=== PATIENT | female | born 1990 | race Caucasian/White ===

== ENCOUNTER 2023-09-06 09:03 | Outpatient (REF) | payer MEDICAID, SELFPAY ==
--- NOTE | ~2023-09-06 | XR_ITS ---
EXAMINATION: XR CERVICAL SPINE CLINICAL INFORMATION: Cervicalgia. COMPARISON: None available. TECHNIQUE: AP and lateral views of the cervical spine were obtained. FINDINGS: Vertebral body heights are normal. There is mild reversal of the normal lordotic curvature. The cervical disc spaces are well-maintained. No acute fracture or spondylolisthesis is seen. The posterior elements are intact. The dens is intact. No prevertebral soft tissue swelling is seen. There are carotid atherosclerotic calcifications, left greater than right. XR/XR cervical spine 2V IMPRESSION: 1. There is mild reversal of the normal lordotic curvature, which can be associated with muscle spasm. 2. No acute fracture or spondylolisthesis is seen. 3. The cervical disc spaces are well-maintained. 4. Bilateral carotid atherosclerotic calcifications are seen, which can be more fully evaluated with dedicated carotid ultrasound, if clinically indicated.
--- NOTE | ~2023-09-06 | XR_ITS ---
EXAMINATION: XR SHOULDER, RIGHT CLINICAL INFORMATION: Pain. COMPARISON: None available. TECHNIQUE: AP internal rotation, external rotation and scapula Y views of the right shoulder are submitted. FINDINGS: The bones and soft tissues are normal. No fracture. Glenohumeral and acromioclavicular alignment is anatomic with normal joint space. No abnormal soft tissue calcifications. XR/XR shoulder RT min 2V IMPRESSION: Normal right shoulder.
== END 2023-09-06 09:04 | disposition home or self-care (01) ==
LOC: HO.HOSX 09:03
PROVIDERS: Visit Provider Orthopaedic Surgery
DX: M54.2 Cervicalgia (principal); M25.511 Pain in right shoulder; M54.50 Low back pain, unspecified; M25.512 Pain in left shoulder
CPT/HCPCS: 72040; 73030; 99202

== ENCOUNTER 2023-09-06 09:35 | Outpatient (AMB) | payer MEDICAID, SELFPAY ==
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
[2023-09-06 10:03] VITALS: BMI 33.0
== END 2023-09-06 10:28 | disposition home or self-care (01) ==
PROVIDERS: Visit Provider Orthopaedic Surgery
DX: M54.2 Cervicalgia (principal); M25.511 Pain in right shoulder; M54.50 Low back pain, unspecified
CPT/HCPCS: 99202

== ENCOUNTER 2023-09-27 08:14 | Emergency (ER) | payer MEDICAID, SELFPAY ==
[2023-09-27 08:21] VITALS: BP 123/66; PULSE 83; RESP 18; TEMP 37.1; O2SAT 98; BMI 34.3
[2023-09-27 08:44] LABS: MANUAL DIFF FLAG NO
[2023-09-27 08:46] LABS: Basophils Percent Auto 0.3 % (0-2); Eosinophils Percent Auto 0.4 % (0-4); Hematocrit 38.1 % (37.0-47.0); Hemoglobin 12.6 g/dl (12.0-16.0); Imm Gran Abs Auto 0.04 X10*3/uL (0.00-0.03); Imm Gran Pct Auto 0.4 % (0.0-0.4); Lymphocytes Percent Auto 32.5 % (20-40); Mean Corpuscular HGB Conc 33.1 g/dl (31.0-35.0); Mean Corpuscular Hemoglobin 30.3 pg (27.0-33.0); Mean Corpuscular Volume 91.6 fL (80.0-98.0); Mean Platelet Volume 8.6 fL (9.4-12.3); Monocytes Absolute Auto 0.7 X10*3/uL (0.1-1.2); Monocytes Percent Auto 7.5 % (2-11); Neutrophils Absolute Auto 5.4 x10*3/uL (2.0-8.3); Neutrophils Percent Auto 58.9 % (45-73); Platelet Count 349 X10*3/uL (160-400); Red Blood Count 4.16 X10*6/uL (4.20-5.50); Red Cell Distribution Width 12.3 % (11.0-16.0); White Blood Count 9.1 X10*3/uL (4.8-10.8)
[2023-09-27 08:47] LABS: Appearance Urine Clear; Color Urine Yellow; Glucose Urine UA Negative (Negative); Leukocyte Esterase Urine Negative (Negative); Nitrite Urine Negative (Negative); Urine Blood Negative (Negative); Urine Ketones Negative (Negative); Urine Protein Negative (Neg-Trace)
[2023-09-27 08:48] LABS: UPreg QC Valid YES; Urine Pregnancy NEGATIVE (NEGATIVE)
[2023-09-27 08:53] LABS: IDNOW Serial# 08D9AD1C; Strep A Nucleic Acid Negative (Negative)
[2023-09-27 09:00] LABS: Anion Gap 13 (12-20); Blood Urea Nitrogen 10 mg/dL (9-16); Carbon Dioxide 23 mmol/L (22-29); Chloride 107 mmol/L (96-108); Creatinine Clr Calc Pharmacy 107.2; Estimated Glomerular Filt Rate > 60; Glucose Random 85 mg/dL (60-115); Potassium 3.8 mmol/L (3.3-5.1); Sodium 139 mmol/L (135-145)
[2023-09-27 09:05] LABS: IDNOW Serial# BCCEAD1C
[2023-09-27 09:06] LABS: COVID-19 Test Negative (Negative)
--- NOTE | 2023-09-27 09:08 | PC.NURSE ---
PT EATING CHIPS AND DRINKING SODA ON WAY TO ROOM
--- NOTE | 2023-09-27 09:11 | ED_ITS ---
HPI - General Adult General Chief complaint: General Medical Stated complaint: Coughing up blood, pain in left side of face Time Seen by Provider: 09/27/23 09:10 Source: patient Mode of arrival: ambulatory Limitations: no limitations History of Present Illness HPI narrative: 33-year-old female who presents emergency department for evaluation of left- sided facial discomfort, headache, photophobia, chills, sore throat, cough, shortness of breath, nausea, vomiting, myalgias, arthralgias and fatigue. Patient states she has been sick for 2 days her symptoms got worse today states that she has had a cough which was nonproductive but today she had several episodes where she coughed up small amount of bright red blood. He denied chest pain but states she does have shortness of breath but no dyspnea on exertion. She states that the skin on the left side of her face is very sensitive but she has not noticed any numbness or facial droop. Patient states she does have a history of genital herpes it and takes valacyclovir Related Data Previous Rx's Medication Instructions Recorded amoxicillin 500 mg capsule 1,000 mg (2 x 500 mg) PO Q12H 5 09/27/23 days #20 caps doxycycline hyclate 100 mg tablet 100 mg PO Q12H 5 days #10 tabs 09/27/23 Allergies Allergy/AdvReac Type Severity Reaction Status Date / Time atropine [From B-Maryam] Allergy Unknown Verified 09/06/23 10:02 bee pollen Allergy Unknown Verified 09/06/23 10:02 hyoscyamine [From B-Maryam] Allergy Unknown Verified 09/06/23 10:02 phenobarbital [From B-Maryam] Allergy Unknown Verified 09/06/23 10:02 scopolamine [From B-Maryam] Allergy Unknown Verified 09/06/23 10:02 abilify Allergy Unknown Uncoded 09/06/23 10:02 fish Allergy Unknown Uncoded 09/06/23 10:02 nuts Allergy Unknown Uncoded 09/06/23 10:02 resperdal Allergy Unknown Uncoded 09/06/23 10:02 Review of Systems 2 Review of Systems: Yes all other systems are reviewed and are negative [facility] Past Medical History [facility] Narrative: Past medical history: Neck and lower back pain, herpes simplex social history: Patient vapes nicotine products. She denies alcohol. She smokes marijuana Surgical History (Updated 09/06/23 @ 10:02 by SHAWN Treviño) Hx of section Social History Social History (Updated 09/06/23 @ 10:03 by SHAWN Treviño) e-Cigarette/Vaping Use: Currently Using Advance Directives: No Advance Directives Information Provided: Yes Current occupational status: unemployed Current occupation: right hand dominant Physical Exam ED Vital Signs: Vital Signs - 24 hr 09/27/23 08:21 09/27/23 09:29 Temperature 98.7 F 99.4 F Pulse Rate 83 66 Respiratory Rate 18 18 Blood Pressure 123/66 120/72 Pulse Oximetry 98 99 Oxygen Delivery Method Room Air Room Air BMI result Body Mass Index 34.3 Vital signs were no Exam General: Awake, alert in no distress Head: Normocephalic, atraumatic EENT: PERRL, Lids normal, sclera normal, conjunctiva normal, nose normal , ears normal, throat without erythema or exudates Neck: Supple, no adenopathy, no trachea midline or C-spine tenderness Lung: breath sounds symmetric, no wheezing, rales or rhonchi Chest: symmetric movement, nontender Heart: regular rate and rhythm, normal S1, S2 no murmurs or rubs Abdomen: soft, non-tender, nondistended, normal bowel sounds Back: no vertebral tenderness, no CVAT Extremities: no deformities, moves all extremities symmetrically Skin: no rashes, no lesion, normal color and warmth Neuro: Awake, alert, oriented, normal speech, cranial nerves intact, moves all extremities symmetrically Psych: Pleasant, cooperative Medical Decision Making Medical Decision Making MDM Narrative: 33-year-old female who presents emergency department for evaluation of left- sided facial discomfort, headache, photophobia, chills, sore throat, cough, shortness of breath, nausea, vomiting, myalgias, arthralgias and fatigue x2 days. Patient's physical examination was unremarkable, there is no evidence for Miranda's palsy at this time Following evaluation was ordered: CBC, BMP, COVID-19, strep, urinalysis, urine test 09:41 Patient's laboratory evaluation was unremarkable including a negative COVID and rapid strep test Patient's presentation is consistent with acute bronchitis causing hemoptysis, patient will be treated with doxycycline 100 mg q.12 hours x5 days and amoxicillin 1000 mg q.12 hours x5 days. At this time the patient does not have any evidence for Miranda's palsy but I did discuss the signs and symptoms and the need to return to the emergency department follow-up with her doctor for re-evaluation. Patient was advised to take Tylenol ibuprofen for pain. She was given printed and verbal instructions and discharged home Differential Diagnosis Differential Diagnoses: The differential diagnosis associated with the presentation includes Differential diagnosis includes was not limited to acute viral illness, bronchitis, pneumonia, Miranda's palsy, migraine, stroke Admission/Observation Consideration of admission/observation: Escalation of care including admission/observation considered Lab Data [facility] Lab Attestation statement: I reviewed the patient's lab results. See [facility] for discuss 09/27/23 08:37 09/27/23 08:37 Labs: Lab Results 09/27/23 Range/Units 08:37 WBC 9.1 (4.8-10.8) X10*3/uL RBC 4.16 L (4.20-5.50) X10*6/uL Hgb 12.6 (12.0-16.0) g/dl Hct 38.1 (37.0-47.0) % MCV 91.6 (80.0-98.0) fL MCH 30.3 (27.0-33.0) pg MCHC 33.1 (31.0-35.0) g/dl RDW 12.3 (11.0-16.0) % Plt Count 349 (160-400) X10*3/uL MPV 8.6 L (9.4-12.3) fL Immature Gran % (Auto) 0.4 (0.0-0.4) % Neut % (Auto) 58.9 (45-73) % Lymph % (Auto) 32.5 (20-40) % [place] % (Auto) 7.5 (2-11) % Eos % (Auto) 0.4 (0-4) % Baso % (Auto) 0.3 (0-2) % Lymph # (Auto) 3.0 (1.2-4.9) X10*3/uL [place] # (Auto) 0.7 (0.1-1.2) X10*3/uL Eos # (Auto) 0.0 (0.0-0.4) X10*3/uL Baso # (Auto) 0.0 (0.0-0.2) X10*3/uL Abs Immat Gran (auto) 0.04 H (0.00-0.03) X10*3/uL Absolute Neuts (auto) 5.4 (2.0-8.3) x10*3/uL Absolute Nucleated RBC 0.000 (0.0-0.012) X10*3/uL Nucleated RBC % (auto) 0.0 (0.0-0.2) /100WBC Sodium 139 (135-145) mmol/L Potassium 3.8 (3.3-5.1) mmol/L Chloride 107 (96-108) mmol/L Carbon Dioxide 23 (22-29) mmol/L Anion Gap 13 (12-20) BUN 10 (9-16) mg/dL Creatinine 0.71 (0.5-1.4) mg/dL Estim Creat Clear Calc 107.2 Estimated GFR > 60 Random Glucose 85 (60-115) mg/dL Calcium 9.0 (8.4-10.2) mg/dL Urine Color Yellow Urine Appearance Clear Urine pH 7.0 (5.0-9.0) Ur Specific [place] 1.020 (1.005-1.025) Urine Protein Negative (Neg-Trace) mg/dL Urine Glucose (UA) Negative (Negative) mg/dL Urine Ketones Negative (Negative) mg/dL Urine Blood Negative (Negative) Urine Nitrite Negative (Negative) Ur Leukocyte Esterase Negative (Negative) Urine Test NEGATIVE (NEGATIVE) COVID-19 (JIM) Negative (Negative) COVID-19 Clin Com See Note S. pyogenes GrpA LAURA Negative (Negative) Prescription Management I considered prescription management with: Antibiotic Discharge Plan Discharge Clinical Impression: Bronchitis, Hemoptysis, Acute facial pain Patient Disposition: Home, Self-Care Instructions: Acute Bronchitis (ED), Hemoptysis (ED) Additional Instructions: Your blood work was normal pain Your urine test was normal pain Your COVID-19 and rapid strep test were negative Your symptoms are consistent with a bronchitis which is an infection of your breathing tubes and this is most likely causing you to cough up blood. Take doxycycline 100 mg, 1 pill every 12 hours for 7 days Take amoxicillin 500 mg pills, 2 pills, every every 12 hours (2 times a day) for 5 days. Take ibuprofen 200 mg pills, 2 pills every 6 hours as needed for pain or fever. Take Tylenol (acetaminophen) 500 mg pills, 2 pills every 6 hours as needed for pain or fever. At this time, I believe that the pain of your skin on the left side of your face is related to a viral infection, you do not have any facial weakness but you may be developing early Miranda's palsy(cranial nerve 7 swelling caused by a viral). If you notice that your left eye is not closing completely or your left lip is droop then return to the emergency depart for re-evaluation and treatment or you should see your doctor for treatment Follow-up with your doctor in 2 days. Please return to the emergency department if your symptoms get worse or if you develop any symptoms that are concerning to you. Prescriptions: New amoxicillin 500 mg capsule 1,000 mg PO Q12H 5 Days Qty: 20 0RF doxycycline hyclate 100 mg tablet 100 mg PO Q12H 5 Days Qty: 10 0RF
[2023-09-27 09:29] VITALS: BP 120/72; PULSE 66; RESP 18; TEMP 37.4; O2SAT 99
== END 2023-09-27 10:02 | disposition home or self-care (01) ==
PROVIDERS: Emergency Provider Emergency Medicine Emergency Medical Services
DX: J40 Bronchitis, not specified as acute or chronic (principal); R31.9 Hematuria, unspecified; R51.9 Headache, unspecified; Z11.52 Encounter for screening for COVID-19; Z20.822 Contact with and (suspected) exposure to COVID-19; Z79.899 Other long term (current) drug therapy
CPT/HCPCS: 36415; 80048; 81003; 81025; 85025; 87635; 87651; 99283; 99284

== ENCOUNTER 2023-10-17 01:09 | Emergency (ER) | payer MEDICAID, SELFPAY ==
--- NOTE | 2023-10-17 | ECG_ITS ---
Test Reason : FLU LIKE SYMPTOMS Blood Pressure : / mmHG Vent. Rate : 077 BPM Atrial Rate : 077 BPM P-R Int : 128 ms QRS Dur : 090 ms QT Int : 380 ms P-R-T Axes : 068 071 032 degrees QTc Int : 430 ms Normal sinus rhythm Normal ECG No previous ECGs available Referred By: Generic ED Physician Electronically Signed By:SHELLI PRIETO
--- NOTE | ~2023-10-17 | XR_ITS ---
EXAMINATION: XR CHEST CLINICAL INFORMATION: Shortness of breath. COMPARISON: None available. TECHNIQUE: Frontal view of the chest was obtained. FINDINGS: No significant abnormality is noted involving the heart, lungs, mediastinum, bony thorax or soft tissues. XR/XR chest 1V IMPRESSION: Unremarkable examination.
[2023-10-17 01:56] VITALS: BP 133/79; PULSE 86; RESP 19; TEMP 36.7; O2SAT 98; BMI 34.1
[2023-10-17 02:19] LABS: MANUAL DIFF FLAG NO
[2023-10-17 02:21] LABS: Basophils Percent Auto 0.4 % (0-2); Eosinophils Absolute Auto 0.1 X10*3/uL (0.0-0.4); Eosinophils Percent Auto 0.8 % (0-4); Hemoglobin 12.5 g/dl (12.0-16.0); Imm Gran Abs Auto 0.03 X10*3/uL (0.00-0.03); Imm Gran Pct Auto 0.3 % (0.0-0.4); Lymphocytes Absolute Auto 3.7 X10*3/uL (1.2-4.9); Lymphocytes Percent Auto 35.8 % (20-40); Mean Corpuscular HGB Conc 33.8 g/dl (31.0-35.0); Mean Corpuscular Hemoglobin 30.3 pg (27.0-33.0); Mean Corpuscular Volume 89.8 fL (80.0-98.0); Mean Platelet Volume 8.5 fL (9.4-12.3); Monocytes Absolute Auto 1.1 X10*3/uL (0.1-1.2); Monocytes Percent Auto 10.6 % (2-11); Neutrophils Absolute Auto 5.5 x10*3/uL (2.0-8.3); Neutrophils Percent Auto 52.1 % (45-73); Platelet Count 336 X10*3/uL (160-400); Red Blood Count 4.12 X10*6/uL (4.20-5.50); Red Cell Distribution Width 12.4 % (11.0-16.0); White Blood Count 10.5 X10*3/uL (4.8-10.8)
[2023-10-17 02:34] LABS: Alanine Aminotransferase 15 U/L (0-31); Albumin Level 4.3 g/dL (3.5-5.0); Alkaline Phosphatase 61 U/L (39-117); Anion Gap 14 (12-20); Aspartate Amino Transferase 20 U/L (5-31); Bilirubin Total 0.5 mg/dL (0.0-1.0); Blood Urea Nitrogen 16 mg/dL (9-16); Calcium 8.9 mg/dL (8.4-10.2); Carbon Dioxide 24 mmol/L (22-29); Chloride 104 mmol/L (96-108); Creatinine Clr Calc Pharmacy 92.6; Estimated Glomerular Filt Rate > 60; Glucose Random 106 mg/dL (60-115); Potassium 3.4 mmol/L (3.3-5.1); Sodium 139 mmol/L (135-145); Total Protein 7.5 g/dL (6.5-8.0)
[2023-10-17 02:38] LABS: IDNOW Serial# 58CA691E; Strep A Nucleic Acid Negative (Negative)
[2023-10-17 03:02] LABS: Influenza A PCR NEGATIVE (Negative); Influenza B PCR NEGATIVE (Negative); Resp Syncy Virus RNA Qual PCR NEGATIVE (Negative); SARS COV2 PCR INHOUSE NEGATIVE (Negative)
[2023-10-17 03:58] VITALS: BP 101/51; PULSE 78; RESP 17; TEMP 36.6; O2SAT 97
== END 2023-10-17 06:05 | disposition left against medical advice (07) ==
PROVIDERS: Physician Assistant Medical; Emergency Provider Emergency Medicine
DX: R05.9 Cough, unspecified (principal); R06.02 Shortness of breath; Z20.822 Contact with and (suspected) exposure to COVID-19; Z20.828 Contact with and (suspected) exposure to other viral communicable diseases
CPT/HCPCS: 0241U; 36415; 71045; 80053; 85025; 87651; 93005; 99283

== ENCOUNTER → 2023-10-17 02:06 | Outpatient (BNV) | payer MEDICAID, SELFPAY | PROVIDERS: Emergency Provider Emergency Medicine; Visit Provider Internal Medicine | DX: R09.89 Other specified symptoms and signs involving the circulatory and respiratory systems (principal) | CPT/HCPCS: 93010 ==

== ENCOUNTER 2023-12-21 18:02 | Outpatient (REF) | payer MEDICAID, SELFPAY | END 2023-12-21 18:03 | disposition home or self-care (01) | LOC: HO.MRI 18:02 | PROVIDERS: Visit Provider Orthopaedic Surgery | DX: Z13.89 Encounter for screening for other disorder (principal) ==

== ENCOUNTER 2024-01-12 15:32 | Emergency (ER) | payer MEDICAID, SELFPAY ==
--- NOTE | ~2024-01-12 | US_ITS ---
EXAMINATION: US PELVIS CLINICAL INFORMATION: Vaginal bleeding and cramping. Question miscarriage. COMPARISON: None available. TECHNIQUE: Ultrasound of the pelvis is performed using transabdominal transducers along with Doppler. Transvaginal imaging was declined by the patient. FINDINGS: Uterus: The uterus is anteverted and measures 7.5 x 3.2 x 4.4 cm. Volume 55.29 mL. No intrauterine gestational sac seen. The double wall endometrial thickness is 0.196 cm. The uterus is smooth in contour and has normal myometrial echogenicity. No visible fibroid. Adnexa: Both ovaries are visualized. There is normal color flow to the adnexa. There is no ovarian torsion. There is no pelvic ascites or fluid collection. Right ovary measures 2.9 x 1.6 x 2.3 cm. Left ovary measures 2.9 x 1.8 x 2.0 cm. There is anechoic cyst measuring 1.6 x 1.2 x 1.2 cm US/US pelvic and transvaginal IMPRESSION: 1. No intrauterine or gestational sac seen. The uterus is unremarkable. This could be too early in or spontaneous . 2. Small left ovarian cyst. 3. The right ovary is unremarkable. 4. There is no free fluid in the cul-de-sac.
[2024-01-12 16:11] VITALS: BP 131/77; PULSE 95; RESP 16; TEMP 36.8; O2SAT 98; BMI 29.3
--- NOTE | 2024-01-12 16:11 | ED_ITS ---
HPI - Female Genitourinary General Chief complaint: Vaginal Bleeding Stated complaint: miscarriage Time Seen by Provider: 01/12/24 19:22 Source: patient Mode of arrival: ambulatory Limitations: no limitations History of Present Illness HPI Narrative: 33 year old female with no significant pmhx presents to the ED today for evaluation of vaginal bleeding x5 days. She reports changing pads every 30 minutes. Denies passing clots. Additionally endorses associated lower abdominal cramping and an episode of dizziness today. She has not currently on control as she stopped taking OCPs approximately 4 months ago. Endorses possibility of . Her last menstrual period was at the beginning of November. Denies fever, chills, flank pain, dysuria, hematuria, abnormal, vaginal discharge. Related Data Previous Rx's Medication Instructions Recorded amoxicillin 500 mg capsule 1,000 mg (2 x 500 mg) PO Q12H 5 09/27/23 days #20 caps doxycycline hyclate 100 mg tablet 100 mg PO Q12H 5 days #10 tabs 09/27/23 Allergies Allergy/AdvReac Type Severity Reaction Status Date / Time atropine [From B-Maryam] Allergy Unknown Verified 01/12/24 16:11 bee pollen Allergy Unknown Verified 01/12/24 16:11 hyoscyamine [From B-Maryam] Allergy Unknown Verified 01/12/24 16:11 phenobarbital [From B-Maryam] Allergy Unknown Verified 01/12/24 16:11 scopolamine [From B-Maryam] Allergy Unknown Verified 01/12/24 16:11 abilify Allergy Unknown Uncoded 10/17/23 01:56 fish Allergy Unknown Uncoded 10/17/23 01:56 nuts Allergy Unknown Uncoded 10/17/23 01:56 resperdal Allergy Unknown Uncoded 10/17/23 01:56 Review of Systems 2 Review of Systems: Constitutional: No fever, chills, fatigue, night sweats, weight changes ENT/Mouth: No ear pain, hearing loss, nasal congestion, sinus pain, rhinorrhea, sore throat Eyes: No eye pain, swelling, redness, vision changes, discharge Cardio: No chest pain, palpitations, THOMPSON, orthopnea, peripheral edema Pulm: No SOB, cough, sputum, wheezing, dyspnea, hemoptysis GI: No nausea, vomiting, hematemesis, diarrhea, constipation, hematochezia, melena, +lower abd cramping : No dysuria, frequency, urgency, hesitancy, hematuria, flank pain, urinary flow changes, urinary incontinence or retention, +vaginal bleeding MSK: No back pain, neck pain, joint pain, myalgias Skin: No lesions, rashes Neuro: No weakness, numbness, paresthesias, LOC, dizziness, headache Psych: No anxiety/panic, depression, SI/HI, AH/VH All other systems reviewed and are negative. [facility] Past Medical History Attestation statement: The following information was validated with the patient. Source: old records reviewed and nursing notes reviewed Surgical History Hx of section Social History Social History e-Cigarette/Vaping Use: Currently Using Advance Directives: No Advance Directives Information Provided: No Current occupational status: unemployed Current occupation: right hand dominant Physical Exam 2 Vital Signs: Vital Signs: Last Vital Signs Temp 97.9 F 01/12/24 19:20 Pulse 75 01/12/24 19:20 Resp 16 01/12/24 19:20 BP 125/68 01/12/24 19:20 Pulse Ox 100 01/12/24 19:20 O2 Del Method Room Air 01/12/24 19:20 BMI result Body Mass Index 29.3 Vital signs stable, afebrile. Const: General: cooperative, healthy appearing, comfortable and no acute distress Orientation/consciousness: patient oriented x3 Limitations: no limitations HEENT: Head: Yes normal to inspection, Yes No palpable skull fracture present, Yes normocephalic and Yes atraumatic Eyes: General: appearance normal, both eyes and all related structures C onjunctivae: conjunctivae normal Sclerae: sclerae normal Pupils: Equal, round and reactive pupils present Neck: Neck: Yes normal visual inspection, Yes full ROM and Yes no lymphadenopathy Resp: Effort & Inspection: normal respiratory effort and able to speak in complete sentences Auscultation: clear to auscultation bilaterally Cardio: Jugular venous distension: no JVD Rate: regular rate Rhythm: r egular rhythm GI: Other: + abdomen soft, nondistended, nontender to palpation, no rebound tenderness or guarding. Normoactive bowel sounds x4. Inspection: Yes normal to inspection : General: Yes no CVA tenderness Back/Spine/Pelvis: Back: no CVA tenderness Skin: General skin exam: no rashes or lesions noted Neuro: General: patient oriented x3 and gait normal Cranial nerves: Yes Equal, round and reactive pupils present Motor exam (neuro): 5/5 motor strength present throughout Extrem: General: Yes normal to inspection and Yes capillary refill normal Course Course Course Narrative: RME:?33 yo female here for eval of vaginal bleeding x5 days. changing pads every half hour. no clotting. endorses low abd cramping and increased dizziness. not currently on BC as she stopped taking OCPs 4 months ago. LMP beginning of november. labs, UA and US ordered. Full HPI, ROS and PE to be performed by the primary ED provider. Reevaluation(s) Reevaluation #1: 1937-- CBC without leukocytosis or left shift. No anemia. H&H stable. Chemistry without acute electrolyte abnormality requiring intervention. Beta hCG undetectable > unlikely. Normal renal and liver function. Urine is negative for infection and . No blood. Pelvic/transvaginal ultrasound does not demonstrate intrauterine or gestational sac. There is a small left ovarian cyst without free fluid in cul-de-sac. Right ovary is unremarkable. > at this time I do not have concern for spontaneous as beta hCG is undetectable. Patient likely has dysmenorrhea with menstrual period. Discussed all workup results with patient. Advised her to take anti-inflammatories at home for pain/discomfort. Advised her to follow-up with her PCP and or OBGYN regarding today's visit. Patient has remained stable throughout ED visit today. Discussed worrisome signs and symptoms and when to return to the ED. All questions answered at this time. Patient is agreeable with disposition and stable for discharge. Medical Decision Making Medical Decision Making MDM Narrative: 33 year old female with no significant pmhx presents to the ED today for evaluation of vaginal bleeding x5 days. Vital signs stable, afebrile. She is nontoxic-appearing and in no acute distress. No pallor. Lying comfortably on exam bed. Abdomen is soft, nondistended, nontender to palpation, no rebound tenderness or guarding. Normoactive bowel sounds x4. Bladder not palpable. No CVAT bilaterally. Differential diagnosis includes , menstrual cramps, spontaneous , ovarian cyst, ovarian cyst rupture. Lower suspicion for pyelonephritis, UTI, ovarian torsion, ectopic . Plan for labs, urine, ultrasound and re-evaluation. Differential Diagnosis Differential Diagnoses: The differential diagnosis associated with the presentation includes As above Admission/Observation Not indicated Lab Data MDM Lab Attestation statement: I reviewed the patient's lab results. As above 01/12/24 17:35 01/12/24 17:35 Labs: Lab Results 01/12/24 01/12/24 Range/Units 17:35 18:45 WBC 8.1 (4.8-10.8) X10*3/uL RBC 4.71 (4.20-5.50) X10*6/uL Hgb 14.0 (12.0-16.0) g/dl Hct 42.5 (37.0-47.0) % MCV 90.2 (80.0-98.0) fL MCH 29.7 (27.0-33.0) pg MCHC 32.9 (31.0-35.0) g/dl RDW 12.6 (11.0-16.0) % Plt Count 344 (160-400) X10*3/uL MPV 8.4 L (9.4-12.3) fL Immature Gran % (Auto) 0.2 (0.0-0.4) % Neut % (Auto) 56.2 (45-73) % Lymph % (Auto) 34.5 (20-40) % [place] % (Auto) 8.2 (2-11) % Eos % (Auto) 0.5 (0-4) % Baso % (Auto) 0.4 (0-2) % Lymph # (Auto) 2.8 (1.2-4.9) X10*3/uL [place] # (Auto) 0.7 (0.1-1.2) X10*3/uL Eos # (Auto) 0.0 (0.0-0.4) X10*3/uL Baso # (Auto) 0.0 (0.0-0.2) X10*3/uL Abs Immat Gran (auto) 0.02 (0.00-0.03) X10*3/uL Absolute Neuts (auto) 4.6 (2.0-8.3) x10*3/uL Absolute Nucleated RBC 0.000 (0.0-0.012) X10*3/uL Nucleated RBC % (auto) 0.0 (0.0-0.2) /100WBC PT 12.1 (11.1-13.3) SEC INR 1.0 (0.9-1.1) Sodium 140 (135-145) mmol/L Potassium 3.7 (3.3-5.1) mmol/L Chloride 105 (96-108) mmol/L Carbon Dioxide 30 H (22-29) mmol/L Anion Gap 9 L (12-20) BUN 7 L (9-16) mg/dL Creatinine 0.75 (0.5-1.4) mg/dL Estim Creat Clear Calc 93.5 Estimated GFR > 60 Random Glucose 103 (60-115) mg/dL Calcium 9.3 (8.4-10.2) mg/dL Total Bilirubin 0.4 (0.0-1.0) mg/dL AST 16 (5-31) U/L ALT 16 (0-31) U/L Alkaline Phosphatase 80 (39-117) U/L Total Protein 7.1 (6.5-8.0) g/dL Albumin 4.2 (3.5-5.0) g/dL Beta HCG, Quant < 2 mIU/mL Urine Color Yellow Urine Appearance Clear Urine pH 6.0 (5.0-9.0) Ur Specific [place] >= 1.030 H (1.005-1.025) Urine Protein Negative (Neg-Trace) mg/dL Urine Glucose (UA) Negative (Negative) mg/dL Urine Ketones Negative (Negative) mg/dL Urine Blood Negative (Negative) Urine Nitrite Negative (Negative) Ur Leukocyte Esterase Negative (Negative) Urine Test NEGATIVE (NEGATIVE) Independent Interpretation I performed an independent interpretation of an: Ultrasound Interpretation: I have reviewed pelvic/transvaginal ultrasound and agree with radiologist's interpretation. Radiology Impression Discussion of test interpretation with radiology: I have reviewed the radiologist's reading. Radiologist Impression: EXAMINATION: US PELVIS CLINICAL INFORMATION: Vaginal bleeding and cramping. Question miscarriage. COMPARISON: None available. TECHNIQUE: Ultrasound of the pelvis is performed using transabdominal transducers along with Doppler. Transvaginal imaging was declined by the patient. FINDINGS: Uterus: The uterus is anteverted and measures 7.5 x 3.2 x 4.4 cm. Volume 55.29 mL. No intrauterine gestational sac seen. The double wall endometrial thickness is 0.196 cm. The uterus is smooth in contour and has normal myometrial echogenicity. No visible fibroid. Adnexa: Both ovaries are visualized. There is normal color flow to the adnexa. There is no ovarian torsion. There is no pelvic ascites or fluid collection. Right ovary measures 2.9 x 1.6 x 2.3 cm. Left ovary measures 2.9 x 1.8 x 2.0 cm. There is anechoic cyst measuring 1.6 x 1.2 x 1.2 cm US/US pelvic and transvaginal IMPRESSION: 1. No intrauterine or gestational sac seen. The uterus is unremarkable. This could be too early in or spontaneous . 2. Small left ovarian cyst. 3. The right ovary is unremarkable. 4. There is no free fluid in the cul-de-sac. External Record Review External record reviewed: Inpatient record, Office record, Outpatient record, Prior outpatient labs, Prior outpatient radiology, Primary care record and Outside ED record Prescription Management I considered prescription management with: Pain Medication Social Determinants Patient?s care significantly limited by Social Determinants of Health including: Other Social Determinant of Health Discharge Plan Discharge Clinical Impression: Dysmenorrhea Patient Disposition: Home, Self-Care Instructions: Dysmenorrhea (ED) Additional Instructions: Your labs today are reassuring. You tested negative for . Your urine is negative for infection. As discussed, your ultrasound shows normal uterus with a small left ovarian cyst. Take tylenol as needed for pain/ discomfort. Follow up with PCP and/or OBGYN. Return with new or worsening symptoms. In the case of emergency call 911. Prescriptions: No Action amoxicillin 500 mg capsule 1,000 mg PO Q12H 5 Days Qty: 20 0RF doxycycline hyclate 100 mg tablet 100 mg PO Q12H 5 Days Qty: 10 0RF Referrals: Physician,Unknown J [Primary Care Provider] - Stand Alone Forms: Work/School Release Interventions: ED Discharge Assessment Last Done: 01/12/24 19:45 Discharge Date/Time: 01/12/24 19:50
[2024-01-12 17:40] LABS: MANUAL DIFF FLAG NO
[2024-01-12 17:45] LABS: Basophils Percent Auto 0.4 % (0-2); Eosinophils Percent Auto 0.5 % (0-4); Hematocrit 42.5 % (37.0-47.0); Imm Gran Abs Auto 0.02 X10*3/uL (0.00-0.03); Imm Gran Pct Auto 0.2 % (0.0-0.4); Lymphocytes Absolute Auto 2.8 X10*3/uL (1.2-4.9); Lymphocytes Percent Auto 34.5 % (20-40); Mean Corpuscular HGB Conc 32.9 g/dl (31.0-35.0); Mean Corpuscular Hemoglobin 29.7 pg (27.0-33.0); Mean Corpuscular Volume 90.2 fL (80.0-98.0); Mean Platelet Volume 8.4 fL (9.4-12.3); Monocytes Absolute Auto 0.7 X10*3/uL (0.1-1.2); Monocytes Percent Auto 8.2 % (2-11); Neutrophils Absolute Auto 4.6 x10*3/uL (2.0-8.3); Neutrophils Percent Auto 56.2 % (45-73); Platelet Count 344 X10*3/uL (160-400); Red Blood Count 4.71 X10*6/uL (4.20-5.50); Red Cell Distribution Width 12.6 % (11.0-16.0); White Blood Count 8.1 X10*3/uL (4.8-10.8)
[2024-01-12 17:50] LABS: Prothrombin Time 12.1 SEC (11.1-13.3)
[2024-01-12 18:06] LABS: Alanine Aminotransferase 16 U/L (0-31); Albumin Level 4.2 g/dL (3.5-5.0); Alkaline Phosphatase 80 U/L (39-117); Anion Gap 9 (12-20); Aspartate Amino Transferase 16 U/L (5-31); Bilirubin Total 0.4 mg/dL (0.0-1.0); Blood Urea Nitrogen 7 mg/dL (9-16); Calcium 9.3 mg/dL (8.4-10.2); Carbon Dioxide 30 mmol/L (22-29); Chloride 105 mmol/L (96-108); Creatinine Clr Calc Pharmacy 93.5; Estimated Glomerular Filt Rate > 60; Glucose Random 103 mg/dL (60-115); HCG Quantitative < 2 mIU/mL; Potassium 3.7 mmol/L (3.3-5.1); Sodium 140 mmol/L (135-145); Total Protein 7.1 g/dL (6.5-8.0)
[2024-01-12 19:12] LABS: Appearance Urine Clear; Color Urine Yellow; Glucose Urine UA Negative (Negative); Leukocyte Esterase Urine Negative (Negative); Nitrite Urine Negative (Negative); Specific Gravity - Urine >= 1.030 (1.005-1.025); Urine Blood Negative (Negative); Urine Ketones Negative (Negative); Urine Protein Negative (Neg-Trace)
[2024-01-12 19:14] LABS: UPreg QC Valid YES; Urine Pregnancy NEGATIVE (NEGATIVE)
[2024-01-12 19:20] VITALS: BP 125/68; PULSE 75; RESP 16; TEMP 36.6; O2SAT 100
[2024-01-12 19:45] VITALS: BP 125/68; PULSE 75; RESP 16; TEMP 36.6; O2SAT 100
== END 2024-01-12 19:50 | disposition home or self-care (01) ==
PROVIDERS: Physician Assistant Medical; Emergency Provider Student in an Organized Health Care Education/Training Program
DX: N94.6 Dysmenorrhea, unspecified (principal)
CPT/HCPCS: 36415; 76830; 76856; 80053; 81003; 81025; 84702; 85025; 85610; 99283; 99284

== ENCOUNTER 2024-03-27 16:31 | Emergency (ER) | payer MEDICAID, SELFPAY ==
--- NOTE | ~2024-03-27 | CT_ITS ---
EXAMINATION: CT HEAD WITHOUT CONTRAST CLINICAL INFORMATION: Confusion. COMPARISON: None available. TECHNIQUE: Contiguous axial imaging was performed from the skull base to vertex without intravenous administration of contrast. Multiplanar reformatted images are submitted. This CT examination was performed using dose optimization techniques as appropriate, variously including the following: *Automated exposure control *Adjustment of mA and/or kV according to patient size (this includes techniques or standardized protocols for targeted exams where dose is matched to indication/reason for exam; i.e. extremities or head) *Use of iterative reconstruction technique DLP: 592 mGy-cm FINDINGS: There is no acute intracranial hemorrhage or evidence of territorial infarction. No abnormal mass effect or midline shift is seen. [place] to white matter differentiation is well preserved. There is no abnormal attenuation within the brain parenchyma. The ventricles are normal in size. No extra-axial fluid collections are identified. The calvarium and scalp soft tissues are normal. The middle ear cavity and mastoid air cells are clear. The visualized paranasal sinuses are clear. CT/CT head/brain wo IV con IMPRESSION: No acute intracranial pathology.
[2024-03-27 18:14] VITALS: BP 134/89; PULSE 80; RESP 18; TEMP 36.3; O2SAT 99; BMI 27.8
--- NOTE | 2024-03-27 18:14 | ED.GENADULT ---
HPI - General Adult General Chief complaint: General Medical Stated complaint: swollen pain throat Related Data Previous Rx's ?Medication ?Instructions ?Recorded amoxicillin 500 mg capsule 1,000 mg (2 x 500 mg) PO Q12H 5 09/27/23 days #20 caps doxycycline hyclate 100 mg tablet 100 mg PO Q12H 5 days #10 tabs 09/27/23 Allergies Allergy/AdvReac Type Severity Reaction Status Date / Time atropine [From B-Maryam] Allergy Unknown Verified 03/27/24 18:15 bee pollen Allergy Unknown Verified 03/27/24 18:15 fish derived [fish] Allergy Unknown Verified 03/27/24 18:15 hyoscyamine [From B-Maryam] Allergy Unknown Verified 03/27/24 18:15 phenobarbital [From B-Maryam] Allergy Unknown Verified 03/27/24 18:15 risperidone [From Risperdal] Allergy Unknown Verified 03/27/24 18:15 scopolamine [From B-Maryam] Allergy Unknown Verified 03/27/24 18:15 nuts Allergy Unknown Uncoded 10/17/23 01:56 PMFSH Past Medical History Surgical History Hx of section Social History Social History e-Cigarette/Vaping Use: Currently Using Advance Directives: No Advance Directives Information Provided: No Do you have a plan to hurt others: No Plan Current occupational status: unemployed Current occupation: right hand dominant Physical Exam ED Vital Signs: Vital Signs - 24 hr 03/27/24 18:14 Temperature 97.4 F Pulse Rate 80 Respiratory Rate 18 Blood Pressure 134/89 Pulse Oximetry 99 BMI result Body Mass Index 27.8 Course Course Course Narrative: This is a Rapid Medical Examination (RME) performed by Marshall Dowd PA-C in triage. Full HPI, ROS, assessment and treatment plan per primary provider in the Main ED. 34 yo female here with multiple complaints. she endorses right lower molar pain/ swelling x days, worsening yesterday. patient was seen by her dentist 2 weeks ago, prior to onset of pain. reports increased confusion/ disorientatoin x4 days. is unsure if this is stress related as her daughter was recently admitted to [facility]. admits to using cocaine, last used this morning. exam is nonfocal. AOX3 in triage. restless in triage. ambulating with steady gait. no facial droop or pronator drift. swelling noted to right buccal mucosa and right lower lingual gingiva. no obvious abscess. no drainage. multiple dental carries. Plan: labs, UA, UDS ordered. Reevaluation(s) Reevaluation #1: Patient left the ED without completing treatment. Medical Decision Making Lab Data 03/27/24 18:28 03/27/24 18:28 Labs: Lab Results 03/27/24 03/27/24 03/27/24 Range/Units 18:28 18:35 18:36 WBC 8.2 (4.8-10.8) X10*3/uL RBC 4.50 (4.20-5.50) X10*6/uL Hgb 14.2 (12.0-16.0) g/dl Hct 41.0 (37.0-47.0) % MCV 91.1 (80.0-98.0) fL MCH 31.6 (27.0-33.0) pg MCHC 34.6 (31.0-35.0) g/dl RDW 13.1 (11.0-16.0) % Plt Count 345 (160-400) X10*3/uL MPV 8.6 L (9.4-12.3) fL Immature Gran % (Auto) 0.1 (0.0-0.4) % Neut % (Auto) 39.2 L (45-73) % Lymph % (Auto) 49.9 H (20-40) % [place] % (Auto) 10.1 (2-11) % Eos % (Auto) 0.2 (0-4) % Baso % (Auto) 0.5 (0-2) % Lymph # (Auto) 4.1 (1.2-4.9) X10*3/uL [place] # (Auto) 0.8 (0.1-1.2) X10*3/uL Eos # (Auto) 0.0 (0.0-0.4) X10*3/uL Baso # (Auto) 0.0 (0.0-0.2) X10*3/uL Abs Immat Gran (auto) 0.01 (0.00-0.03) X10*3/uL Absolute Neuts (auto) 3.2 (2.0-8.3) x10*3/uL Absolute Nucleated RBC 0.000 (0.0-0.012) X10*3/uL Nucleated RBC % (auto) 0.0 (0.0-0.2) /100WBC Sodium 141 (135-145) mmol/L Potassium 3.6 (3.3-5.1) mmol/L Chloride 102 (96-108) mmol/L Carbon Dioxide 30 H (22-29) mmol/L Anion Gap 13 (12-20) BUN 12 (9-16) mg/dL Creatinine 0.73 (0.5-1.4) mg/dL Estim Creat Clear Calc 92.7 Estimated GFR > 60 Random Glucose 95 (60-115) mg/dL Calcium 9.5 (8.4-10.2) mg/dL Magnesium 2.2 (1.6-2.6) mg/dL Total Bilirubin 0.4 (0.0-1.0) mg/dL AST 19 (5-31) U/L ALT 17 (0-31) U/L Alkaline Phosphatase 89 (39-117) U/L Total Protein 7.4 (6.5-8.0) g/dL Albumin 4.4 (3.5-5.0) g/dL Urine Color Yellow Urine Appearance Clear Urine pH 6.5 (5.0-9.0) Ur Specific [place] 1.010 (1.005-1.025) Urine Protein Negative (Neg-Trace) mg/dL Urine Glucose (UA) Negative (Negative) mg/dL Urine Ketones Negative (Negative) mg/dL Urine Blood Negative (Negative) Urine Nitrite Negative (Negative) Ur Leukocyte Esterase Negative (Negative) Urine Test NEGATIVE (NEGATIVE) Urine Opiates Screen Not Detected (Not Detect) Ur Buprenorphine Scrn Not Detected (Not Detect) ng/mL Ur Oxycodone Screen Not Detected (Not Detect) ng/mL Urine Methadone Screen Not Detected (Not Detect) ng/mL Urine Fentanyl Screen Not Detected (Not Detect) Ur Barbiturates Screen Not Detected (Not Detect) Ur Phencyclidine Scrn Not Detected (Not Detect) Ur Amphetamines Screen Not Detected (Not Detect) U Benzodiazepines Scrn Not Detected (Not Detect) Urine Cocaine Screen POSITIVE H (Not Detect) U Marijuana (THC) Screen POSITIVE H (Not Detect) Ethyl Alcohol < 10 mg/dL S. pyogenes GrpA LAURA Negative (Negative) Discharge Plan Discharge Clinical Impression: Pain, dental Patient Disposition: Left W/O Completing Treatment Prescriptions: No Action amoxicillin 500 mg capsule 1,000 mg PO Q12H 5 Days Qty: 20 0RF doxycycline hyclate 100 mg tablet 100 mg PO Q12H 5 Days Qty: 10 0RF Discharge Date/Time: 03/27/24 20:29
[2024-03-27 18:35] LABS: MANUAL DIFF FLAG NO
[2024-03-27 18:36] LABS: Basophils Percent Auto 0.5 % (0-2); Eosinophils Percent Auto 0.2 % (0-4); Hemoglobin 14.2 g/dl (12.0-16.0); Imm Gran Abs Auto 0.01 X10*3/uL (0.00-0.03); Imm Gran Pct Auto 0.1 % (0.0-0.4); Lymphocytes Absolute Auto 4.1 X10*3/uL (1.2-4.9); Lymphocytes Percent Auto 49.9 % (20-40); Mean Corpuscular HGB Conc 34.6 g/dl (31.0-35.0); Mean Corpuscular Hemoglobin 31.6 pg (27.0-33.0); Mean Corpuscular Volume 91.1 fL (80.0-98.0); Mean Platelet Volume 8.6 fL (9.4-12.3); Monocytes Absolute Auto 0.8 X10*3/uL (0.1-1.2); Monocytes Percent Auto 10.1 % (2-11); Neutrophils Absolute Auto 3.2 x10*3/uL (2.0-8.3); Neutrophils Percent Auto 39.2 % (45-73); Platelet Count 345 X10*3/uL (160-400); Red Cell Distribution Width 13.1 % (11.0-16.0); White Blood Count 8.2 X10*3/uL (4.8-10.8)
[2024-03-27 18:50] LABS: UPreg QC Valid YES; Urine Pregnancy NEGATIVE (NEGATIVE)
[2024-03-27 18:51] LABS: IDNOW Serial# 6674DD1D; Strep A Nucleic Acid Negative (Negative)
[2024-03-27 18:55] LABS: Alanine Aminotransferase 17 U/L (0-31); Albumin Level 4.4 g/dL (3.5-5.0); Alkaline Phosphatase 89 U/L (39-117); Anion Gap 13 (12-20); Aspartate Amino Transferase 19 U/L (5-31); Bilirubin Total 0.4 mg/dL (0.0-1.0); Blood Urea Nitrogen 12 mg/dL (9-16); Calcium 9.5 mg/dL (8.4-10.2); Carbon Dioxide 30 mmol/L (22-29); Chloride 102 mmol/L (96-108); Creatinine Clr Calc Pharmacy 92.7; Estimated Glomerular Filt Rate > 60; Glucose Random 95 mg/dL (60-115); Magnesium 2.2 mg/dL (1.6-2.6); Potassium 3.6 mmol/L (3.3-5.1); Sodium 141 mmol/L (135-145); Total Protein 7.4 g/dL (6.5-8.0)
[2024-03-27 18:59] LABS: Amphetamine Screen Urine Not Detected (Not Detect); Barbiturates, Urine Not Detected (Not Detect); Benzodiazepines Screen Urine Not Detected (Not Detect); Buprenorphine Scr Not Detected (Not Detect); Cannabinoid Screen Urine POSITIVE (Not Detect); Cocaine Screen Urine POSITIVE (Not Detect); Fentanyl, urine Not Detected (Not Detect); Methadone Screen, Urine Not Detected (Not Detect); Opiate Screen Urine Not Detected (Not Detect); Oxycodone Screen Urine Not Detected (Not Detect); Phencyclidine Screen Urine Not Detected (Not Detect)
[2024-03-27 19:02] LABS: Ethanol < 10 mg/dL
[2024-03-27 19:48] LABS: Appearance Urine Clear; Color Urine Yellow; Glucose Urine UA Negative (Negative); Leukocyte Esterase Urine Negative (Negative); Nitrite Urine Negative (Negative); PH 6.5 (5.0-9.0); Urine Blood Negative (Negative); Urine Ketones Negative (Negative); Urine Protein Negative (Neg-Trace)
== END 2024-03-27 20:29 | disposition left against medical advice (07) ==
PROVIDERS: Physician Assistant Medical; Emergency Provider Emergency Medicine
DX: K08.89 Other specified disorders of teeth and supporting structures (principal); R07.0 Pain in throat; R41.0 Disorientation, unspecified; Z79.899 Other long term (current) drug therapy
CPT/HCPCS: 36415; 70450; 80053; 80307; 81003; 81025; 83735; 85025; 87651; 99282; 99284

== ENCOUNTER 2024-05-05 22:16 | Emergency (ER) | payer MEDICAID, SELFPAY ==
--- NOTE | ~2024-05-05 | XR_ITS ---
EXAMINATION: XR SHOULDER, RIGHT CLINICAL INFORMATION: Fall. Pain. COMPARISON: None available. TECHNIQUE: 3 views of the right shoulder. FINDINGS: The bones and soft tissues are normal. No fracture. Glenohumeral and acromioclavicular alignment is anatomic with normal joint space. No abnormal soft tissue calcifications. XR/XR shoulder RT min 2V IMPRESSION: No significant abnormality identified.
--- NOTE | ~2024-05-05 | XR_ITS ---
EXAMINATION: XR ANKLE, RIGHT CLINICAL INFORMATION: Fall. Ankle pain. COMPARISON: None available. TECHNIQUE: AP, lateral, and mortise views of the right ankle. FINDINGS: The bone mineralization is normal. The joint spaces are maintained. There is no fracture. There is moderate lateral soft tissue swelling. XR/XR ankle RT min 3V IMPRESSION: 1. Moderate lateral soft tissue swelling. 2. No fracture or dislocation.
[2024-05-05 22:38] VITALS: BP 109/87; PULSE 89; RESP 16; TEMP 36.8; O2SAT 97; BMI 28.3
--- NOTE | 2024-05-05 22:54 | ED_ITS ---
HPI - Extremity Injury (Lower) General Chief Complaint: Extremity Injury, Lower Stated Complaint: rt ankle pain/fell down stairs Time Seen by Provider: 05/05/24 22:52 Source: patient Mode of arrival: ambulatory Limitations: no limitations History of Present Illness ED Provider: TRAY WILLIS PA-C HPI Narrative: 34-year-old female with no significant pmhx presents to the ED today for eval uation of right ankle pain/swelling status post mechanical fall down stairs at noon today. Reports rolling her right ankle inward and falling down 2 stairs. Admits to landing on her right shoulder. Denies head strike or LOC. Not on AC. Since this time endorses right ankle pain/swelling along with right shoulder pain. She does admit to history of right rotator cuff tear. Denies numbness, tingling, weakness of the extremities. Denies fever, chills. Denies recent injury or trauma to the LE. No OTC pain meds [employer] in ED. Related Data Previous Rx's ?Medication ?Instructions ?Recorded amoxicillin 500 mg capsule 1,000 mg (2 x 500 mg) PO Q12H 5 09/27/23 days #20 caps doxycycline hyclate 100 mg tablet 100 mg PO Q12H 5 days #10 tabs 09/27/23 Allergies Allergy/AdvReac Type Severity Reaction Status Date / Time atropine [From B-Maryam] Allergy Unknown Verified 05/05/24 22:39 bee pollen Allergy Unknown Verified 05/05/24 22:39 fish derived [fish] Allergy Unknown Verified 05/05/24 22:39 hyoscyamine [From B-Maryam] Allergy Unknown Verified 05/05/24 22:39 latex Allergy Rash Verified 05/05/24 22:39 phenobarbital [From B-Maryam] Allergy Unknown Verified 05/05/24 22:39 risperidone [From Risperdal] Allergy Unknown Verified 05/05/24 22:39 scopolamine [From B-Maryam] Allergy Unknown Verified 05/05/24 22:39 nuts Allergy Unknown Uncoded 05/05/24 22:39 Review of Systems Review of Systems: Constitutional: No fever, chills, fatigue, night sweats, weight changes ENT/Mouth: No ear pain, hearing loss, nasal congestion, sinus pain, rhinorrhea, sore throat Eyes: No eye pain, swelling, redness, vision changes, discharge Cardio: No chest pain, palpitations, THOMPSON, orthopnea, peripheral edema Pulm: No SOB, cough, sputum, wheezing, dyspnea, hemoptysis GI: No nausea, vomiting, hematemesis, abdominal pain, diarrhea, constipation, hematochezia, melena : No irregular bleeding, dysuria, frequency, urgency, hesitancy, hematuria, flank pain, urinary flow changes, urinary incontinence or retention MSK: No back pain, neck pain, joint pain, myalgias, +right ankle pain/swelling, +right shoulder pain Skin: No lesions, rashes Neuro: No weakness, numbness, paresthesias, LOC, dizziness, headache Psych: No anxiety/panic, depression, SI/HI, AH/VH All other systems reviewed and are negative. [facility] Past Medical History Attestation statement: The following information was validated with the patient. Source: old records reviewed and nursing notes reviewed Surgical History Hx of section Social History Social History Unable to assess alcohol history related to: Unknown Smoked in Last 30 Days: No e-Cigarette/Vaping Use: Currently Using Use of substances other than those prescribed or required for medical reasons: No Advance Directives: No Advance Directives Information Provided: No Do you have a plan to hurt others: No Plan Current occupational status: unemployed Current occupation: right hand dominant Physical Exam Vital Signs: Vital Signs: Last Vital Signs Temp 98.3 F 05/06/24 00:55 Pulse 89 05/06/24 00:55 Resp 16 05/06/24 00:55 BP 109/87 05/06/24 00:55 Pulse Ox 97 05/06/24 00:55 O2 Del Method Room Air 05/06/24 00:55 BMI result Body Mass Index 28.3 Vital signs stable Const: General: cooperative, healthy appearing, comfortable and no acute distress Orientation/consciousness: patient oriented x3 Limitations: no limitations HEENT: Head: Yes normal to inspection, Yes normocephalic and Yes atraumatic Eyes: General: appearance normal, both eyes and all related structures Conjunctivae: conjunctivae normal Sclerae: sclerae normal Pupils: Equal, round and reactive pupils present Neck: Neck: Yes normal visual inspection and Yes full ROM Resp: Effort & Inspection: normal respiratory effort Auscultation: clear to auscultation bilaterally Cardio: Rate: regular rate Rhythm: regular rhythm Skin: General skin exam: no rashes or lesions noted Neuro: Other: Strength 5/5 intact throughout.?Sensation intact to light touch.? Neurovascular intact distally.? General: patient oriented x3, gait normal and moves all extremities Cranial nerves: Yes Equal, round and reactive pupils present Extrem: Other: + right ankle with noted swelling to lat eral aspect. No overlying erythema or deformity. Tender to palpation along lateral aspect of right ankle without palpable deformity, crepitus, fluctuance, warmth. ROM to right ankle limited due to swelling/pain. 2+ DP/PT pulse intact. No tenderness over Achilles tendon or plantar fascia. No pitting edema. Ambulating with antalgic gait. + no noted swelling, overlying skin slaughter ges or deformity noted to right shoulder. Decreased ROM noted, specifically on abduction of the shoulder which is her baseline secondary to rotator cuff tear. 2+ radial/ulnar pulse intact. General: Yes normal to inspection Course Course Course Narrative: 0055-- XR right ankle with noted swelling to lateral aspect. no acute fracture. concern for right ankle sprain. patient place in walking boot and crutches provided. xr right shoulder without fracture. discussed all work up results with patient. Patient received Toradol in ED with improvement in pain. advised to follow up with PCP and/or orthopedic doctor. educated on RICE therapy. advised to take tylenol/ motrin at home for pain. Patient has remained stable throughout ED visit today. Discussed worrisome signs and symptoms and when to return to the ED. All questions answered at this time. Patient is agreeable with disposition and stable for discharge. Medications Administered Discontinued Medications Generic Name Dose Route Start Last Admin Trade Name Freq PRN Reason Stop Dose Admin Ketorolac Tromethamine 30 mg 05/05/24 23:24 05/05/24 23:36 Ketorolac Tromethamine 30 Mg/Ml Vial IM 05/05/24 23:25 30 mg ONCE ONE Administration Medical Decision Making Medical Decision Making [facility] Narrative: 34-year-old female with no significant pmhx presents to the ED today for evaluation of right ankle pain/swelling status post mechanical fall down stairs at noon today. Vital signs stable, afebrile. She is nontoxic appearing in no acute distress. Sitting in wheelchair. On exam, right ankle with noted swelling to lateral aspect. No overlying erythema or deformity. Tender to palpation along lateral aspect of right ankle without palpable deformity, crepitus, fluctuance, warmth. ROM to right ankle limited due to swelling/pain. 2+ DP/PT pulse intact. No tenderness over Achilles tendon or plantar fascia. No pitting edema. Ambulating with antalgic gait. no noted swelling, overlying skin changes or deformity noted to right shoulder. Decreased ROM noted, specifically on abduction of the shoulder which is her baseline secondary to rotator cuff tear. 2+ radial/ulnar pulse intact. Strength 5/5 intact throughout.?Sensation intact to light touch.? Neurovascular intact distally.? Differential diagnosis includes fracture, MSK sprain/strain, dislocation, contusion. Unlikely neurovascular compromise, threat to limb, compartment syn drome. Plan for imaging and pain control. Differential Diagnosis Differential Diagnoses: The differential diagnosis associated with the pr esentation includes as above. Admission/Observation Not indicated. Independent Interpretation I performed an independent interpretation of an: Plain X-Ray Interpretation: XR right ankle without fracture, agree with radiologist's interpretation. XR right shoulder without fracture, agree with radiologist's interpretation. Radiology Impression Discussion of test interpretation with radiology: I have reviewed the radiologist's reading. Radiologist Impression: EXAMINATION: XR ANKLE, RIGHT CLINICAL INFORMATION: Fall. Ankle pain. COMPARISON: None available. TECHNIQUE: AP, lateral, and mortise views of the right ankle. FINDINGS: The bone mineralization is normal. The joint spaces are maintained. There is no fracture. There is moderate lateral soft tissue swelling. XR/XR ankle RT min 3V IMPRESSION: 1. Moderate lateral soft tissue swelling. 2. No fracture or dislocation. EXAMINATION: XR SHOULDER, RIGHT CLINICAL INFORMATION: Fall. Pain. COMPARISON: None available. TECHNIQUE: 3 views of the right shoulder. FINDINGS: The bones and soft tissues are normal. No fracture. Glenohumeral and acromioclavicular alignment is anatomic with normal joint space. No abnormal soft tissue calcifications. XR/XR shoulder RT min 2V IMPRESSION: No significant abnormality identified. External Record Review External record reviewed: Inpatient record, Office record, Outpatient record, Prior outpatient labs, Prior outpatient radiology, Primary care record and Outside ED record Prescription Management I considered prescription management with: Pain Medication Social Determinants Patient?s care significantly limited by Social Determinants of Health including: Other Social Determinant of Health Procedures Orthopedic Splinting/Casting Injury #1: Side: right Lower Extremity Injury Location: ankle Lower Extremity Immobilizer: boot orthosis Other Orthopedic Equipment: crutches Critical Care Time Critical Care Time Critical Care Time: No Discharge Plan Discharge Clinical Impression: Right ankle sprain, Muscle strain of right shoulder Patient Disposition: Home, Self-Care Instructions: Crutch Instructions (ED), Sprain (ED), Rotator Cuff Injury (ED), R.I.C.E. Treatment (ED), Walking Boot (ED) Additional Instructions: The xray of your right shoulder does not demonstrate fracture. The xray of your right ankle shows swelling to the outer aspect without acute fracture. You were provided with a walking boot and crutches. You may bear weight on the right foot as tolerated. Please follow up with PCP and/ or orthopedic doctor. You may take Tylenol and ibuprofen as needed at home for pain/discomfort. Return with new or worsening symptoms. In the case of an emergency call 911. Prescriptions: No Action amoxicillin 500 mg capsule 1,000 mg PO Q12H 5 Days Qty: 20 0RF doxycycline hyclate 100 mg tablet 100 mg PO Q12H 5 Days Qty: 10 0RF Referrals: [facility] [place] [facility] [Provider Group] [facility] [place] [facility] [Provider Group] [facility] [place] [facility] [Provider Group] Stand Alone Forms: Work/School Release Interventions: ED Discharge Assessment Last Done: 05/06/24 00:55 Discharge Date/Time: 05/06/24 00:56 Print Language: Mauritanian
[2024-05-05] MEDS: Ketorolac Tromethamine 30 MG/ML VIAL IM (23:36)
[2024-05-06 00:55] VITALS: BP 109/87; PULSE 89; RESP 16; TEMP 36.8; O2SAT 97
== END 2024-05-06 00:56 | disposition home or self-care (01) ==
PROVIDERS: Emergency Provider Emergency Medicine
DX: S93.401A Sprain of unspecified ligament of right ankle, initial encounter (principal); S46.911A Strain of unspecified muscle, fascia and tendon at shoulder and upper arm level, right arm, initial encounter; W10.8XXA Fall (on) (from) other stairs and steps, initial encounter; Y93.9 Activity, unspecified; Y92.9 Unspecified place or not applicable; Y99.9 Unspecified external cause status
CPT/HCPCS: 73030; 73610; 96372; 99284; J1885

== ENCOUNTER 2024-07-24 10:39 | Outpatient (AMB) | payer MEDICAID, SELFPAY ==
[2024-07-24 10:42] VITALS: BMI 28.3
--- NOTE | 2024-07-24 10:42 | MHC.OFFVIS ---
Vital Signs 07/24/24 10:42 Height 5 ft Weight 145 lb BMI 28.3 Intake Visit Reasons: Neck pain, Right shoulder pain Intake Note: Lucy is a 34 year old female who presents with complaints of progressively worsening neck pain which radiates down her right arm to her right hand. The patient states that her symptoms have gotten worse over the last 4 years. The patient states that several years ago she had an MRI of her cervical spine which showed three slipped discs . She has failed the last 6 weeks of conservative treatment which includes a home exercise program, topical creams, Tylenol and anti-inflammatory medicines. She also reports intermittent right shoulder pain. She reports intermittent weakness in her right arm. Allergies atropine [From B-Maryam] Allergy (Verified 07/24/24 10:43) Unknown bee pollen Allergy (Verified 07/24/24 10:43) Unknown fish derived [fish] Allergy (Verified 07/24/24 10:43) Unknown hyoscyamine [From B-Maryam] Allergy (Verified 07/24/24 10:43) Unknown latex Allergy (Verified 07/24/24 10:43) Rash phenobarbital [From B-Maryam] Allergy (Verified 07/24/24 10:43) Unknown risperidone [From Risperdal] Allergy (Verified 07/24/24 10:43) Unknown scopolamine [From B-Maryam] Allergy (Verified 07/24/24 10:43) Unknown nuts Allergy (Uncoded 05/05/24 22:39) Unknown Medication List - Last Reconciled 07/24/24 by Brad Hahn MD amoxicillin 1,000 mg (2 x 500 mg) PO Q12H 5 days doxycycline hyclate 100 mg PO Q12H 5 days PFSH Surgical History Hx of section Social History Unable to assess alcohol history related to: Unknown e-Cigarette/Vaping Use: Currently Using Current occupational status: unemployed Current occupation: right hand dominant Physical Exam Vital Signs: BMI result Body Mass Index 28.3 Neck Other: Cervical spine examination shows positive Spurling's test, right-sided paraspinal muscle tenderness, 4/5 strength with testing of her right biceps and wrist extensors when compared to 5/5 strength on her left side Extrem Other: Right shoulder examination shows slightly decreased range of motion when compared to her left shoulder, 4+ out of 5 strength with supraspinatus testing, positive impingement signs, no instability Assessment & Plan Assessment & Plan (1) Neck pain on right side: Code(s): M54.2 - Cervicalgia Category: Medical (2) Right shoulder pain: Code(s): M25.511 - Pain in right shoulder Category: Medical Plan Ms. Barnett presents with progressively worsening neck pain which radiates into her right arm as well as associated right upper extremity weakness possibly due to cervical stenosis versus a disc herniation. I will send the patient for an MRI of her cervical spine for further evaluation. I will contact her by phone once the MRI results are available. She will call me prior to that time should her symptoms worsen in any way. I spent 20 minutes in reviewing the patient's records and imaging studies, seeing the patient and documenting in the medical record. Orders: Orders MR cervical spine wo con Today M54.2 - Cervicalgia Coding Level of Care Code Est Pt Level 3 (82049) Complex EM visit Add On G2211 Diagnoses Neck pain on right side M54.2 Right shoulder pain M25.511
== END 2024-07-24 11:04 | disposition home or self-care (01) ==
PROVIDERS: Visit Provider Orthopaedic Surgery
DX: M54.2 Cervicalgia (principal); M25.511 Pain in right shoulder
CPT/HCPCS: 99213

== ENCOUNTER → 2024-07-24 10:39 | Outpatient (BNVA) | payer MEDICAID, SELFPAY | PROVIDERS: Visit Provider Orthopaedic Surgery | DX: M54.2 Cervicalgia (principal); M25.511 Pain in right shoulder | CPT/HCPCS: 99212 ==

== ENCOUNTER 2024-08-07 16:42 | Emergency (ER) | payer MEDICAID, SELFPAY ==
--- NOTE | ~2024-08-07 | CT_ITS ---
EXAMINATION: CT CERVICAL SPINE WITHOUT CONTRAST CLINICAL INFORMATION: Trauma. Radicular symptoms. COMPARISON: Cervical spine radiographs from 09/06/2023. TECHNIQUE: Multidetector helical imaging of the cervical spine was obtained without intravenous contrast. Multiple axial reformats and coronal/sagittal reconstructions were created the technologist workstation for review. This CT examination was performed using dose optimization techniques as appropriate, variously including the following: *Automated exposure control. *Adjustment of mA and/or kV according to patient size (this includes techniques or standardized protocols for targeted exams where dose is matched to indication/reason for exam; i.e. extremities or head). *Use of iterative reconstruction technique. DLP: 377 mGy-cm FINDINGS: The atlantooccipital and atlantoaxial articulations remain well aligned. Straightening of the normal cervical lordosis. Otherwise, there is anatomic alignment of the vertebral bodies and posterior elements. No evidence of acute fracture or subluxation. The vertebral body heights are maintained. Mild to moderate degenerative disc disease from C4-C6. There is no prevertebral soft tissue swelling. The thyroid gland and remaining cervical soft tissues are within normal limits. The lung apices demonstrate no abnormalities. CT/CT cervical spine wo IV con IMPRESSION: 1. No evidence of acute fracture or traumatic subluxation of the cervical spine. 2. Mild to moderate multilevel degenerative spondyloarthropathy of the cervical spine. Electronically signed by: José Ty DO 08/07/2024 07:27 PM EDT
[2024-08-07 17:11] VITALS: BP 120/78; PULSE 68; RESP 16; O2SAT 96; BMI 23.2
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
[2024-08-07 17:56] LABS: UPreg QC Valid YES; Urine Pregnancy NEGATIVE (NEGATIVE)
[2024-08-07 20:18] VITALS: BP 116/70; PULSE 66; RESP 16; TEMP 36.6; O2SAT 99
[2024-08-07 20:29] VITALS: BP 116/70; PULSE 66; RESP 16; TEMP 36.6; O2SAT 99
[2024-08-07 20:58] LABS: Amphetamine Screen Urine Not Detected (Not Detect); Barbiturates, Urine Not Detected (Not Detect); Benzodiazepines Screen Urine Not Detected (Not Detect); Buprenorphine Scr Not Detected (Not Detect); Cannabinoid Screen Urine POSITIVE (Not Detect); Cocaine Screen Urine POSITIVE (Not Detect); Fentanyl, urine Not Detected (Not Detect); Methadone Screen, Urine Not Detected (Not Detect); Opiate Screen Urine Not Detected (Not Detect); Oxycodone Screen Urine Not Detected (Not Detect); Phencyclidine Screen Urine Not Detected (Not Detect)
== END 2024-08-07 20:31 | disposition home or self-care (01) ==
PROVIDERS: Physician Assistant Medical; Emergency Provider Emergency Medicine
DX: S13.4XXA Sprain of ligaments of cervical spine, initial encounter (principal); S49.91XA Unspecified injury of right shoulder and upper arm, initial encounter; M25.511 Pain in right shoulder; M54.2 Cervicalgia; Y93.89 Activity, other specified; V43.52XA Car driver injured in collision with other type car in traffic accident, initial encounter; Y92.488 Other paved roadways as the place of occurrence of the external cause; Y99.8 Other external cause status; Z51.81 Encounter for therapeutic drug level monitoring; Z79.899 Other long term (current) drug therapy
CPT/HCPCS: 72125; 80307; 81025; 99283; 99284

== ENCOUNTER → 2024-08-13 08:02 | Outpatient (BNV) | payer MEDICAID, SELFPAY | PROVIDERS: Visit Provider Radiology Diagnostic Radiology | DX: M54.2 Cervicalgia (principal) | CPT/HCPCS: 72141 ==

== ENCOUNTER 2024-08-13 08:03 | Outpatient (REF) | payer MEDICAID, SELFPAY ==
--- NOTE | ~2024-08-13 | MR_ITS ---
EXAMINATION: MR CERVICAL SPINE WITHOUT CONTRAST CLINICAL INFORMATION: Cervicalgia. Bilateral upper extremity pain, weakness and numbness. COMPARISON: No priors. Cervical spine x-ray dated September 06, 2023 is not available on PACS. TECHNIQUE: MRI of the cervical spine was obtained using routine sequences without contrast. FINDINGS: Craniocervical junction is intact. Bone marrow signal is normal. The alignment is normal. The cervical spinal cord signal is normal. C2-3: No compression upon malalignment. No disc herniation. C3-4: Right disc osteophyte complex formation. No cord compression. Right neural foramina narrowing. C4-5: Right-sided disc osteophyte complex formation. No cord compression. No neuroforamina stenosis. C5-6: Left-sided disc osteophyte complex formation resulting in ventral indentation to the spinal cord. No cord compression. No neuroforamina narrowing. C6-7: Broad-based disc osteophyte complex formation. No cord compression. No neuroforamina stenosis. C7-T1: No disc herniation. No cord compression. No neural foramina stenosis. No prevertebral compartment hematoma, mass or fluid collection. Flow-void signal within the main cerebral vessels is normal. Codominant vertebral arteries. MR/MR cervical spine wo con IMPRESSION: Multilevel cervical spondylosis more conspicuous at C4-5 and C5-6 level without cord compression, edema and or myelopathy. Electronically signed by: Alfonzo Jackson MD 08/13/2024 02:01 PM EDT
== END 2024-08-13 08:04 | disposition home or self-care (01) ==
LOC: HO.MRI 08:03
PROVIDERS: Visit Provider Orthopaedic Surgery
DX: M54.2 Cervicalgia (principal)
CPT/HCPCS: 72141

== ENCOUNTER 2024-08-29 10:18 | Outpatient (REF) | payer MEDICAID, SELFPAY ==
--- NOTE | ~2024-08-29 | MR_ITS ---
EXAMINATION: MR LUMBAR SPINE WITHOUT AND WITH CONTRAST CLINICAL INFORMATION: Low back pain COMPARISON: MRI lumbar spine on 03/30/2021 TECHNIQUE: MRI of the lumbar spine was obtained using routine sequences with and without contrast. Intravenous contrast: [Gadavist 6 mL FINDINGS: There are 5 nonrib-bearing lumbar-type vertebrae. Straightening of the normal lumbar lordosis. Trace retrolisthesis at L5-S1. Patchy edema and enhancement involving the L5 inferior endplate anteriorly. No other site of abnormal bone marrow signal. The vertebral body heights are preserved. Disc desiccation at L4/5 and L5-S1 without significant disc height loss. The visualized spinal cord is normal in caliber. No abnormal cord signal or enhancement. The conus medullaris terminates at T12-L1. T12-L1: No significant spinal canal or neural foraminal narrowing. L1-2: No significant spinal canal or neural foraminal narrowing. L2-3: No significant spinal canal or neural foraminal narrowing. L3-4: No significant spinal canal or neural foraminal narrowing. L4-5: Central disc protrusion. No significant spinal canal or neural foraminal narrowing. There is patchy edema and enhancement within the interspinous space at this level. L5-S1: Left foraminal disc protrusion with superimposed annular fissure. No significant spinal canal stenosis. Mild to moderate left neural foraminal narrowing, unchanged. The paravertebral soft tissues are unremarkable. MR/MR lumbar spine wo/w con IMPRESSION: 1. At L4-5, there is patchy edema and enhancement within the interspinous space at this level, nonspecific however can be seen with Baastrup's disease. There is also a central disc protrusion at this level without significant spinal canal stenosis or neural foraminal narrowing. 2. At L5-S1, there is a left foraminal disc protrusion with superimposed annular fissure resulting in unchanged mild to moderate left neural foraminal narrowing. 3. Patchy edema and enhancement involving the L5 inferior endplate anteriorly, likely degenerative. Electronically signed by: Nish Grimm MD 08/29/2024 04:41 PM EST
[2024-08-29] MEDS: gadobutroL 7.5 ML VIAL IVPUSH (10:54)
== END 2024-08-29 10:19 | disposition home or self-care (01) ==
LOC: HO.MRI 10:18
PROVIDERS: Visit Provider Orthopaedic Surgery
DX: M54.50 Low back pain, unspecified (principal); R60.0 Localized edema
CPT/HCPCS: 72158; A9585

== ENCOUNTER 2024-09-10 09:20 | Outpatient (AMB) | payer MEDICAID, SELFPAY ==
--- NOTE | 2024-09-10 09:22 | A.OFFVIS_ITS ---
Vital Signs 09/10/24 09:30 Height 5 ft 4 in Weight 139 lb 2 oz BMI 23.9 BP 148/80 H Blood Pressure Location Lt brachial Position Sitting Respiration 16 Pulse 80 Pulse Source Pulse Oximeter Pulse Oximetry (%) 98 Oxygen Delivery Method Room Air Intake Visit Reasons: Low back pain Intake Note: Patient comes in for initial visit was referred by [facility] orthopedics. Reports pain 05/26. Allergies atropine [From B-Maryam] Allergy (Verified 09/10/24 09:29) Unknown bee pollen Allergy (Verified 09/10/24 09:29) Unknown fish derived [fish] Allergy (Verified 09/10/24 09:29) Unknown hyoscyamine [From B-Maryam] Allergy (Verified 09/10/24 09:29) Unknown latex Allergy (Verified 09/10/24 09:29) Rash phenobarbital [From B-Maryam] Allergy (Verified 09/10/24 09:29) Unknown risperidone [From Risperdal] Allergy (Verified 09/10/24 09:29) Unknown scopolamine [From B-Maryam] Allergy (Verified 09/10/24 09:29) Unknown nuts Allergy (Uncoded 08/07/24 17:11) Unknown HPI Comments Details: Lucy is very pleasant 34 years old female who presents in my office with complains on multiple pain generators: She reports pain in the lower back pain in the central back and pain in between the shoulder blades pain in the left elbow pain across the top portion of her chest in the area of the clavicles pain in the right shoulder and pain in the left foot. She reports that her pain started in 2021 after fall and accident. Because of her pain she can not sleep normally she can not do activities of daily living she can not take care of herself she can not function normally she is full-time student. Last time she was working was 12/06/2021. She reports that currently she lives in the assisted with her daughter. Weather changes in movements aggravate her pain and applications of the heat and cold make her pain slightly better. The pain is severe throughout the day without variation. In terms of tissue damage he reports her pain is pulsing, throbbing, pounding, stabbing, lancinating, pinching, cramping, crushing, sickening, suffocating, spreading, radiating, piercing. She takes 400 mg of gabapentin unfortunately intermittently when her pain is most severe she is using it p.r.n.. She had MRI of the cervical spine and MRI of the lumbar spine results of which are dictated as below. In 2021 she tried physical therapy and received little help from physical therapy. She never received any injections. Past medical history significant for fatigue, hypertension, bipolar disorder, paranoid schizophrenia, she reports no treatment for [place] schizophrenia. She reports history of hepatitis-C she states that she was treated with Harvoni and she is now free of viral loads. She has anemia and asthma. Past surgical history significant for in 2012 and tonsillectomy in 2009. Social history she uses nicotine as a vaping she admits drinking alcohol 1 to 2 times a month, she drinks 2 cups of coffee a day, she admits cannabis and cocaine usage last cocaine was in May. She was in alcohol detox in 2020. [facility] Surgical History Hx of section Social History Unable to assess alcohol history related to: Unknown e-Cigarette/Vaping Use: Currently Using Current occupational status: unemployed Current occupation: right hand dominant Review of Systems ENT Reports Normal hearing present Card Reports no additional complaints Resp Reports as per HPI GI Reports no additional complaints Reports no additional complaints Musc Reports as per HPI Neuro Reports no additional complaints, Reports Normal hearing present, Denies Abnormal speech present, Denies confusion and Denies Sensory deficit (Neuro) Psych Reports as per HPI and Denies confusion Endo Reports no additional complaints Henry/Lymph Reports as per HPI Physical Exam Vital Signs: Last Vital Signs Pulse 80 09/10/24 09:30 Resp 16 09/10/24 09:30 BP 148/80 H 09/10/24 09:30 Pulse Ox 98 09/10/24 09:30 Oxygen Delivery Method Room Air 09/10/24 09:30 BMI result Body Mass Index 23.9 Const General: no acute distress; No confusion Orientation/consciousness: patient oriented x3 and No confusion Eyes General: appearance normal, both eyes and all related structures Pupils: Equal, round and reactive pupils present EOM: EOMs intact bilaterally Neck Neck: Yes full ROM Chest Chest palpation & inspection: normal inspection of the chest Resp Effort & Inspection: normal respiratory effort, able to speak in complete sentences, normal respiratory pattern, no audible wheezes and no cough Cardio Jugular venous distension: no JVD GI Inspection: Yes normal to inspection Back/Spine/Pelvis Other: Ajith test negative bilaterally, SLR is negative bilaterally, patient reports prolonged sitting aggravates her pain. Patient reports flexing forward aggravates her pain. Patient reports activities aggravate her pain in lower back. Neuro General: patient oriented x3, gait normal and No confusion Cranial nerves: Yes CN's II-XII intact bilaterally, Yes Equal, round and reactive pupils present, Yes Normal hearing present and Yes Ability to bilatera lly elevate shoulders present Speech: No Abnormal speech present Gait exam (Neuro): Normal gait present Motor exam (neuro): 5/5 motor strength present throughout Sensory Exam: No Sensory deficit (Neuro) Extrem General: No pedal edema Psych Speech and movement: Normal speech and movement present Affect: normal affect Attitude: cooperative Thought process: Normal thought process present Thought content: Normal thought content present Insight: Good insight present (Psych) Judgement: Good judgement present (Psych) Results Reviewed Results Reviewed: MR LUMBAR SPINE WITHOUT AND WITH CONTRAST CLINICAL INFORMATION: Low back pain COMPARISON: MRI lumbar spine on 03/30/2021 TECHNIQUE: MRI of the lumbar spine was obtained using routine sequences with and without contrast. Intravenous contrast: [Gadavist 6 mL FINDINGS: There are 5 nonrib-bearing lumbar-type vertebrae. Straightening of the normal lumbar lordosis. Trace retrolisthesis at L5-S1. Patchy edema and enhancement involving the L5 inferior endplate anteriorly. No other site of abnormal bone marrow signal. The vertebral body heights are preserved. Disc desiccation at L4/5 and L5-S1 without significant disc height loss. The visualized spinal cord is normal in caliber. No abnormal cord signal or enhancement. The conus medullaris terminates at T12-L1. T12-L1: No significant spinal canal or neural foraminal narrowing. L1-2: No significant spinal canal or neural foraminal narrowing. L2-3: No significant spinal canal or neural foraminal narrowing. L3-4: No significant spinal canal or neural foraminal narrowing. L4-5: Central disc protrusion. No significant spinal canal or neural foraminal narrowing. There is patchy edema and enhancement within the interspinous space at this level. L5-S1: Left foraminal disc protrusion with superimposed annular fissure. No significant spinal canal stenosis. Mild to moderate left neural foraminal narrowing, unchanged. The paravertebral soft tissues are unremarkable. MR/MR lumbar spine wo/w con IMPRESSION: 1. At L4-5, there is patchy edema and enhancement within the interspinous space at this level, nonspecific however can be seen with Baastrup's disease. There is also a central disc protrusion at this level without significant spinal canal stenosis or neural foraminal narrowing. 2. At L5-S1, there is a left foraminal disc protrusion with superimposed annular fissure resulting in unchanged mild to moderate left neural foraminal narrowing. 3. Patchy edema and enhancement involving the L5 inferior endplate anteriorly, likely degenerative. R CERVICAL SPINE WITHOUT CONTRAST CLINICAL INFORMATION: Cervicalgia. Bilateral upper extremity pain, weakness and numbness. COMPARISON: No priors. Cervical spine x-ray dated September 06, 2023 is not available on PACS. TECHNIQUE: MRI of the cervical spine was obtained using routine sequences without contrast. FINDINGS: Craniocervical junction is intact. Bone marrow signal is normal. The alignment is normal. The cervical spinal cord signal is normal. C2-3: No compression upon malalignment. No disc herniation. C3-4: Right disc osteophyte complex formation. No cord compression. Right neural foramina narrowing. C4-5: Right-sided disc osteophyte complex formation. No cord compression. No neuroforamina stenosis. C5-6: Left-sided disc osteophyte complex formation resulting in ventral indentation to the spinal cord. No cord compression. No neuroforamina narrowing. C6-7: Broad-based disc osteophyte complex formation. No cord compression. No neuroforamina stenosis. C7-T1: No disc herniation. No cord compression. No neural foramina stenosis. No prevertebral compartment hematoma, mass or fluid collection. Flow-void signal within the main cerebral vessels is normal. Codominant vertebral arteries. IMPRESSION: Multilevel cervical spondylosis more conspicuous at C4-5 and C5-6 level without cord compression, edema and or myelopathy. Assessment & Plan Assessment & Plan (1) Spondylosis of cervical joint without myelopathy: Code(s): M47.812 - Spondylosis without myelopathy or radiculopathy, cervical region Category: Medical (2) Vertebrogenic low back pain: Code(s): M54.51 - Vertebrogenic low back pain Category: Medical (3) Chronic pain syndrome: Code(s): G89.4 - Chronic pain syndrome Category: Medical Plan The lower back patient pain most likely related to the vertebra genic pain syndrome. She reports prolonged sitting pain aggravation and flexing forward pain aggravation as well as pain aggravated by activities. This corresponds to the findings on the lumbar spine MRI with endplate edema at L5 and S1. I offered this patient to perform L5-S1 intercept procedure, I gave her brochure about intercept to read. If she would agree to go for the procedure I will schedule her accordingly after insurance approval. As of her cervicalgia and pain in the upper thoracic spine most likely it is related to spondylosis she has spondylotic changes at C4, C5, C6 vertebra. I will schedule her in 1 week and we will discuss possibility of treating her neck pain with bilateral diagnostic C4-C5 C6 medial branch block. I will see her next Coding Level of Care Code New Pt Level 3 (91118) Diagnoses Spondylosis of cervical joint without myelopathy M47.812 Vertebrogenic low back pain M54.51 Chronic pain syndrome G89.4
[2024-09-10 09:30] VITALS: BP 148/80; PULSE 80; RESP 16; O2SAT 98; BMI 23.9
== END 2024-09-10 09:59 | disposition home or self-care (01) ==
PROVIDERS: PCP Physician Assistant Medical; Visit Provider Anesthesiology
DX: M47.812 Spondylosis without myelopathy or radiculopathy, cervical region (principal); M54.51 Vertebrogenic low back pain; G89.4 Chronic pain syndrome
CPT/HCPCS: 99203

== ENCOUNTER → 2024-09-10 09:20 | Outpatient (BNVA) | payer MEDICAID, SELFPAY | PROVIDERS: Visit Provider Anesthesiology | DX: M47.812 Spondylosis without myelopathy or radiculopathy, cervical region (principal); M54.51 Vertebrogenic low back pain; G89.4 Chronic pain syndrome; Z59.01 Sheltered homelessness | CPT/HCPCS: 99202 ==

== ENCOUNTER 2024-09-17 14:55 | Outpatient (AMB) | payer MEDICAID, SELFPAY ==
--- NOTE | 2024-09-17 14:59 | A.OFFVIS_ITS ---
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 Accompanied by: Self / Same As Patient Allergies atropine [From B-Maryam] Allergy (Verified 09/17/24 15:03) Unknown bee pollen Allergy (Verified 09/17/24 15:03) Unknown fish derived [fish] Allergy (Verified 09/17/24 15:03) Unknown hyoscyamine [From B-Maryam] Allergy (Verified 09/17/24 15:03) Unknown latex Allergy (Verified 09/17/24 15:03) Rash phenobarbital [From B-Maryam] Allergy (Verified 09/17/24 15:03) Unknown risperidone [From Risperdal] Allergy (Verified 09/17/24 15:03) Unknown scopolamine [From B-Maryam] Allergy (Verified 09/17/24 15:03) Unknown nuts Allergy (Uncoded 08/07/24 17:11) Unknown HPI Comments Details: Lucy is back in my office to discuss possibility of treating her upper back pain and cervicalgia. Most likely she is suffering from spondylosis of the cervical spine and cervical facet arthropathy. The MRI of the cervical and lumbar spine dictated as below. I will schedule her for diagnostic medial branch block C4-C5 C6 bilateral. I will evaluate her after the procedure. As of her lower back pain and treatment with intercept we decided to wait about it and returned to the issue of the intercept when we are done with upper back and neck pain. Prior: complains on multiple pain generators: She reports pain in the lower back pain in the central back and pain in between the shoulder blades pain in the left elbow pain across the top portion of her chest in the area of the clavicles pain in the right shoulder and pain in the left foot. She reports that her pain started in 2021 after fall and accident. She reports that currently she lives in the longterm with her daughter. Weather changes in movements aggravate her pain and applications of the heat and cold make her pain slightly better. The pain is severe throughout the day without variation. In terms of tissue damage he reports her pain is pulsing, throbbing, pounding, stabbing, lancinating, pinching, cramping, crushing, sickening, suffocating, spreading, radiating, piercing. She takes 400 mg of gabapentin unfortunately intermittently when her pain is most severe she is u sing it p.r.n.. She had MRI of the cervical spine and MRI of the lumbar spine results of which are dictated as below. In 2021 she tried physical therapy and received little help from physical therapy. She never received any injections. Past medical history significant for fatigue, hypertension, bipolar disorder, paranoid schizophrenia, she reports no treatment for [place] schizophrenia. She reports history of hepatitis-C she states that she was treated with Harvoni and she is now free of viral loads. She has anemia and asthma. Past surgical history significant for in 2012 and tonsillectomy in 2009. Social history she uses nicotine as a vaping she admits drinking alcohol 1 to 2 times a month, she drinks 2 cups of coffee a day, she admits cannabis and cocaine usage last cocaine was in May. She was in alcohol detox in 2020. [facility] Surgical History Hx of section Social History Unable to assess alcohol history related to: Unknown e-Cigarette/Vaping Use: Currently Using Current occupational status: unemployed Current occupation: right hand dominant Review of Systems Const All systems reviewed & are unremarkable except as noted in HPI and below ENT Reports Normal hearing present Neuro Reports Normal hearing present, Denies Abnormal speech present, Denies confusion and Denies Sensory deficit (Neuro) Psych Denies confusion Physical Exam Vital Signs: Last Vital Signs Pulse 89 09/17/24 15:03 BP 134/74 09/17/24 15:03 Pulse Ox 98 09/17/24 15:03 Oxygen Delivery Method Room Air 09/17/24 15:03 BMI result Body Mass Index 24.4 Const General: no acute distress; No confusion Orientation/consciousness: patient oriented x3 and No confusion Eyes General: appearance normal, both eyes and all related structures Pupils: Equal, round and reactive pupils present EOM: EOMs intact bilaterally Neck Neck: Yes full ROM Chest Chest palpation & inspection: normal inspection of the chest Resp Effort & Inspection: normal respiratory effort, able to speak in complete sentences, normal respiratory pattern, no audible wheezes and no cough Cardio Jugular venous distension: no JVD GI Inspection: Yes normal to inspection Back/Spine/Pelvis Other: Ajith test negative bilaterally, SLR is negative bilaterally, patient reports prolonged sitting aggravates her pain. Patient reports flexing forward aggravates her pain. Patient reports activities aggravate her pain in lower viola k. Neuro General: patient oriented x3, gait normal and No confusion Cranial nerves: Yes CN's II-XII intact bilaterally, Yes Equal, round and reactive pupils present, Yes Normal hearing present and Yes Ability to bilaterally elevate shoulders present Speech: No Abnormal speech present Gait exam (Neuro): Normal gait present Motor exam (neuro): 5/5 motor strength present throughout Sensory Exam: No Sensory deficit (Neuro) Extrem General: No pedal edema Psych Speech and movement: Normal speech and movement present Affect: normal affect Attitude: cooperative Thought process: Normal thought process present Thought content: Normal thought content present Insight: Good insight present (Psych) Judgement: Good judgement present (Psych) Results Reviewed Results Reviewed: MR LUMBAR SPINE WITHOUT AND WITH CONTRAST CLINICAL INFORMATION: Low back pain COMPARISON: MRI lumbar spine on 03/30/2021 TECHNIQUE: MRI of the lumbar spine was obtained using routine sequences with and without contrast. Intravenous contrast: [Gadavist 6 mL FINDINGS: There are 5 nonrib-bearing lumbar-type vertebrae. Straightening of the normal lumbar lordosis. Trace retrolisthesis at L5-S1. Patchy edema and enhancement involving the L5 inferior endplate anteriorly. No other site of abnormal bone marrow signal. The vertebral body heights are preserved. Disc desiccation at L4/5 and L5-S1 without significant disc height loss. The visualized spinal cord is normal in caliber. No abnormal cord signal or enhancement. The conus medullaris terminates at T12-L1. T12-L1: No significant spinal canal or neural foraminal narrowing. L1-2: No significant spinal canal or neural foraminal narrowing. L2-3: No significant spinal canal or neural foraminal narrowing. L3-4: No significant spinal canal or neural foraminal narrowing. L4-5: Central disc protrusion. No significant spinal canal or neural foraminal narrowing. There is patchy edema and enhancement within the interspinous space at this level. L5-S1: Left foraminal disc protrusion with superimposed annular fissure. No significant spinal canal stenosis. Mild to moderate left neural foraminal narrowing, unchanged. The paravertebral soft tissues are unremarkable. MR/MR lumbar spine wo/w con IMPRESSION: 1. At L4-5, there is patchy edema and enhancement within the interspinous space at this level, nonspecific however can be seen with Baastrup's disease. There is also a central disc protrusion at this level without significant spinal canal stenosis or neural foraminal narrowing. 2. At L5-S1, there is a left foraminal disc protrusion with superimposed annular fissure resulting in unchanged mild to moderate left neural foraminal narrowing. 3. Patchy edema and enhancement involving the L5 inferior endplate anteriorly, likely degenerative. R CERVICAL SPINE WITHOUT CONTRAST CLINICAL INFORMATION: Cervicalgia. Bilateral upper extremity pain, weakness and numbness. COMPARISON: No priors. Cervical spine x-ray dated September 06, 2023 is not available on PACS. TECHNIQUE: MRI of the cervical spine was obtained using routine sequences without contrast. FINDINGS: Craniocervical junction is intact. Bone marrow signal is normal. The alignment is normal. The cervical spinal cord signal is normal. C2-3: No compression upon malalignment. No disc herniation. C3-4: Right disc osteophyte complex formation. No cord compression. Right neural foramina narrowing. C4-5: Right-sided disc osteophyte complex formation. No cord compression. No neuroforamina stenosis. C5-6: Left-sided disc osteophyte complex formation resulting in ventral indentation to the spinal cord. No cord compression. No neuroforamina narrowing. C6-7: Broad-based disc osteophyte complex formation. No cord compression. No neuroforamina stenosis. C7-T1: No disc herniation. No cord compression. No neural foramina stenosis. No prevertebral compartment hematoma, mass or fluid collection. Flow-void signal within the main cerebral vessels is normal. Codominant vertebral arteries. IMPRESSION: Multilevel cervical spondylosis more conspicuous at C4-5 and C5-6 level without cord compression, edema and or myelopathy. Assessment & Plan Assessment & Plan (1) Spondylosis of cervical joint without myelopathy: Code(s): M47.812 - Spondylosis without myelopathy or radiculopathy, cervical region Category: Medical (2) Vertebrogenic low back pain: Code(s): M54.51 - Vertebrogenic low back pain Category: Medical (3) Chronic pain syndrome: Code(s): G89.4 - Chronic pain syndrome Category: Medical Plan The lower back patient pain most likely related to the vertebra genic pain syndrome. She reports prolonged sitting pain aggravation and flexing forward pain aggravation as well as pain aggravated by activities. This corresponds to the findings on the lumbar spine MRI with endplate edema at L5 and S1. I offered this patient to perform L5-S1 intercept procedure, I gave her brochure about intercept to read. Today she reported that the pain in the neck is more prominent than the pain in the back. We agreed that we will wait with intercept until we resolve the issue with the cervical spine As of her cervicalgia and pain in the upper thoracic spine most likely it is related to spondylosis she has spondylotic changes at C4, C5, C6 vertebra. I I will schedule her for the diagnostic medial branch block. The decision of further treatment of the cervicalgia will be done later on. She currently lives in longterm with her daughter and it maybe socially more difficult to treat her with [employer] P[facility] however we can offer her to come for dressing change every week in the office. Coding Level of Care Code Est Pt Level 3 (52544) Diagnoses Spondylosis of cervical joint without myelopathy M47.812 Vertebrogenic low back pain M54.51 Chronic pain syndrome G89.4
[2024-09-17 15:03] VITALS: BP 134/74; PULSE 89; O2SAT 98; BMI 24.4
== END 2024-09-17 15:23 | disposition home or self-care (01) ==
PROVIDERS: PCP Physician Assistant Medical; Visit Provider Anesthesiology
DX: M47.812 Spondylosis without myelopathy or radiculopathy, cervical region (principal); M54.51 Vertebrogenic low back pain; G89.4 Chronic pain syndrome
CPT/HCPCS: 99213

== ENCOUNTER → 2024-09-17 14:55 | Outpatient (BNVA) | payer MEDICAID, SELFPAY | PROVIDERS: Visit Provider Anesthesiology | DX: M54.51 Vertebrogenic low back pain (principal); M47.812 Spondylosis without myelopathy or radiculopathy, cervical region; G89.4 Chronic pain syndrome; Z59.01 Sheltered homelessness | CPT/HCPCS: 99212 ==

== ENCOUNTER 2024-11-08 08:17 | Outpatient (AMB) | payer MEDICAID, SELFPAY ==
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
[2024-11-08 08:24] VITALS: BP 125/74; PULSE 73; BMI 25.4
== END 2024-11-08 08:36 | disposition home or self-care (01) ==
PROVIDERS: PCP Physician Assistant Medical; Visit Provider Anesthesiology
DX: M47.812 Spondylosis without myelopathy or radiculopathy, cervical region (principal); M54.51 Vertebrogenic low back pain; G89.4 Chronic pain syndrome; M54.12 Radiculopathy, cervical region; G56.01 Carpal tunnel syndrome, right upper limb
CPT/HCPCS: 99214

== ENCOUNTER → 2024-11-08 08:17 | Outpatient (BNVA) | payer MEDICAID, SELFPAY | PROVIDERS: PCP Physician Assistant Medical; Visit Provider Anesthesiology | DX: M47.22 Other spondylosis with radiculopathy, cervical region (principal); M54.51 Vertebrogenic low back pain; G89.4 Chronic pain syndrome; G56.01 Carpal tunnel syndrome, right upper limb | CPT/HCPCS: 99212 ==

== ENCOUNTER 2024-11-27 06:22 | Outpatient (REF) | payer MEDICAID, SELFPAY ==
--- NOTE | ~2024-11-27 | FL_ITS ---
EXAMINATION: FL GUIDANCE ONLY HISTORY: M47.812 - Spondylosis without myelopathy or radiculopathy, cervical region COMPARISON: None available. TECHNIQUE: Fluoroscopy time: 0.5 minutes. Cumulative Dose: 1.12 mGy. DAP: 0.0195 mGym2 Images: 6. FINDINGS: Images demonstrate needles and contrast material in the neck bilaterally. FL/FL guidance in treatment room IMPRESSION: Fluoroscopy during procedure. Please see procedure report for additional information. Electronically signed by: Hosea Huerta MD 11/27/2024 10:13 AM MAMIE ERIC
--- OUTSIDE RECORDS SUMMARY | 2024-11-27 06:24 | XMS_ITS | Clinical Summary ---
Author Organization [facility] Address [address] [place] [address] Care Team Providers Care Patient Transport Orderly Name Role Phone Jenan Martinez PA-C Primary Care Provider [phone] Source Comments PLEASE NOTE, if this patient is a minor, it may be UNLAWFUL to discuss sensitive information that is contained in these records (such as FAMILY PLANNING, MENTAL HEALTH or SUBSTANCE ABUSE) with the minor patient's parent or other person without the patient's specific authorization.[facility] Allergies Active Allergy Reactions Criticality Noted Date Comments Aripiprazole Anaphylaxis,Hives High 08/06/2014 Bee Sting Anaphylaxis High 06/29/2022 Fish Containing Products Hives 06/30/2024 Latex Hives Medium 05/13/2020 Other Reaction(s): Unknown Other - See Comments 07/28/2020 Peanuts Medium 11/27/2019 Risperidone Anaphylaxis,Hives High 08/06/2014 Medications valACYclovir (VALTREX) 500 mg tablet Take 500 mg by mouth once daily 1 TABLET ORALLY TWICE A DAY FOR 3 DAYS THEN ONCE A DAY. 3 Active naproxen (NAPROSYN) 500 mg tabletIndication s:Acute pain of right shoulder,Lumbosa cral pain TAKE 1 TABLET BY MOUTH TWICE A DAY WITH A MEAL 60 Tablet 3 Active dextromethorphan -guaifenesin (MUCINEX DM) 30-600 mg per 12 hr tabletIndication s:Upper respiratory tract infection, unspecified type Take 1 Tablet by mouth 2 (two) times daily 30 Tablet 3 Active ibuprofen 600 mg tabletIndication s:Upper respiratory tract infection, unspecified type Take 1 Tablet by mouth 3 (three) times daily as needed for pain 30 Tablet 3 Active benzonatate (TESSALON) 100 mg capsuleIndicatio ns:Persistent cough Take 1 Capsule by mouth 3 (three) times daily as needed for cough for up to 7 days 21 Capsule 4 Active budesonide-formo teroL (SYMBICORT) 160-4.5 mcg/actuation inhalerIndicatio ns:Post-viral cough syndrome Inhale 2 Puffs into the lungs 2 (two) times daily for 30 days 6 g 4 Active clotrimazole (LOTRIMIN) 1 % creamIndications :Tinea pedis of both feet Apply topically 2 (two) times daily For 6 weeks. 45 g 4 Active ciclopirox (PENLAC) 8 % solutionIndicati ons:Tinea pedis of both feet,Brittle nails Apply topically nightly at bedtime 6.6 mL 4 Active Active Problems Problem Noted Date Diagnosed Date Spondyloarthropathy 08/12/2024 Overview (08/12/2024): 08/07/2024 - CT spine - Impression: 1) No evidence of acute fracture or traumatic subluxation of the cervical spine. 2) Mild to moderate multilevel degenerative spondyloarthropathy of the cervical spine History of abnormal cervical Pap smear 3 Overview (09/14/2023): - At [facility], ? 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 Assessment & Plan (09/07/2023 10:34 AM EST): - At [facility], ? - Repeat pap collected 09/07/2023 Mental disorder, not otherwise specified 020 Immunizations Name Administration Dates Next Due Flu, Preservative Free 08/18/2023 Family History Medical History Relation Name Comments Breast cancer Maternal Aunt Colon Cancer Maternal Aunt Thyroid Disease Maternal Aunt Thyroid Disease Mother Relation Name Status Comments Maternal Aunt Alive Mother Alive Social History Tobacco Use Types Packs/Day Years Used Date Smoking Tobacco: Never Passive Smoke Exposure: Never Smokeless Tobacco: Never Tobacco Cessation:Counseling Given: Not Answered Alcohol Use Standard Drinks/Week Comments Not Currently 0 (1 standard drink = 0.6 oz pur e alcohol) Social Connections Answer Date Recorded Connectedness 0 06/25/2024 Financial Resource Strain Answer Date R ecorded Financial Resource Strain 0 2022 Stress Answer Date Recorded Stress 0 08/05/2023 Physical Activity Answer Date Recorded Physical Activity 0 08/05/2023 Food Insecurity Answer Date Recorded Food 0 07/12/2024 Transportation Needs Answer Date Record ed Transportation 0 08/05/2023 Housing Stability Answer Date Recorded Housing 0 08/05/2023 Safety and Environment Answer Date Braden rded Safety 0 08/18/2023 Utilities Answer Date Recorded Utilities 0 08/05/2023 Employment Answer Date Recorded Stress 0 08/18/2023 Comments No Sex and Gender Information Value Date Recorded Sex Assigned at Female 07/28/2023 8:28 AM PDT Legal Sex Female 2:08 PM PST Gender Identity Female 07/28/2023 8:28 AM PDT Sexual Orientation Straight 07/28/2023 8: 28 AM PDT Last Filed Vital Signs Vital Sign Reading Time Taken Comments Blood Pressure 133/86 06/30/2024 10:31 AM EDT Pulse 80 06/30/2024 10:31 AM EDT Temperature 37.2 ??C (98.9 ??F) 06/30/2024 1 0:31 AM EDT Respiratory Rate 14 06/30/2024 10:3 1 AM EDT Oxygen Saturation 98% 09/07/2023 9:45 AM EST Inhaled Oxygen Concentration - - Weight 80.2 kg (176 lb 14.4 oz) 10/18/2023 3:32 PM EST Height 152.4 cm (5') 10/18/2023 3:32 PM EST Body Mass Index 34.55 10/18/2023 3:32 PM EST Plan of Treatment Health Maintenance Due Date Last Done Comments HPV Screening 1992 Imm-DTaP/Tdap/Td (1 - Tdap) 01/19/2011 Imm-Hepatitis B (1 of 3 - 19 + 3-dose series) 01/19/2011 [id number] (2 - season) 2024 022 Imm-Influenza (#1) 2024 08/18/2023 Annual Preventive Care Visit 08/18/2024 08/18/2023 Relationship Safety Screening/Counseling 08/18/2024 08/18/2023 Syphilis Screening 08/18/2024 08/18/2023 Alcohol and Drug Screen 10/17/2024 08/18/2023 Depression Annual Screen 10/17/2024 08/18/2023 Hypertension Screening (#1) 06/30/2025 Tobacco Screening 06/30/2025 06/30/2024, 08/18/2023 Lipid Screening 08/18/2026 08/18/2023 Cervical Cancer Screening 09/07/2026 Pap + HPV 09/07/2026 09/07/2023 Pap Smear 09/07/2026 09/07/2023 HIV Screening Completed 08/18/2023, 01/16, 11/28/2020, Additional history exists Hepatitis C Screening Completed 08/19/2023 , 08/18/2023, 08/18/2023 Vaginal Pap Discontinued 09/07/2023 Cervical Ablation/Cold-Knife Conization Discontinued Cervical Cryotherapy Discontinued Colposcopy Discontinued Endometrial Biopsy Discontinued Excision/Leep Discontinued HPV Genotyping Discontinued Vulvoscopy Discontinued Procedures Procedure Name Priority Date/Time Associated Diagnosis Comments THIN PREP IMAGE PAP + HPV RNA E6/E7 W/RFLX HPV 16, 18/45 Routine 09/07/2023 10:36 AM EST History of abnormal cervical Pap smear NFCT AGENT GENOTYPE AUBREY NUCLEIC ACD HEP C VIRUS Routine 08/19/2023 11:16 AM EDT HIV 1/2 AG & AB W/RFLX (4TH GEN) Routine 08/18/2023 2:10 PM EDT Screening due SYPHILIS ANTIBODY CASCADING REFLEX Routine 08/18/2023 2:10 PM EDT Screening due LIPID PANEL Routine 08/18/2023 2:10 PM EDT Screening due from Last 3 Months or Most Recently Relevant to Health Maintenance Results * THIN PREP IMAGE PAP + HPV RNA E6/E7 W/RFLX HPV 16, 18/45 (09/07/2023 10:36 AM EST) CLINICAL INFORMATION See Note [facility] Comment:Routine exam LMP See Note [facility] Comment:[id number] PREV. PAP See Note [facility] Comment:NONE GIVEN PREV. BX See Note [facility] Comment:NONE GIVEN SOURCE See Note [facility] Comment:Cervix STATEMENT OF ADEQUACY See Note [facility] Comment: Satisfactory for evaluation. Endocervical/transformation zone component present. INTERPRETATION/RESU LT See Note [facility] Comment: Cytology Results: Negative for intraepithelial lesion or malignancy. COMMENT See Note [facility] Comment: This Pap test has been evaluated with computer assisted technology. AIRPORT RAMP AGENT See Note [facility] Research [facility] Comment: RXB, CT(ASCP) CT screening location: [address] ??[address] COMMENT [facility] HPV MRNA E6/E7 Not Detected Not Detected [facility] Comment: Methodology: Dispatcher Chief [employer] Slurry-Mediated Amplification This assay detects E6/E7 viral messenger RNA (mRNA) from 14 high-risk HPV types (16,18,31,33,35,39,45,51,52,56,58,59,66,68). Cervical sources are required for HPV testing. If a vaginal source from a patient who has had a total hysterectomy with removal of cervix was submitted, please contact the testing laboratory for alternative testing options. For additional information, please refer to http://education.Skyview Records/faq/UTU018r7 (This link if provided for information/ educational purposes only.) Swab Vaginal structure / Unknown 09/07/2023 10:36 AM EST 09/08/2023 5:13 AM EST Narrative [facility] - 09/13/2023 2:58 PM EST EXPLANATORY NOTE: The Pap is a screening test for cervical cancer. It is not a diagnostic test and is subject to false negative and false positive results. It is most reliable when a satisfactory sample, regularly obtained, is submitted with relevant clinical findings and history, and when the Pap result is evaluated along with historic and current clinical information. us Evelyn Formisano DO LAB - NO BLOOD DRAW Final Resu lt [facility] [address] [place] [address], [facility] [address] [place] [address] * NFCT AGNT GENOTYP NUCLEIC ACID HEPATITIS C VIRUS (08/19/2023 11:16 AM EDT) HEPATITIS C VIRAL RNA GENOTYPE, LIPA Not Detected [facility] [employer] Comment: Genotype not detected due to low or no viral load, mutations in viral genome at assay priming sites, presence of inhibitory substance, or other assay related factors. Viral load of >=300 IU/mL is required for testing. If this patient has a known concurrent viral load >=300 IU/mL, contact client services for verification. ? The method used in this test is RT-PCR and reverse hybridization (Line Probe) of the 5' UTR and core region of the HCV genome. The analytical performance characteristics of this assay have been determined by [facility], [place]. ??The modifications have not been cleared or approved by the FDA. ??This assay has been validated pursuant to the CLIA regulations and is used for clinical purposes. ? For additional information, please refer to http://education.7k7k.com/faq/HCVGenotyping (This link is being provided for informational/ educational purposes only.) ? 08/19/2023 11:1 6 AM EDT 08/19/2023 11:16 AM EDT Jenna Martinez PA-C LAB - BLOOD DRAW Final Resu lt [facility] [address] [place], [place] , [facility] [address] [place], [place] * SYPHILIS ANTIBODY CASCADING REFLEX (08/18/2023 2:10 PM EDT) Pathologist [facility] T. PALLIDUM AB, EIA NEGATIVE NEGATIVE [email or web address] Comment: No antibodies to T. pallidum (the agent causing syphilis) were detected in the specimen. This result, however, does not exclude very recent T. pallidum infection; testing of a second specimen, collected 2-4 weeks after this specimen, is recommended if the index of suspicion for recent infection is high. Blood Blood / Unknown 08/18/2023 2 :10 PM EDT 08/18/2023 2:11 PM EDT Jenna Martinez PA-C LAB - BLOOD DRAW Edited Res ult - Final Performing Organization Address [facility] de Phone Number [facility] [address] [address], [place] [address] [address] * HIV 1/2 AG & AB W/RFLX (4TH GEN) (08/18/2023 2:10 PM EDT) [facility] HIV AG/AB, 4TH GEN NON-REAC TIVE NON-REAC TIVE [facility] Comment: HIV-1 antigen and HIV-1/HIV-2 antibodies were not detected. There is no laboratory evidence of HIV infection. PLEASE NOTE: This information has been disclosed to you from records whose confidentiality may be protected by state law. ??If your state requires such protection, then the state law prohibits you from making any further disclosure of the information without the specific written consent of the person to whom it pertains, or as otherwise permitted by law. A general authorization for the release of medical or other information is NOT sufficient for this purpose. ?? For additional information please refer to http://education.Company.SnackFeed/faq/JYW975 (This link is being provided for informational/ educational purposes only.) The performance of this assay has not been clinically validated in patients less than 2 years old. Blood Blood / Unknown 08/18/2023 2 :10 PM EDT 08/18/2023 2:11 PM EDT us Jenna Martinez PA-C LAB - BLOOD DRAW Final Resu lt Performing Organization Address [facility]/ZIP Co de Phone Number [facility] [address] [address], [place] [address] [address] * (ABNORMAL) LIPID PANEL (08/18/2023 2:10 PM EDT) CHOLESTEROL, TOTAL 237(H) <200 mg/dL [facility] HDL CHOLESTEROL 54 > OR = 50 mg/dL [facility] TRIGLYCERIDES 118 <150 mg/dL [facility] LDL-CHOLESTEROL 159(H) 99 mg/dL (calc) [facility] Comment: Reference range: <100 Desirable range <100 mg/dL for primary prevention; ?? <70 mg/dL for patients with CHD or diabetic patients with > or = 2 CHD risk factors. LDL-C is now calculated using the Angelo calculation, which is a validated novel method providing better accuracy than the Friedewald equation in the estimation of LDL-C. Dong SS et al. ELISABETH. 2013;310(19): 1895-1774 (http://education.7k7k.com/faq/SPU874) CHOL/HDLC RATIO 4.4 <5.0 (calc) [facility] NON-HDL CHOLESTEROL 183(H) <130 mg/dL (calc) [facility] Comment: For patients with diabetes plus 1 major ASCVD risk factor, treating to a non-HDL-C goal of <100 mg/dL (LDL-C of <70 mg/dL) is considered a therapeutic option. Blood Blood / Unknown 08/18/2023 2 :10 PM EDT 08/18/2023 2:11 PM EDT Jenna Martinez PA-C LAB - BLOOD DRAW Final Resu lt [facility] [address] [address], [facility] [address] [place] [address] from Last 3 Months or Most Recently Relevant to Health Maintenance Insurance [employer] Care Teams Patient Transport Orderly Relationship Specialty Start Date End Date Jenna Martinez PA-C [facility] [place] [address] PCP - General Primary Care 08/17/23
--- OUTSIDE RECORDS SUMMARY | 2024-11-27 06:24 | XMS_ITS | Clinical Summary ---
Author Organization [facility] Address [address] [place] [address] Care Team Providers Care Newspaper Columnist Name Role Phone Unavailable Primary Care Provider Unavailabl e Allergies Active Allergy Reactions Criticality Noted Date Comments Fish Allergy 07/28/2020 Latex 05/13/2020 Peanut Oil 05/13/2020 Medications Medication Sig Dispensed Refills Start Date End Date Status clonazePAM (KlonoPIN) 0.5 MG tablet Take 0.5 mg by mouth 3 (three) times a day as needed. 0 05/29/2020 Active gabapentin (NEURONTIN) 800 MG tablet Take 800 mg by mouth 3 (three) times a day. 0 06/08/2020 Active buPROPion (WELLBUTRIN XL) 300 MG 24 hr tablet Take 300 mg by mouth daily. 0 05/21/2020 Active cyclobenzaprine (FLEXERIL) 10 MG tablet Take 1 tablet (10 mg total) by mouth 3 (three) times a day as needed for muscle spasms. 30 tablet 0 05/24/2023 Active Active Problems No known active problems Social History Tobacco Use Types Packs/Day Years Used Date Smoking Tobacco: Never Assessed Alcohol Use Standard Drinks/Week Comments No 0 (1 standard drink = 0.6 oz pur e alcohol) Sex and Gender Information Value Date Recorded Sex Assigned at Female 07/28/2020 9:59 PM EDT Gender Identity Not on file Sexual Orientation Not on file Job Start Date Occupation Industry Not on file Not on file Not on file Last Filed Vital Signs Vital Sign Reading Time Taken Comments Blood Pressure 125/77 05/24/2023 6:59 AM EDT Pulse 74 05/24/2023 6:59 AM EDT Temperature 36.7 ??C (98.1 ??F) 05/24/2023 6:59 AM ED T Respiratory Rate 22 05/24/2023 6:59 AM EDT Oxygen Saturation 100% 05/24/2023 6:59 AM EDT Inhaled Oxygen Concentration - - Weight 68 kg (150 lb) 07/28/2020 9:35 PM EDT Height - - Body Mass Index - - Plan of Treatment Health Maintenance Due Date Last Done Comments Hepatitis B Vaccines (1 of 3 - 3-dose series) 1992 Hepatitis C Screening 1992 Depression Screening 2004 Preventative Health Evaluation 01/19/2010 DTap / Tdap / Td (1 - Tdap) 01/19/2011 Cervical Cancer Screening (Pap Smear) 01/19/2013 COVID-19 Vaccine (2023-2 5 season) 2024 07/28/2022, 10/07/2021, 03/19/2021 Influenza Vaccine (#1) 2024 0, 08/08/2019 Pneumococcal Vaccine Aged Out No long er eligible based on patient's age to complete this topic RSV Ped < 20 months Aged Out No longe r eligible based on patient's age to complete this topic
--- OUTSIDE RECORDS SUMMARY | 2024-11-27 06:24 | XMS_ITS | Encounter Summary ---
Author Organization [facility] Address [address] [place] [address] Care Team Providers Care Crew Foreman Name Role Phone Pcp, Agatha SULLIVAN Primary Care Provider Unavailabl e Leobardo Diez MD Unavailable [phone] Braeden Gunter MD Unavailable [phone] Rekha Buck MD Unavailable [phone] Diann Tom RN Unavailable Unavailable Ramya Fowler RN Unavailable Mel Betts MD Unavailable Maria Victoria Glass Primary Care Provider [phone] Encounter Details Date Type Department Care Team (Late st Contact Info) Description 05/20/2021 Orders Only [facility] Department of Women's Health Outpatient [place] [address] [id number] Braeden Gunter MD [address] [facility] [address] Social History Tobacco Use Types Packs/Day Years Used Date Smoking Tobacco: Every Day Cigarettes Smokeless Tobacco: Never Alcohol Use Standard Drinks/Week Comments Not Currently 0 (1 standard drink = 0.6 oz pur e alcohol) Humiliation, Afraid, Rape, and Kick questionnair e Answer Date Recorded Within the last year, have y ou been afraid of your partner or ex-partner? No 05/13/2020 Within the last year, have y ou been humiliated or emotionally abused in other ways by your partner or ex-partner? No Within the last year, have y ou been kicked, hit, slapped, or otherwise physically hurt by your partner or ex-partner? No 05/13/2020 Within the last year, have y ou been raped or forced to have any kind of sexual activity by your partner or ex-partner? No 05/13/2020 AUDIT-C Answer Date Recorded Q1: How often do you have a drink containing alc ohol? Monthly or less 05/13/2020 Average Number of Drinks Not on file 020 Frequency of Binge Drinking Not on file 04/17 PHQ-2 Answer Date Recorded PHQ-2 Score 4 05/13/2020 Comments Unknown Sex and Gender Information Value Date Recorded Sex Assigned at Not on file Legal Sex Female 4:52 AM EST Gender Identity Not on file Sexual Orientation Not on file COVID-19 Exposure Response Date Recorded In the last month, have you been in contact with someone who was confirmed or suspected to have Coronavirus / COVID-19? No / Unsure 05/21/2021 3:13 PM EDT documented as of this encounter Plan of Treatment Not on file documented as of this encounter Visit Diagnoses Not on filedocumented in this encounter Additional Health Concerns Assessment Noted Time PHQ-9 Depression Total Score: 4 05/13/20 20 1:58 PM EDT documented as of this encounter Care Teams Crew Foreman Relationship Specialty Start Date End Date Agatha Oliva MD [address] [place] [address] PCP - General Internal Medicine 12/24/19 02/22/23 Maria Victoria Glass [address] [place] [address] [place] [address] PCP - General Family Medicine 02/23/23 Leobardo Diez MD [address] [place] [address] Consulting Physician Obstetrics and Gynecology 05/20/21 Braeden Gunter MD [address] [place] [address] [address] Obstetrics and Gynecology 05/20/21 Rekha Buck MD [address] [place], [place] [address] [address] Bar Assistant Obstetrics and Gynecology 06/02/21 Diann Tom, ENRIQUE [address] [place] [address] Registered Nurse Nursing 07/21/21 Ramya Fowler RN [facility] [address] [place], [place] [id number] Registered Nurse Obstetrics and Gynecology 10/22/21 Mel Betts MD [address] [place] [address] [place] [address] Consulting Physician Obstetrics and Gynecology 05/17/22 documented as of this encounter
--- OUTSIDE RECORDS SUMMARY | 2024-11-27 06:24 | XMS_ITS | Encounter Summary ---
Author Organization Formerly [facility] Address [address] [place] [address] Care Team Providers Care Upholstery Bundler Name Role Phone Pcp, No Primary Care Provider Unavailabl Renea Rg MANAGER IN HOME Unavailable [phone] Dontrell Foley MD Unavailable Christal Emanuel DESK INTERVIEWER Primary Care Provider [phone] Stevenson Ac CM Unavailable Abran Howard MD Unavailable [phone] Lenard Ferraro Unavailable [phone] Kesha Dawson WASTE MACHINE OPERATOR Unavailable Cassandra Santos FACULTY PHYSICIAN Unavailable Pcp, No Primary Care Provider Unavailabl e Asuncion Whyte Unavailable Rhonda Edmondson Unavailable Miesha Elam EQUINE PHARMACOLOGY TECHNICIAN Unavailable [phone] Laisha Jones MANAGER IN HOME Unavailable Chato Carroll WASTE MACHINE OPERATOR Unavailable Lisseth Avendano EQUINE PHARMACOLOGY TECHNICIAN Unavailable Kacy Pedro BS Unavailable [phone] Rivka Metzger MATERIAL HANDLER LOADER Unavailable Lilliana Connolly FACULTY PHYSICIAN Unavailable Maria Luz Dai Unavailable Yamini Hauser APRN Unavailable [phone] Reason for Visit * Auth/Cert Specialty Diagnoses / Procedures Referred By Contbridgett t Referred To Contact Diagnoses Alcohol dependence (HCC) Alcohol Use Disorder Procedures na Referral ID Status Reason Start Date Expiration Date Visits Re quested Visits Authorized [id number] 1 1 Encounter Details Date Type Department Care Team ([facility] Contact Info) Description 02/24/2021 Lab Requisition [id number] [address] [address] Mp Roman MD [address] [place] [address] Encounter for laboratory testing for COVID-19 virus Social History Tobacco Use Types Packs/Day Years Used Date Smoking Tobacco: Every Day E-Cigarettes Smokeless Tobacco: Never Alcohol Use Standard Drinks/Week Comments Not Currently 0 (1 standard drink = 0.6 oz pur e alcohol) Sex and Gender Information Value Date Recorded Sex Assigned at Female 10/25/2022 9:27 AM EST Gender Identity Female 02/24/2021 3:49 PM EDT Sexual Orientation Bisexual 02/24/2021 3: 49 PM EDT COVID-19 Exposure Response Date Recorded In the last month, have you been in contact with someone who was confirmed or suspected to have Coronavirus / COVID-19? No / Unsure 02/25/2021 4:55 PM EDT documented as of this encounter Plan of Treatment Not on file documented as of this encounter Procedures Procedure Name Priority Date/Time Associated Diagnosis Comments COVID-19 RT-PCR (DOMINIC DUMONT) Routine 02/24/2021 1:49 PM EDT Encounter for laboratory testing for COVID-19 virus [ICD-10-CM] documented in this encounter Results * COVID-19 RT-PCR (Dominic Dumont) (02/24/2021 1:49 PM EDT) COVID-19 RT-PCR SARS-CoV-2 Not Detected Not Detected 02/24/2021 11:34 PM EDT [facility] Comment: ADDITIONAL INFORMATION The YOLANDA COVID-19 RT-PCR Assay is Real-Time Reverse Business Proposal Rep Polymerase Chain Reaction (day habilitation supervisor-PCR) for the in vitro qualitative detection of three SARS-Cov-2 target sequences unique to the coronavirus disease 2019 (COVID-19). This is an Emergency Use Authorization (EUA) in vitro diagnostic (IVD) test that has been modified to include the Energatix Studio automated liquid handler. Its analytical performance characteristics have been determined by the amusement ride inspector and verified by [facility] in a manner consistent with CLIA requirements. This test may be used for clinical purposes and should not be regarded as purely investigational or for research use only. This laboratory is certified under the Clinical Laboratory Improvement Amendments of 1988 (CLIA-88) as qualified to perform high complexity clinical testing. Reference interval for this testing is SARS-CoV-2 Not Detected . Fact sheets for this Emergency Use Authorization assay can be found at the following links: For Healthcare Providers: https://www.fda.gov/media/163724/download For Patients: https://www.fda.gov/media/338517/download TEST INTERPRETATION Data analysis and interpretation is performed using the eMar COVID-19 Interpretive Software. SARS-CoV-2 Not Detected: negative for SARS-CoV-2, recommend testing for other viruses if clinically indicated. Positive SARS-CoV-2: positive for SARS-CoV-2. SARS-CoV-2 Inconclusive: the test results were inconclusive two consecutive times from separate nucleic acid extractions. Additional testing should be performed if clinically indicated. Failed: testing failed two consecutive times from separate nucleic acid extractions. Additional specimen should be collected and submitted for testing. The cycle threshold (Ct) value for each COVID target is included for positive specimens. As per the [employer] COVID-19 Combo Kit EUA documentation, each COVID target with a Ct value of <=37 is called Detected . Please note: The YOLANDA COVID-19 RT-PCR Assay is a qualitative test, and as such the Ct value is interpreted as positive or negative but cannot be used to determine how much virus is present in an individual patient specimen. Ct values should not be used to determine a patient's viral load, how infectious a person may be, or when a person can be released from isolation or quarantine. For more information please refer to: https://www.cdc.gov/coronavirus/2019-ncov/lab/faqs.html#Rdnoadtukdwa-Sayazdc-to- Diagn ostic-Tests TEST LIMITATIONS Positive results are indicative of the presence of SARS-CoV-2 RNA; clinical correlation with patient history and other diagnostic information is necessary to determine patient infection status. Positive results do not rule out bacterial infection or co-infection with other viruses. The agent detected may not be the definite cause of disease. Negative results do not exclude SARS-CoV-2 infection and should not be used as the sole basis for patient management decisions. Negative results must be combined with clinical observations, patient history, and epidemiological information. Improper sample collection, transport or storage may impede the ability of the assay to detect target sequences. Inconclusive specimens are not repeated, and recollection and submission of a new sample is recommended. The TaqPath COVID-19 test is for the qualitative detection of nucleic acid from SARS-CoV-2 in upper respiratory specimens (such as nasopharyngeal, oropharyngeal, nasal, and mid-turbinate swabs, and nasopharyngeal aspirate), bronchoalveolar lavage (BAL) and saliva specimens from individuals suspected of COVID-19 by their healthcare provider. The limit of detection for the assay was determined to be 250 viral RNA copies/mL for nasal swabs and 500 viral RNA copies/mL for saliva specimens. Other specimen types may be needed for further validation before testing on this system. For further details refer to the [employer] COVID-19 Combo Kit EUA submission (https://www.fda.gov/media/808077/download). ----- Test performed by [facility], [address] [place] [address] CLIA# [id number] ? Kenneth Collins M.D., Ph.D., [facility] Clinical Bereavement Counselor Microbiology Nasopharyngeal swab / Unknown 02/24/2021 1:49 PM EDT 02/24/2021 1:49 PM EDT Narrative DOMINIC MOYA - 02/24/2021 11:34 PM EDT Performed at [facility], [address] [place] [address], [place], [place], [place] Lic 0695, CLIA [id number] Mp Roman MD MICROBIOLOGY - GENE RAL ORDERABLES [facility] [address] [place] [address] documented in this encounter Visit Diagnoses Diagnosis Encounter for laboratory testing for COVID-19 virus documented in this encounter Care Teams Upholstery Bundler Relationship Specialty Start Date End Date Pcp, No PCP - General General Medicine 07/01/20 02/24/21 Christal Emanuel FNP [address] [place] [address] PCP - General Family Medicine 02/25/21 06/10/22 Pcp, No PCP - General General Medicine 06/11/22 Renea Ho LPC [address] [place] [address] Clinician Social Work 02/18/21 Dontrell Foley MD [address] [place] [address] Psychiatry, General 02/19/21 Stevenson Ac CM [address] [place] [address] Clinician Social Work 02/26/21 Abran Howard MD [address] [place] [address] Psychiatry, General 03/09/21 Lenard Ferraro [address] [place] [address] Clinician Social Work 03/10/21 Kesha Dawson LCSW [address] [place] [address] [phone] Technical Clerk Clinical Social Work 04/08/21 Cassandra Santos APRN [address] [place] [address] [phone] Nurse Practitioner Psychiatry, General 11/16/21 Asuncion Whyte [address] [place] [address] 333600 Clinician Social Work 06/13/22 Rhonda Edmondson [address] [place] [address] [phone] Clinician Social Work 06/16/22 Miesha Elam, [facility] [address] [place] [address] [phone] Clinician Social Work 06/17/22 Laisha Jones LPC [address] [place] [address] Clinician Clinical Social Work 06/17/22 Chato Carroll LCSW [address] [place] [address] Technical Clerk Clinical Social Work 06/21/22 Lisseth Avendano, [address] [phone] Clinician Social Work 06/23/22 Kacy Pedro BS [address] [place] [address] Clinician Social Work 06/28/22 Rivka Metzger LPN [address] [phone] Licensed Practical Nurse 07/01/22 Lilliana Connolly APRN [address] [place] [address] Nurse Practitioner Psychiatry, General 07/14/22 Maria Luz Dai [address] [place], [place] [phone] Clinician Social Work 08/28/22 Yamini Hauser APRN [address] [place] [address] Nurse Practitioner Psychiatry, Geriatric 10/25/22 documented as of this encounter
--- OUTSIDE RECORDS SUMMARY | 2024-11-27 06:24 | XMS_ITS | Clinical Summary ---
Author Organization [facility] Address [address] [place] [address] Care Team Providers Care Retail Selling Floor Leader Name Role Phone Renea Ho CERTIFIED NOVELL ADMINISTRATOR Unavailable [phone] Dontrell Foley MD Unavailable [phone] Stevenson Ac CM Unavailable Abran Howard MD Unavailable [phone] Lenard Ferraro Unavailable [phone] Kesha Dawson AIRLINE RESERVATIONIST Unavailable Cassandra Santos RETAIL KEY HOLDER Unavailable Pcp, No Primary Care Provider Unavailabl e Asuncion Whyte Unavailable Rhonda Edmondson Unavailable Miesha Elam PIG MACHINE OPERATOR Unavailable [phone] Laisha Jones CERTIFIED NOVELL ADMINISTRATOR Unavailable [phone] Chato Carroll AIRLINE RESERVATIONIST Unavailable Lisseth Avendano PIG MACHINE OPERATOR Unavailable Kacy Pedro BS Unavailable [phone] Rivka Metzger TALENT DIRECTOR Unavailable Lilliana Connolly RETAIL KEY HOLDER Unavailable Maria Luz Dai Unavailable Yamini Hauser RETAIL KEY HOLDER Unavailable [phone] Allergies Active Allergy Reactions Criticality Noted Date Comments Aripiprazole Anaphylaxis High 05/17/2019 Bee Venom Anaphylaxis High 05/17/2019 Fish-Derived Products Hives Medium 05/17/2019 Honey Bee Venom Anaphylaxis High 06/29/2022 Latex Hives Medium 05/13/2020 Peanuts Hives Medium 05/17/2019 Risperidone Anaphylaxis High 05/17/2019 Medications Medication Sig Dispensed Refills Start Date End Date Status hydrOXYzine HCl (ATARAX) 50 MG tablet Take 1 tablet (50 mg total) by mouth nightly. Active venlafaxine (EFFEXOR-XR) 75 MG 24 hr capsule Take 1 capsule (75 mg total) by mouth daily. Active lisdexamfetamine (VYVANSE) 30 MG capsule Take 1 capsule (30 mg total) by mouth every morning. Max Daily Amount: 30 mg Active ondansetron (ZOFRAN-ODT) 4 MG disintegrating tablet Take 1 tablet (4 mg total) by mouth 3 times daily (every 8 hours) as needed for nausea or vomiting. Place tablet on tongue to dissolve. 10 tablet 03/11/2023 Active dicyclomine (BENTYL) 10 MG capsule Take 1-2 capsules (10-20 mg total) by mouth 4 times daily (every 6 hours) as needed for cramping. 12 capsule 03/11/2023 Active Active Problems Problem Noted Date Diagnosed Date Alcohol abuse 02/12/2023 Depression 01/21/2022 Alcohol withdrawal 02/25/2021 Safety Plan 02/24/2021 Overview (02/24/2021): Images from the original note were not included. [facility] [address] [facility] [address] JOSÉ PATO RES MDTWN [address] [place] [address] MY SAFETY PLAN Name: Lucy Barnett Date: 02/24/2021 MR#: [id number] The one thing that is most important to me and worth living for is: Get clean and get back on Vivitrol. Step 1 - Warning Signs [thoughts, images, mood, situation, behavior] that a crisis may be developin. Anxiety 2. PTSD 3. Depression Step 2 - Coping strategies: things I can do to take my mind off of my problems without contacting others [relaxation technique; physical exercise] 1. Listen to music 2. 3. Step 3 - People and social settings that provide distraction 1. Name: Mother 2. Name: Phone: 3. Place: 4. Place: Step 4 - People whom I can ask for help: 1. Name: Mother 2. Name: Phone: 3. Name: Phone: Step 5 - Professionals or agencies I can contact during a crisis 1. Name: Scooter Crump 2. Name: [facility] 3. Name: Sewta Philippe Additional Resources: [place] infoline 211, Suicide Prevention Lifeline 7-923-169-HCVA (8698), Text Hello to 814270, 654 Step 6 - Making the environment safe/access to guns: No This tool has been adapted from the [employer] Safety Plan [facility] Form 014541 R10-18 Pg 1 of 1 Post traumatic stress disorder (PTSD) 02/24/2021 Generalized anxiety disorder 02/24/2021 OCD (obsessive compulsive disorder) 02/24/2021 Major depressive disorder, recurrent episode, mo derate 02/24/2021 Arthritis 02/23/2021 Alcohol use disorder, severe, dependence 021 Cocaine use, unspecified, in remission Alcohol dependence 02/23/2021 Moderate depressed bipolar I disorder 02/18/2021 Bipolar I disorder, most recent episode depresse d 02/18/2021 Bipolar disorder, current episode depressed, mod erate 02/18/2021 Chronic tonsillitis 08/06/2014 Immunizations Name Administration Dates Next Due Covid-19 mRNA Bivalent Vacci ne - Pfizer 30 mcg/0.3mL 12+ 07/28/2022 Family History Medical History Relation Name Comments Anxiety disorder Mother Depression Mother Relation Name Status Comments Mother Social History Tobacco Use Types Packs/Day Years Used Date Smoking Tobacco: Every Day Cigarettes E-Cigarettes Smokeless Tobacco: Never Alcohol Use Standard Drinks/Week Comments Yes 3 (1 standard drink = 0.6 oz pur e alcohol) AUDIT-C Answer Date Recorded Q1: How often do you have a drink containing alcohol? 4 or more times a week 02/12/2023 Q2: How many drinks containi ng alcohol do you have on a typical day when you are drinking? 7 to 9 Q3: How often do you have si x or more drinks on one occasion? Daily or almost daily 02/12/2023 PHQ-2 Answer Date Recorded PHQ-2 Total Score 2 11/03/2022 Sex and Gender Information Value Date Recorded Sex Assigned at Female 10/25/2022 9:27 AM EST Gender Identity Female 02/24/2021 3:49 PM EDT Sexual Orientation Bisexual 02/24/2021 3: 49 PM EDT Last Filed Vital Signs Vital Sign Reading Time Taken Comments Blood Pressure 128/84 03/11/2023 5:26 PM EDT Pulse 64 03/11/2023 5:26 PM EDT Temperature 36.6 ??C (97.8 ??F) 03/11/2023 5:26 PM ED T Respiratory Rate 18 03/11/2023 5:26 PM EDT Oxygen Saturation 99% 03/11/2023 5:26 PM EDT Inhaled Oxygen Concentration - - Weight 69.4 kg (153 lb) 03/11/2023 3:13 PM EDT Height 152.4 cm (5') 02/12/2023 8:41 AM EDT Body Mass Index 29.88 02/12/2023 8:41 AM EDT Plan of Treatment Health Maintenance Due Date Last Done Comments DTaP/Tdap/Td Vaccines (1 - Tdap) 01/19/2011 Hepatitis B Vaccines (1 of 3 - 19+ 3-dose series) 01/19/2011 Pneumococcal Vaccine: Pediatric (0-5 Years) and At-Risk Patients (6 to 49 Years) (1 of 2 - PCV) 01/19/2011 Pap Smear (Ages 21-65) 01/19/2013 Influenza Vaccine 05/17/2024 10/06/2021, 08/08/2019 COVID-19 Vaccine ( - 2023-2 5 season) 2024 07/28/2022, 10/07/2021, 03/19/2021 HIV Screening Completed 02/12/2023, 11/28/2020 Hepatitis C Virus Screening Completed 01/16, 05/31/2019, 05/15/2019 HPV Vaccines Aged Out No longer eligi ble based on patient's age to complete this topic Procedures Procedure Name Priority Date/Time Associated Diagnosis Comments HIV 1/2 AG/AB CMIA REFLEX TO CONFIRMATION STAT 02/12/2023 9:21 AM EDT from Last 3 Months or Most Recently Relevant to Health Maintenance Results * HIV 1/2 Ag/Ab CMIA Reflex to Confirmation (02/12/2023 9:21 AM EDT) HIV 1/2 Ag/Ab CMIA Nonreactive Nonreactive 02/14/2023 10:10 AM EDT [facility] Comment: Results show no evidence of infection by HIV 1/2. If clinically indicated, repeat CMIA or test by nucleic acid amplification. HIV 1/2 Antigen/Antibody CMIA reflex to confirmation AND HIV-1 RNA viral load recommended in patients who are taking or have recently taken PrEP. Blood specimen (specimen) Serum specimen / Unknown 02/12/2023 9:21 AM EDT 02/12/2023 9:31 AM EDT Lillie Hamlin RETAIL KEY HOLDER LAB BLOOD ORDERABLES HOSPITAL LAB See Below [facility] [address] [place] [address] from Last 3 Months or Most Recently Relevant to Health Maintenance Advance Directives * Full Code (Latest Code Status on File) Date Activated Date Inactivated Comments 02/12/2023 11:52 AM 03/11/2023 3:07 PM * Full Code Date Activated Date Inactivated Comments 02/25/2021 9:49 PM 03/15/2021 3:21 PM Care Teams Retail Selling Floor Leader Relationship Specialty Start Date End Date Pcp, No PCP - General General Medicine 06/11/22 Renea Ho CERTIFIED NOVELL ADMINISTRATOR [address] [place] [address] Clinician Social Work 02/18/21 Dontrell Foley MD [address] [place] [address] Psychiatry, General 02/19/21 Stevenson Ac CM [address] [place] [address] Clinician Social Work 02/26/21 Abran Howard MD [address] [place] [address] Psychiatry, General 03/09/21 Lenard Ferraro [address] [place] [address] Clinician Social Work 03/10/21 Kesha Dawson LCSW [address] [place] [address] Hydrotel Operator Clinical Social Work 04/08/21 Cassandra Santos APRN [address] [place] [address] Nurse Practitioner Psychiatry, [facility] 11/16/21 Asuncion Whyte [address] [place] [address] Clinician Social Work 06/13/22 Rhonda Edmondson [address] [place] [address] Clinician Social Work 06/16/22 Miesha Elam, [facility] [address] [place] [address] Clinician Social Work 06/17/22 Laisha Jones LPC [address] [place] [address] Clinician Clinical Social Work 06/17/22 Chato Carroll LCSW [address] [place] [address] [phone] Hydrotel Operator Clinical Social Work 06/21/22 Lisseth Avendano, [address] [address] Clinician Social Work 06/23/22 Kacy Pedro BS [address] [place] [address] 732320 Clinician Social Work 06/28/22 Rivka Metzger LPN [address] [place] [address] [phone] Licensed Practical Nurse 07/01/22 Lilliana Connolly APRN [address] [place], [place] [phone] Nurse Practitioner Psychiatry, General 07/14/22 Maria Luz Dai [address] [place], [place] [phone] Clinician Social Work 08/28/22 Yamini Hauser APRN [address] [place], [place] [phone] Nurse Practitioner Psychiatry, Geriatric 10/25/22
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
--- OUTSIDE RECORDS SUMMARY | 2024-11-27 06:25 | XMS_ITS | Continuity of Care Document ---
Author Organization [facility] Address [address] [place] [id number] Phone Care Team Providers Care Coat Fitter Name Role Phone Maria Victoria Glass APRN Unavailable Unavailabl e Allergies, Adverse Reactions, Alerts Substance Reaction Status Criticality latex Active No Information bee venom protein (honey bee) Anaphylaxis Active No Information Fish Containing Products Active No Information peanut Active No Information risperidone Active No Information aripiprazole Active No Information Medications Medication Instructions Dosage Effective Dates (start - stop) Status Comments EpiPen 2-Ken 0.3 mg/0.3 mL injection, auto-injector inject 0.3 milliliter by intramuscular route once as needed for anaphylaxis 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 [address] [place] [address], [id number], [place]. tel:[phone] [facility], [address] [place] [address], [id number], tel:[phone] [facility] Care Bris 10 NMS back pain (chief complaint)Thyr oid problems (chief complaint) Body mass index (BMI) 32.0-32.9, adultDietary counseling and surveillanceBack painFatigue 3 Minihan Maria Victoria. [address] [place] [address], [id number], [place]. tel:[phone] [facility], [address] [place] [address], [id number], [place] tel:[phone] OP A Bris 225 NMS Mar-2 3 Agudelo Jocelyne . [address] [place] [address], [id number], [place]. tel:[phone] [facility], [address] [place] [address], [address], [place] tel:[phone] OP A Bris 225 NMS Mar- 3 Sammi Ayanna. [address] [place] [address], [id number], [place]. tel:[phone] [facility], [address] [place] [address], [address], [place] tel:[phone] OP A Bris 10 NMS Mar-0 3 [place] Ayanna. [address] [place] [address], [id number], [place]. tel:[phone] [facility], [address] [place] [address], [address], [place] tel:[phone] [facility] [address] [place] [address] 3 Griffith Serrita. [address] [place] [address], [id number], [place]. tel:[phone] [facility], [address] [place] [address], [address], [place] tel:[phone] [facility] [address] [place] [address] 3 Capel Riri. [address] [place] [address], [id number], [place]. tel:[phone] [facility], [address] [place] [address], [address], [place] tel:[phone] OP A Bris 10 NMS 3 Ponce Lanie. [address] [place] [address], [id number], [place]. tel:[phone] [facility], [address] [place] [address], [address], [place] tel:[phone] [facility] Bris 10 NMS MAT (*Medication Assisted [place]) (chief complaint) 0 5-202 3 Minihan Maria Victoria. [address] [place] [address], [id number], [place]. tel:[phone] [facility], [address] [place] [address], [address], [place] tel:[phone] [facility] [address] May-0 4-202 3 Capel Riri. [address] [place] [address], [id number], [place]. tel:[phone] [facility], [address] [place] [address], [address], [place] tel:[phone] [facility] [address] [place] [address] February-0 3-202 3 Capel Riri. [address] [place] [address], [id number], [place]. tel:[phone] [facility], [address] [place] [address], [address], [place] tel:[phone] OP A Bris 10 NMS February-0 2-202 3 Ponce Lanie. [address] [place] [address], [id number], [place]. tel:[phone] [facility], [address] [place] [address], [address], [place] tel:[phone] [facility] 10 NMS MAT (*Medication Assisted [place]) (chief complaint)Anxi ety (chief complaint) Dietary counseling and surveillanceBody mass index (BMI) 29.0-29.9, adult February-0 2-202 3 Minihan Maria Victoria. [address] [place] [address], [id number], [place]. tel:[phone] [facility], [address] [place] [address], [address], [place] tel:[phone] [facility] 10 NMS No Information February-0 1-202 3 Minihan Maria Victoria. [address] [place] [address], [id number], [place]. tel:[phone] [facility], [address] [place] [address], [address], tel:[phone] [facility] Bris 10 NMS HOSP F/U (chief complaint) Hepatitis CBody mass index (BMI) 19.9 or less, adultPain in right shoulderDietary counseling and surveillanceExercise counseling 2 Quan Irene. [address] [place] [address], [id number], [place]. tel:[phone] [facility], [address] [place] [address], [address], [place] tel:[phone] [facility] Htfd [address] [place] Right shoulder pain (chief complaint)Naus ea/vomiting (chief complaint) Body mass index (BMI) 26.0-26.9, adultPain in right shoulderNausea with vomiting, unspecifiedDietary counseling and surveillanceExercise counseling 2 Danuta Ely. [address] [place] [address], [id number], [place]. tel:[phone] [facility], [address] [place] [address], [address], [place] tel:[phone] [facility] [address] Discuss test results (chief complaint) Body mass index (BMI) 27.0-27.9, adultHepatitis CHypercholesterolemiaDiet cierra counseling and surveillanceExercise counseling 2 [place]on[place]arthur Reid. [address] [place] [address], [id number], [place]. tel:[phone] [facility], [address] [place] [address], [address], [place] tel:[phone] [facility] [address] [place] [address] Body mass index (BMI) 27.0-27.9, adult 2 Shireen Reid. [address] [place] [address], [id number], [place]. tel:[phone] [facility], [address] [place] [address], [address], [place] tel:[phone] [facility] NBrit 40 [place] No Information 1 Adelfo Siegel. [address] [place] [address], [id number], [place]. tel:[phone] [facility], [address] [place] [address], [address], [place] tel:[phone] [facility] NBrit 40 [place] physical (chief complaint) Body mass index (BMI) 27.0-27.9, adultEncounter for immunizationEncntr for general adult medical exam w/o abnormal findings 1 Adelfo Siegel. [address] [place] [address], [id number], [place]. tel:[phone] [facility], [address] [place] [address], [address], [place] tel:[phone] [facility] Bris 10 NMS Encounter for immunization 1 Erika Sneed. [address] [place] [address], [address] [place] [address], [place]. tel:[phone] [facility], [address] [place] [address], [facility], [place] tel:[phone] [facility] Bris 10 NMS Medication (chief complaint)MAT (*Medication Assisted [place]) (chief complaint) No Information 1 Adelfo Siegel. [address] [place] [address], [id number], [place]. tel:[phone] [facility], [address] [place] [address], [facility], [place] tel:[phone] [facility] Care Bris 10 NMS MAT (*Medication Assisted [place]) (chief complaint)er follow up (chief complaint) Body mass index (BMI) 25.0-25.9, adultEncounter for screening for other disorderDietary counseling and surveillanceExercise counseling 1 Adelfo Siegel. [address] [place] [address], [id number], [place]. tel:[phone] [facility], [address] [place] [address], 0[address], [place] tel:[phone] [facility] Bris 10 NMS relapse (chief complaint) 1 Adelfo Siegel. [address] [place] [address], [id number], [place]. tel:[phone] [facility], [address] [place] [address], [address], [place] tel:[phone] OP A LL Plnv [address] 1 Kirby Case. [address] [place] [address], [id number], [place]. tel:[phone] [employer] [facility], [address] [place] [address], [facility], [place] tel:[phone] Medication Management (chief complaint)Psyc hiatric (chief complaint) 1 Kris Salinas. [address] [place] [address], [id number], [place]. tel:[phone] [facility], [address] [place] [address], [facility], tel:[phone] OP A LL Plnv D 1 Kirby Barrowsa. [address] [place] [address], [address] [place] [address], [place]. tel:[phone] [facility], [address] [place] [address], [facility], [place] tel:[phone] [facility] Bris 10 NMS MAT (*Medication Assisted [place]) (chief complaint) Body mass index (BMI) 27.0-27.9, adultEncounter for screening for other disorderDietary counseling and surveillanceExercise counseling Dec- 1 Adelfo Siegel. [address] [place] [address], [id number], [place]. tel:[phone] [facility], [address] [place] [address], [facility], [place] tel:[phone] [facility] Care NBrit 75 NMR establishment of care (chief complaint)anxi ety (chief complaint)medi cation management (chief complaint)othe r (chief complaint) Body mass index (BMI) 27.0-27.9, adultSpontaneous abortionDietary counseling and surveillanceExercise counselingEncounter for screening for other disorder Dec-2 1 Adelfo Siegel. [address] [place] [address], [id number], [place]. tel:[phone] [employer] [facility], [address] [place] [address], [address], [place] tel:[phone] OP A LL Plnv 91 [address] Dec-2 3 1 Kirby Evie. [address] [place] [address], [id number], [place]. tel:[phone] Rosen [facility], [address] [place] [address], [address], [place] tel:[phone] Dec-1 5 1 [place] Evie. [address] [place] [address], [id number], [place]. tel:[phone] Rosen [facility], [address] [place] [address], [address], [place] tel:[phone] OP A LL Plnv NWD Medication Management (chief complaint)Psyc hiatric (chief complaint) Dec-0 8- 1 Kris Salinas. [address] [place] [address], [id number], [place]. tel:[phone] [employer] [facility], [address] [place] [address], [address], [place] tel:[phone] OP A LL Plnv NWD Dec-0 1 Kirby Evie. [address] [place] [address], [id number], [place]. tel:[phone] Rosen [facility], [address] [place] [address], [address], [place] tel:[phone] [facility] Wtbry [address] MAT (*Medication Assisted [place]) (chief complaint) Body mass index (BMI) 25.0-25.9, adultDietary counseling and surveillanceExercise counseling Dec-0 3- 1 Shireen Reid. [address] [place] [address], [id number], [place]. tel:[phone] [employer] [facility], [address] [place] [address], [address], [place] tel:[phone] Medication Management (chief complaint)Psyc hiatric (chief complaint) 1 Kris Chonga. [address] [place] [address], [id number], [place]. tel:[phone] [facility], [address] [place] [address], [address]67, tel:[phone] OP A Plnv [address] 1 [place] Evie. [address] [place] [address], [id number], [place]. tel:[phone] [facility], [address] [place] [address], [address]28, [place] tel:[phone] [facility] [address] Medication Management (chief complaint)Psyc hiatric (chief complaint) 1 Kris Chonga. [address] [place] [address], [id number], [place]. tel:[phone] [facility], [address] [place] [address], [facility], tel:[phone] [address] Medication Management (chief complaint)Psyc hiatric (chief complaint) 1 Kris Chonga. [address] [place] [address], [id number], [place]. tel:[phone] [facility], [address] [place] [address], [address], [place] tel:[phone] [address] Medication Management (chief complaint)Psyc hiatric (chief complaint) 0 Ponce Rita. [address] [place] [address], [id number], [place]. tel:[phone] [facility], [address] [place] [address], [address], [place] tel:[phone] [facility] [address] 0 Kirby Evie. [address] [place] [address], [id number], [place]. tel:[phone] [facility], [address] [place] [address], [address], [place] tel:[phone] OP A Plnv [facility] 7 0 Hsu Reza. [address] [place] [address], [id number], [place]. tel:[phone] [employer] [facility], [address] [place] [address], [facility], tel:[phone] OP A LL Plnv [facility] 0 [place] Evie. [address] [place] [address], [id number], [place]. tel:[phone] [facility], [address] [place] [address], [facility], tel:[phone] OP A Plnv [facility] 0 Kirby Evie. [address] [place] [address], [id number], [place]. tel:[phone] [employer] [facility], [address] [place] [address], [facility], tel:[phone] OP A Plnv [facility] 0 Hsu Reza. [address] [place] [address], [id number], [place]. tel:[phone] [facility], [address] [place] [address], [facility], tel:[phone] OP A Plnv [facility] 0 0 Rene Jorge. [address] [place] [address], [address] [place] [address], [place]. tel:[phone] [facility], [address] [place] [address], [facility], [place] tel:[phone] OP A Plnv [facility] 0 López Ania. [address] [place] [address], [id number], [place]. tel:[phone] [facility], [address] [place] [address], [facility], tel:[phone] [facility] [address] MAT (*Medication Assisted [place]) (chief complaint) 0 Niall Sauer. [address] [place] [address], [id number], [place]. tel:[phone] [employer] [facility], [address] [place] [address], [address]67[address], [place] tel:[phone] OP A Plnv [address] [place] [address] 6202 0 Kris Salinas. [address] [place] [address], [id number], [place]. tel:[phone] [employer] [facility], [address] [place] [address], 07234, [place] tel:[phone] [facility] Care Wtb[facility] [address] MAT (*Medication Assisted [place]) (chief complaint) Hepatitis CBody mass index (BMI) 25.0-25.9, adultEncntr screen exam for other mental hlth and behavrl disord 3- 0 Niall Sauer. [address] [place] [address], [id number], [place]. tel:[phone] [facility], [address] [place] [address], [facility], [place] tel:[phone] OP A Plnv [facility] 2202 0 Kristenkadeem Ramirez. [address] [place] [address], [id number], [place]. tel:[phone] [employer] [facility], [address] [place] [address], [facility], [place] tel:[phone] OP A Bris 225 NMS Dec-1 2-202 0 Broderick Diann. [address] [place] [address], [id number], [place]. tel:[phone] [facility], [address] [place] [address], [address]398, [place] tel:[phone] OP A Bris 225 NMS Mar-1 2-202 0 [place] Diann. [address] [place] [address], [id number], [place]. tel:[phone] [employer] [facility], [address] [place] [address], [facility], [place] tel:[phone] OP A Bris 225 NMS Mar-0 5-202 0 Asif Boswell. [address] [place] [address], [address] [place] [address], [place]. tel:[phone] [facility], [address] [place] [address], [facility], tel:[phone] OP A Bris 225 NMS Feb-2 0-202 0 Asif Andreia. [address] [place] [address], [address] [place] [address], . tel:[phone] [employer] [facility], [address] [place] [address], [facility], tel:[phone] OP A Bris 225 NMS Feb-1 3-202 0 Asif Andreia. [address] [place] [address], [id number], [place]. tel:[phone] [employer] [facility], [address] [place] [address], [facility], tel:[phone] OP A Bris 225 NMS b- 1-202 0 Asif Andreia. [address] [place] [address], [address] [place] [address], . tel:[phone] As per patient privacy policy some of the clinical information may not be visible. Family History Family Member Type Diagnosis Age At Onset Sister Problem anxiety state Brother Problem anxiety state Brother Problem depression Sister Problem depression Mother Problem depression Mother Problem anxiety state Immunizations Vaccine Date Status Comments PFIZER SARS-COV-2 (12+) administered Sour ce: New Immunization Record FLUCELVAX QUAD administered Source: New I mmunization Record Td (adult), adsorbed administered Source: Other Registry PFIZER SARS-COV-2 (COVID-19) administered Source: New Immunization Record Flu MDCK Quad P-Free Inj administered Donna rce: Other Registry Influenza Quad Inj P administered Source: Other Registry Hep A, ped/adol, 2D administered Source: Other Registry H1N1 Flu 09-P Free administered Source: O ther Registry Payers Payer name Insurance type Covered democrat ID Authoriza tion(s) Kitty Charles [id number] Kitty Charles [id number] Kitty Charles [id number] Kitty Charles [id number] State Probation [facility] [id number] Social History Type Description Quantity Date Captured Comments Alcohol Use Details Unknown Caffeine Use Details Unknown Tobacco Use Status No Information Smoking Status No Information Sex Female Sexual Orientation Bisexual Gender Identity Female Chief Complaint And Reason For Visit No Information Plan Of Treatment Date Type Action Status Goal Tdap. Due on due Goal Td vaccine. Due on due Goal Pap/HPV testing. Due on due Goal Hepatitis C scre ening. Due on due Goal Depression scree demario. Due on due Goal Influenza vaccine. Due on due Goal HPV. Due on due Goal Health Literacy Assessment. Due on due Goal Unhealthy drug u se screening. Due on due Goal Influenza vaccine. Due on due Goal Unhealthy drug u se screening. Due on due Goal Td vaccine. Due on due Goal Health Literacy Assessment. Due on due Goal Hepatitis C scre ening. Due on due Goal Pap/HPV testing. Due on due Goal HPV. Due on due Goal Tdap. Due on due Goal Depression scree demario. Due on due Goal Tobacco cessation counseling completed Goal Lifestyle education regardin g diet completed Goal Td vaccine. Due on due Goal Hepatitis C scre ening. Due on due Goal Depression scree demario. Due on due Goal Influenza vaccine. Due on due Goal Tdap. Due on due Goal HPV. Due on due Goal Health Literacy Assessment. Due on due Goal Pap/HPV testing. Due on due Goal Unhealthy drug u se screening. Due on due Goal Depression scree demario. Due on due Goal Influenza vaccine. Due on due Goal HPV. Due on due Goal Tdap. Due on due Goal Unhealthy drug u se screening. Due on due Goal Health Literacy Assessment. Due on due Goal Hepatitis C scre ening. Due on due Goal Pap/HPV testing. Due on due Goal Td vaccine. Due on due Goal Influenza vaccine. Due on due Goal Td vaccine. Due on due Goal Unhealthy drug u se screening. Due on due Goal Tdap. Due on due Goal HPV. Due on due Goal Hepatitis C scre ening. Due on due Goal Depression scree demario. Due on due Goal Pap/HPV testing. Due on due Goal Health Literacy Assessment. Due on due Goal Hepatitis C scre ening. Due on due Goal HPV. Due on due Goal Influenza vaccine. Due on due Goal Depression scree demario. Due on due Goal Unhealthy drug u se screening. Due on due Goal Health Literacy Assessment. Due on due Goal Td vaccine. Due on due Goal Tdap. Due on due Goal Pap/HPV testing. Due on due Goal Pap/HPV testing. Due on due Goal Influenza vaccine. Due on due Goal HPV. Due on due Goal Td vaccine. Due on due Goal Health Literacy Assessment. Due on due Goal Hepatitis C scre ening. Due on due Goal Unhealthy drug u se screening. Due on due Goal Tdap. Due on due Goal Depression scree demario. Due on due Goal Td vaccine. Due on due Goal Unhealthy drug u se screening. Due on due Goal Hepatitis C scre ening. Due on due Goal Health Literacy Assessment. Due on due Goal Depression scree demario. Due on due Goal Tdap. Due on due Goal Pap/HPV testing. Due on due Goal HPV. Due on due Goal Influenza vaccine. Due on due Goal Health Literacy Assessment. Due on due Goal Tdap. Due on due Goal Td vaccine. Due on due Goal Influenza vaccine. Due on due Goal Pap/HPV testing. Due on due Goal Hepatitis C scre ening. Due on due Goal Depression scree demario. Due on due Goal HPV. Due on due Goal Unhealthy drug u se screening. Due on due Goal Depression scree demario. Due on due Goal Td vaccine. Due on due Goal Influenza vaccine. Due on due Goal Tdap. Due on due Goal Unhealthy drug u se screening. Due on due Goal Health Literacy Assessment. Due on due Goal Hepatitis C scre ening. Due on due Goal Pap/HPV testing. Due on due Goal HPV. Due on due Goal Td vaccine. Due on due Goal Unhealthy drug u se screening. Due on due Goal Influenza vaccine. Due on due Goal Health Literacy Assessment. Due on due Goal Tdap. Due on due Goal Pap/HPV testing. Due on due Goal Hepatitis C scre ening. Due on due Goal HPV. Due on due Goal Depression scree demario. Due on due Goal Influenza vaccine. Due on due Goal Pap/HPV testing. Due on due Goal Depression scree demario. Due on due Goal Tdap. Due on due Goal Unhealthy drug u se screening. Due on due Goal Td vaccine. Due on due Goal Hepatitis C scre ening. Due on due Goal Health Literacy Assessment. Due on due Goal HPV. Due on due Goal Depression scree demario. Due on due Goal Td vaccine. Due on due Goal Unhealthy drug u se screening. Due on due Goal Hepatitis C scre ening. Due on due Goal Influenza vaccine. Due on due Goal Health Literacy Assessment. Due on due Goal Tdap. Due on due Goal Pap/HPV testing. Due on due Goal HPV. Due on due Goal Lifestyle education regardin g diet completed Goal Health Literacy Assessment. Due on due Goal Depression scree demario. Due on due Goal Unhealthy drug u se screening. Due on due Goal Hepatitis C scre ening. Due on due Goal Td vaccine. Due on due Goal HPV. Due on due Goal Tdap. Due on due Goal Influenza vaccine. Due on Oc due Goal Pap/HPV testing. Due on due Goal Tobacco cessation counseling completed Goal Lifestyle education regardin g diet completed Goal Pap/HPV testing. Due on due Goal Influenza vaccine. Due on Se due Goal Hepatitis C scre ening. Due on due Goal Health Literacy Assessment. Due on due Goal Unhealthy drug u se screening. Due on due Goal Depression scree demario. Due on due Goal Td vaccine. Due on due Goal HIV 1/0/2 Ag/Ab w/Rflx. Due on due Goal HPV. Due on due Goal Tdap. Due on due Goal Tobacco cessation counseling completed Goal Lifestyle education regardin g diet completed Goal Tdap. Due on due Goal Depression scree demario. Due on due Goal Td vaccine. Due on due Goal HIV 1/0/2 Ag/Ab w/Rflx. Due on due Goal Influenza vaccine. Due on due Goal Health Literacy Assessment. Due on due Goal PAP. Due on due Goal Tobacco cessation counseling completed Goal Dietary manageme nt education, guidance, and counseling completed Goal PAP. Due on due Goal Health Literacy Assessment. Due on due Goal Influenza vaccine. Due on due Goal HIV 1/0/2 Ag/Ab w/Rflx. Due on due Goal Depression scree demario. Due on due Goal Tdap. Due on due Goal Td vaccine. Due on due Goal Tobacco cessation counseling completed Goal Dietary manageme nt education, guidance, and counseling completed Goal Influenza vaccine. Due on due Goal Health Literacy Assessment. Due on due Goal HIV 1/0/2 Ag/Ab w/Rflx. Due on due Goal Depression scree demario. Due on due Goal PAP. Due on due Goal Td vaccine. Due on due Goal Tdap. Due on due Goal Lifestyle education regardin g diet completed Goal PAP. Due on due Goal Depression scree demario. Due on due Goal Influenza vaccine. Due on due Goal Td vaccine. Due on due Goal Tdap. Due on due Goal Health Literacy Assessment. Due on due Goal HIV 1/0/2 Ag/Ab w/Rflx. Due on due Goal Influenza vaccine. Due on due Goal Tdap. Due on due Goal PAP. Due on due Goal HIV 1/0/2 Ag/Ab w/Rflx. Due on due Goal Health Literacy Assessment. Due on due Goal Td vaccine. Due on due Goal Depression scree demario. Due on due Goal Td vaccine. Due on due Goal HIV 1/0/2 Ag/Ab w/Rflx. Due on due Goal Influenza vaccine. Due on due Goal Tdap. Due on due Goal Health Literacy Assessment. Due on due Goal PAP. Due on due Goal Depression scree demario. Due on due Goal Lifestyle education regardin g diet completed Goal Td vaccine. Due on due Goal Health Literacy Assessment. Due on due Goal Tdap. Due on due Goal HIV 1/0/2 Ag/Ab w/Rflx. Due on due Goal PAP. Due on due Goal Influenza vaccine. Due on Dc due Goal Depression scree demario. Due on due Goal Tdap. Due on due Goal Health Literacy Assessment. Due on due Goal Influenza vaccine. Due on due Goal PAP. Due on due Goal HIV 1/0/2 Ag/Ab w/Rflx. Due on due Goal Depression scree demario. Due on due Goal Td vaccine. Due on due Goal Depression scree demario. Due on due Goal Health Literacy Assessment. Due on due Goal PAP. Due on due Goal HIV 1/0/2 Ag/Ab w/Rflx. Due on due Goal Influenza vaccine. Due on due Goal Td vaccine. Due on due Goal Tdap. Due on due Goal HIV 1/0/2 Ag/Ab w/Rflx. Due on due Goal Depression scree demario. Due on due Goal Td vaccine. Due on due Goal Health Literacy Assessment. Due on due Goal PAP. Due on due Goal Tdap. Due on due Goal Influenza vaccine. Due on due Goal PAP. Due on due Goal Td vaccine. Due on due Goal Influenza vaccine. Due on due Goal Tdap. Due on due Goal Health Literacy Assessment. Due on due Goal HIV 1/0/2 Ag/Ab w/Rflx. Due on due Goal Depression scree demario. Due on due Goal Lifestyle education regardin g diet completed Goal Td vaccine. Due on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 your female relatives have thyroid issues. Please have your labs completed today and then schedule a two-week f/u to review with me in person Related to Fatigue You report having an abnormal MRI completed @ [facility] this weekend. Please sign a MAYA so that we can obtain results of this scan. Please call their records department and request a copy of the disc as you will need this should we end up referring you to a specialist.You decline a chiro or PT eval today. Related to Back pain Lifestyle education regarding di et Related to Body mass index [BMI] 32.0-32.9, adult Giving encouragement to exercise Related to Body mass index [BMI] 29.0-29.9, adult Lifestyle education regarding di et Related to Body mass index [BMI] 29.0-29.9, adult rtc as needed Take m edications as directedMoist heat for 20-30 minutes, gentle stretching and ice 20-30 minutes--repeat 4-5 times a day.RTC if symptoms do not improve Related to Pain in right shoulder Lifestyle education regarding di et Related to Body mass index [BMI] 19.9 or less, adult rtc as needed Take m edications as directedMoist heat for 20-30 minutes, gentle stretching and ice 20-30 minutes--repeat 4-5 times a day.RTC if symptoms do not improve Related to Pain in right shoulder Giving encouragement to exercise Related to Body mass index [BMI] 26.0-26.9, adult Lifestyle education regarding di et Related to Body mass index [BMI] 26.0-26.9, adult Your cholesterol was elevated today. Try to decrease fatty and processed foods. Eat more fruits and veggies, start to exercise and drink more water.Follow up in 3 months with fasting labs the week before Related to Hypercholesterolemia Your Viral RNA is st ill pending. We will call you when we have the results. If it is positive, I will have you start treatment. Related to Hepatitis C Giving encouragement to exercise Related to Body mass index [BMI] 27.0-27.9, adult Dietary management e ducation, guidance, and counseling Related to Body mass index [BMI] 27.0-27.9, adult Giving encouragement to exercise Related to Body mass index [BMI] 27.0-27.9, adult Dietary management e ducation, guidance, and counseling Related to Body mass index [BMI] 27.0-27.9, adult You received vaccine s today. The arm where you received the injection may be a bit sore to touch for the next 24-hours. Please return to the clinic if you develop a fever greater than 101 or any other concerning signs or symptoms.You may wish to take some Tylenol tonight (read directions on the bottle) as you may run a slight fever and overall be more irritable and uncomfortable because of the immunizations. You can also schedule a follow-up visit with a nurse personal carer who can help ensure your vaccines are up to date. Our nurses can work with you under my supervision for the next 6 months or so to help get other chronic illnesses under control. The plan for today's visit was discussed with you today and you verbalized an understanding and were in agreement of this plan. Related to Encounter for immunization You had a physical e xam today and appear to be healthy. Try incorporating exercise into your daily routine and eat more fruits and veggies. You were given a lab slip to have your labs drawn. Please to a [facility] location at your convenience. If possible, please fast (nothing to eat or drink after midnight) the night before you have your labs drawn. Related to Encntr for general adult medical exam w/o abnormal findings Giving encouragement to exercise Related to Body mass index [BMI] 27.0-27.9, adult Lifestyle education regarding di et Related to Body mass index [BMI] 27.0-27.9, adult Giving encouragement to exercise Related to Body mass index [BMI] 25.0-25.9, adult Lifestyle education regarding di et Related to Body mass index [BMI] 25.0-25.9, adult Giving encouragement to exercise Related to Body mass index [BMI] 27.0-27.9, adult Lifestyle education regarding di et Related to Body mass index [BMI] 27.0-27.9, adult Giving encouragement to exercise Related to Body mass index [BMI] 27.0-27.9, adult Lifestyle education regarding di et Related to Body mass index [BMI] 27.0-27.9, adult Continue LatudaContinue Topamax Related to Bipolar disorder, unspecified Giving encouragement to exercise Related to Body mass index [BMI] 25.0-25.9, adult Lifestyle education regarding di et Related to Body mass index [BMI] 25.0-25.9, adult All meds on hold at present time. Pt encouraged to reconnect with therapist for further support. Related to Bipolar disorder, unspecified Continue Latuda Cont inue TopamaxNaltrexone to be refilled today as well. . Related to Bipolar disorder, unspecified You report unstable mood with episodes of depression but primarily agitation and anger with prominent impulsivity. You are making poor choices such as drug use as you do not feel you can manage your mood without assistance of medication. Plan: Start Latuda 40mg daily. Related to Bipolar disorder, unspecified Giving encouragement to exercise Related to Body mass index (BMI) 25.0-25.9, adult Dietary management e ducation, guidance, and counseling Related to Body mass index (BMI) 25.0-25.9, adult As per patient privacy policy some of the clinical information may not be visible. Assessments Type Assessment Date No Information
--- OUTSIDE RECORDS SUMMARY | 2024-11-27 06:25 | XMS_ITS | Clinical Summary ---
Author Organization [facility] ity Address [address] [place] [address] Care Team Providers Care Stars Coordinator Name Role Phone Unavailable Primary Care Provider Unavailabl e Medical History Medical History Date Comments Depression DX:Depression Miscarriage DX:Miscarriage Social History Tobacco Use Types Packs/Day Years Used Date Smoking Tobacco: Never Assessed Alcohol Use Standard Drinks/Week Comments No 0 (1 standard drink = 0.6 oz pur e alcohol) Comments Unknown Sex and Gender Information Value Date Recorded Sex Assigned at Not on file Legal Sex Female 3:33 PM EST Gender Identity Not on file Sexual Orientation Not on file Obstetrics History Plan of Treatment Health Maintenance Due Date Last Done Comments DTaP,Tdap,and Td Vaccines (1 - Tdap) 01/19/2011 Hepatitis B Vaccines (1 of 3 - 19+ 3-dose series) 01/19/2011 Cervical Cancer Screening: P ap Smear 01/19/2013 Depression Screening 11/20/2023 HIV Screening 11/20/2023 Hepatitis C Screening 11/20/2023 Social Influencers of Health Screening 11/20/2023 COVID-19 Vaccine ( - 2023-2 5 season) 2024 Influenza Vaccine (#1) 2024 HIB Vaccines Aged Out No longer eligi ble based on patient's age to complete this topic HPV Vaccines Aged Out No longer eligi ble based on patient's age to complete this topic Hepatitis A Vaccines Aged Out No long er eligible based on patient's age to complete this topic IPV Vaccines Aged Out No longer eligi ble based on patient's age to complete this topic MMR Vaccines Aged Out No longer eligi ble based on patient's age to complete this topic Meningococcal ACWY Vaccine Aged Out N o longer eligible based on patient's age to complete this topic Pneumococcal Vaccine: Pediat rics (0 to 5 Years) and At-Risk Patients (6 to 64 Years) Aged Out No longer eligible b ased on patient's age to complete this topic RSV Immunization Patients Un deangelo 20 months Aged Out No longer eligible b ased on patient's age to complete this topic Varicella Vaccines Aged Out No longer eligible based on patient's age to complete this topic
--- OUTSIDE RECORDS SUMMARY | 2024-11-27 06:25 | XMS_ITS | Patient Health Record ---
Author Organization [facility] Address [address] [place] [address] Care Team Providers Care Projector Booth Operator Name Role Phone JASON YU Primary Care Provider [phone] Reason For Referral No Information Plan Of Treatment No Information
== END 2024-11-27 06:23 | disposition home or self-care (01) ==
LOC: CF 06:22
PROVIDERS: Visit Provider Anesthesiology
DX: M47.812 Spondylosis without myelopathy or radiculopathy, cervical region (principal)
CPT/HCPCS: 64490; 64491; J2003; J2795; Q9967

== ENCOUNTER 2024-11-29 10:17 | Outpatient (AMB) | payer MEDICAID, SELFPAY ==
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
[2024-11-29 10:21] VITALS: BP 139/80; PULSE 96; O2SAT 97; BMI 24.3
--- OUTSIDE RECORDS SUMMARY | 2024-11-29 10:59 | XMS_ITS | Clinical Summary ---
Author Organization [facility] Address [address] [place] [address] Care Team Providers Care Washer And Capper Machine Operator Name Role Phone Renea Ho EMT Unavailable [phone] Dontrell Foley MD Unavailable [phone] Stevenson Ac CM Unavailable Abran Howard MD Unavailable [phone] Lenard Ferraro Unavailable [phone] Kesha Dawson SCHEDULE ANALYST Unavailable Cassandra Santos EMT P Unavailable Pcp, No Primary Care Provider Unavailabl e Asuncion Whyte Unavailable Rhonda Edmondson Unavailable Miesha Elam SPREADER Unavailable [phone] Laisha Jones EMT Unavailable [phone] Chato Carroll SCHEDULE ANALYST Unavailable Lisseth Avendano SPREADER Unavailable Kacy Pedro BS Unavailable [phone] Rivka Metzger DRAW END HAND Unavailable Lilliana Connolly EMT P Unavailable Maria Luz Dai Unavailable Yamini Hauser EMT P Unavailable [phone] Allergies Active Allergy Reactions Criticality Noted Date [...] from the original note were not included. [facility] [address] [facility] RC JOSÉ PATO RES MDTWN [address] [facility] [place] [address] MY SAFETY PLAN Name: Lucy Barnett Date: 02/24/2021 MR#: [id number] The one thing that is most important [...] crisis 1. Name: Scooter Crump 2. Name: [facility] 3. Name: Sweta Philippe Additional Resources: CT infoline 211, Suicide Prevention Lifeline 0-883-312-FPJV (9829), Text Hello to [phone], 025 Step 6 - Making the environment safe/access to guns: No This tool has been adapted from the [employer] Safety Plan [facility] Form 352869 R10-18 Pg 1 of 1 Post traumatic [...] CMIA Nonreactive Nonreactive 02/14/2023 10:10 AM EDT [facility] Comment: Results show no [...] EDT 02/12/2023 9:31 AM EDT Lillie Hamlin EMT P LAB BLOOD ORDERABLES HOSPITAL LAB See Below [facility] [address] [place] [address] from Last 3 Months or Most Recently Relevant to Health Maintenance Advance Directives * Full Code (Latest Code Status on File) Date Activated Date Inactivated Comments 02/12/2023 11:52 AM 03/11/2023 3:07 PM * Full Code Date Activated Date Inactivated Comments 02/25/2021 9:49 PM 03/15/2021 3:21 PM Care Teams Washer And Capper Machine Operator Relationship Specialty Start Date End Date Pcp, No PCP - General General Medicine 06/11/22 Renea Ho EMT [address] [place] [address] Clinician Social Work 02/18/21 Dontrell Foley MD [address] [place] [address] Psychiatry, General 02/19/21 Stevenson Ac CM [address] [place] [address] Clinician Social Work 02/26/21 Abran Howard MD [address] [place] [address] Psychiatry, General 03/09/21 Lenard Ferraro [address] [place] [address] Clinician Social Work 03/10/21 Kesha Dawson LCSW [address] [place] [address] Infection Prevention Specialist Clinical Social Work 04/08/21 Cassandra Santos APRN [address] [place] [address] Nurse Practitioner Psychiatry, [facility] 11/16/21 Asuncion Whyte [address] [place] [address] Clinician Social Work 06/13/22 Rhonda Edmondson [address] [place] [address] Clinician Social Work 06/16/22 Miesha Elam, [facility] [address] [place] [address] Clinician Social Work 06/17/22 Laisha Jones LPC [address] [place] [address] Clinician Clinical Social Work 06/17/22 Chato Carroll LCSW [address] [place] [address] [phone] Infection Prevention Specialist Clinical Social Work 06/21/22 Lisseth Avendano, [address] [address] Clinician Social Work 06/23/22 Kacy Pedro BS [address] [place] [address] [phone] Clinician Social Work 06/28/22 Rivka Metzger LPN [address] [place] [address] [phone] Licensed Practical Nurse 07/01/22 Lilliana Connolly APRN [address] [place], [place] [phone] Nurse Practitioner Psychiatry, General 07/14/22 Maria Luz Dai [address] [place], [place] [phone] Clinician Social Work 08/28/22 Yamini Hauser APRN [address] [place], [place] [phone] Nurse Practitioner Psychiatry, Geriatric 10/25/22
--- OUTSIDE RECORDS SUMMARY | 2024-11-29 10:59 | XMS_ITS | Patient Health Record ---
Author Organization [facility] Address [address] [place] [address] Care Team Providers Care Litigation Coordinator Name Role Phone JASON YU Primary Care Provider Reason For Referral No Information Plan Of Treatment No Information
--- OUTSIDE RECORDS SUMMARY | 2024-11-29 10:59 | XMS_ITS | Encounter Summary ---
Author Organization [facility] Address [address] [place] [address] Care Team Providers Care Is Technician Name Role Phone Pcp, No Primary Care Provider Unavailabl Renea Rg SPRING FORMER Unavailable Dontrell Foley MD Unavailable Christal Emanuel VESSEL TRAFFIC OFFICER Primary Care Provider [phone] Stevenson Ac CM Unavailable Abran Howard MD Unavailable [phone] Lenard Ferraro Unavailable [phone] Kesha Dawson STUDIO MUSICIAN Unavailable Cassandra Santos THEATRICAL TROUPER Unavailable Pcp, No Primary Care Provider Unavailabl e Asuncion Whyte Unavailable Rhonda Edmondson Unavailable Miesha Elam COMMUNICATIONS INSTRUCTOR Unavailable [phone] Laisha Jones SPRING FORMER Unavailable Chato Carroll STUDIO MUSICIAN Unavailable Lisseth Avendano COMMUNICATIONS INSTRUCTOR Unavailable Kacy Pedro BS Unavailable [phone] Rivka Metzger ATHLETIC COACH Unavailable Lilliana Connolly THEATRICAL TROUPER Unavailable Maria Luz Dai Unavailable Yamini Hauser APRN Unavailable [phone] Reason for Visit * Auth/Cert Specialty Diagnoses / Procedures Referred By Contbridgett t Referred To Contact Diagnoses Alcohol dependence (HCC) Alcohol Use Disorder Procedures na Referral ID Status Reason Start Date Expiration Date Visits Re quested Visits Authorized [id number] 1 1 Encounter Details Date Type Department Care Team ([facility] Contact Info) Description 02/24/2021 Lab Requisition [facility] [address] [address] Mp Roman MD [address] [place] [address] Encounter for laboratory testing for COVID-19 [...] Detected Not Detected 02/24/2021 11:[address] [facility] Comment: ADDITIONAL INFORMATION The YOLANDA COVID-19 RT-PCR Assay is Real-Time Reverse Software Development Test Engineer Polymerase Chain Reaction (piece jobber-PCR) for the in vitro qualitative detection of three SARS-Cov-2 target sequences unique to the coronavirus disease 2019 (COVID-19). This is an Emergency Use Authorization (EUA) in vitro diagnostic (IVD) test that has been modified to include the Calixar automated liquid handler. Its analytical performance characteristics have been determined by the tank truck operator and verified by [facility] in a manner consistent with CLIA [...] at the following links: For Healthcare Providers: https://www.fda.gov/media/757957/download For Patients: https://www.fda.gov/media/535811/download TEST INTERPRETATION Data analysis and interpretation is performed using the Virtual [employer] COVID-19 Interpretive Software. SARS-CoV-2 Not Detected: negative [...] included for positive specimens. As per the EZ4U COVID-19 Combo Kit EUA documentation, each COVID [...] quarantine. For more information please refer to: https://www.cdc.gov/coronavirus/2019-ncov/lab/faqs.html#Scolrstcyxio-Eqxkpuq-hy- Diagn ostic-Tests TEST LIMITATIONS Positive results are [...] system. For further details refer to the CagenixPath COVID-19 Combo Kit EUA submission (https://www.fda.gov/media/321648/download). ----- Test performed by [facility], [address] [place] [address] CLIA# [id number] ?[id number] ? Kenneth Collins M.D., Ph.D., [facility], Clinical Toll Testboard Worker Microbiology Nasopharyngeal swab / Unknown 02/24/2021 1:49 PM EDT 02/24/2021 1:49 PM EDT Narrative DOMINIC MOYA - 02/24/2021 11:34 PM EDT Performed at [facility], [address] [place] [address], [place], [place], [place] Lic 0695, CLIA [id number] Mp Roman MD MICROBIOLOGY - GENE RAL ORDERABLES [facility] [address] [place] [address] documented in this encounter Visit Diagnoses Diagnosis Encounter for laboratory testing for COVID-19 virus documented in this encounter Care Teams Is Technician Relationship Specialty Start Date End Date Pcp, No PCP - General General Medicine 07/01/20 02/24/21 Christal Emanuel FNP [address] [place] [address] PCP - General Family Medicine 02/25/21 06/10/22 Pcp, No PCP - General General Medicine 06/11/22 Renea Ho LPC [address] [place] [address] Clinician Social Work 02/18/21 Dontrell Foley MD [address] [place] [address] Psychiatry, General 02/19/21 Stevenson Ac CM [address] [place] [address] Clinician Social Work 02/26/21 Abran Howard MD [address] [place] [address] Psychiatry, General 03/09/21 Lenard Ferraro [address] [place] [address] Clinician Social Work 03/10/21 Kesah Dawson LCSW [address] [place] [address] [phone] Player Manager Clinical Social Work 04/08/21 Cassandra Santos APRN [address] [place] [address] [phone] Nurse Practitioner Psychiatry, General 11/16/21 Asuncion Whyte [address] [place] [address] [phone] Clinician Social Work 06/13/22 Rhonda Edmondson [address] [place] [address] [phone] Clinician Social Work 06/16/22 Miesha Elam, [facility] [address] [place] [address] [phone] Clinician Social Work 06/17/22 Laisha Jones LPC [address] [place] [address] Clinician Clinical Social Work 06/17/22 Chato Carroll LCSW [address] [place] [address] Player Manager Clinical Social Work 06/21/22 Lisseth Avendano, [address] [phone] Clinician Social Work 06/23/22 Kacy Pedro BS [address] [place] [address] Clinician Social Work 06/28/22 Rivka Metzger LPN [address] [place] [phone] Licensed Practical Nurse 07/01/22 Lilliana Connolly APRN [address] [place] [address] Nurse Practitioner Psychiatry, General 07/14/22 Maria Luz Dai [address] [place], [place] 487[address] Clinician Social Work 08/28/22 Yamini Hauser APRN [address] [place] [address] Nurse Practitioner Psychiatry, Geriatric 10/25/22 documented as of this encounter
--- OUTSIDE RECORDS SUMMARY | 2024-11-29 10:59 | XMS_ITS | Clinical Summary ---
Author Organization [facility] Address [address] [place] [address] Care Team Providers Care Retail Event Coordinator Name Role Phone Leobardo Diez MD Unavailable [phone] Braeden Gunter MD Unavailable Rekha Buck MD Unavailable [phone] Diann Tom RN Unavailable Unavailable Ramya Fowler RN Unavailable Mel Betts MD Unavailable Maria Victoria Glass Primary Care Provider [phone] Allergies Active Allergy Reactions Criticality Noted Date [...] Bipolar disorder, current ep isode depressed, moderate ([facility]) 02/18/2021 Depressive disorder 08/26/2015 Chronic tonsillitis 08/06/2014 Resolved Problems Problem Noted Date Diagnosed Date Resolved Date Unwanted with plans for termination 12/11/1905/21/2021 Overview (12/11/2020): Added automatically from request for surgery [id number] High-risk in first trimester 11/28/2020 05/21/2021 Overview (12/05/2020): RESIDENT CLINIC PATIENT Problems -Hx bipolar d/o - on lurasidone, topomax, zoloft, stopped with pos UPT, following w/ [facility] and has appt on 12/07 [...] AB/AG Negative Negative 11/28/2020 3:57 PM EST [facility] Blood Venous blood specimen / Unknown Venipuncture / Unknown 11/28/2020 12:34 PM EST 11/28/2020 12:34 PM EST Narrative [facility] - 11/28/2020 3:57 PM EST This test is a 4th generation HIV Antigen-Antibody Combination assay, using a chemiluminescent microparticle immunoassay, for the simultaneous qualitative detection of human immuno- deficiency virus (HIV) p24 antigen and antibodies to HIV type 1 (HIV-1) and/or HIV type 2 (HIV-2) in human serum or plasma. The Rogers Can Reconditioner HIV Ag/Ab Combo assay is intended to [...] BLOOD ORDERABLES NO STAT Fin al Result [facility] [address] [place] [address], [place] [phone] * Pap Test (05/13/2020 2:18 PM EDT) Case Report Cytology ?Case: [id number] ? Authorizing Provider: ??Dilia Mg APRN ? Collected: ? 05/13/2020 1418 ? Ordering Location: ? [facility] Department of Received: ?05/14/2020 0839 ? Women's Health ? First Screen: ?Lynn Nicole CT (ASCP) ? Specimen: ?Cytopathology, screening PAP test, Endocervix ? 05/15/2020 3:04 PM EDT [facility] LMP 05/05/2020 05/15/2020 3:04 PM EDT [facility] Interpretation Negative for intraepithelial lesion or malignancy 05/15/2020 3:04 PM EDT [facility] Specimen Adequacy Satisfactory for evaluation, endocervical/bragg sformation zone component present 05/15/2020 3:04 PM EDT [facility] Other Findings Shift in lis suggestive of bacterial vaginosis 05/15/2020 3:04 PM EDT [facility] Comment:Inflammation present Specimen Processing Thin Prep pap with manual screen/rescreen or review 05/15/2020 3:04 PM EDT [facility] Educational Note The Pap test is a screening test which carries an inherent false negative rate. These test results should be correlated with the patient's clinical findings and history. 05/15/2020 3:04 PM EDT [facility] Embedded Images 0 3:04 PM EDT [facility] Voca biopsy (procedure) Endocervical structure / Unknown Non-blood Collection / Unknown 05/13/2020 2:18 PM EDT 05/14/2020 8:39 AM EDT us Dilia Mg APRN LAB PATHOLOGY/CYTOLOGY ORDERA BLES Final Result [facility] [address] [place] [address], [place] [phone] from Last 3 Months or Most Recently Relevant to Health Maintenance Advance Directives For more information, please contact: [phone] Documents on File Type Date Recorded Patient Lump Roller Expl anation Advance Directives 12/17/2020 10:42 AM Care Teams Retail Event Coordinator Relationship Specialty Start Date End Date Maria Victoria Glass [address] [place] [address] PCP - General Family Medicine 02/23/23 Leobardo Diez MD Consulting Physician Obstetrics and Gynecology 05/20/21 Braeden Gunter MD [address] [place], [place] [address] [address] Obstetrics and Gynecology 05/20/21 Rekha Buck MD [address] [place], [place] [address] [address] Marine Diver Obstetrics and Gynecology 06/02/21 Diann Tom, RN [address] [place] [address] Registered Nurse Nursing 07/21/21 Ramya Fowler, RN [facility] [id number] Registered Nurse Obstetrics and Gynecology 10/22/21 Mel Betts MD [address] [place] [address] Consulting Physician Obstetrics and Gynecology 05/17/22
--- OUTSIDE RECORDS SUMMARY | 2024-11-29 10:59 | XMS_ITS | Clinical Summary ---
Author Organization [facility] Address [address] [place] [address] Care Team Providers Care Racing Driver Name Role Phone Unavailable Primary Care Provider [...] patient's age to complete this topic Meningococcal B Vacine Aged Out No lo nger eligible based on patient's age to complete [...]
--- OUTSIDE RECORDS SUMMARY | 2024-11-29 10:59 | XMS_ITS | Clinical Summary ---
Author Organization [facility] Address [address] [place] [address] Care Team Providers Care Dedicated Owner Operator Name Role Phone Jenna Martinez PA-C Primary Care Provider [phone] Source Comments PLEASE NOTE, if this patient [...] smear 3 Overview (09/14/2023): - At [facility], ? 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 Assessment & Plan (09/07/2023 10:34 AM EST): - At [facility], ? - Repeat pap collected 09/07/2023 Mental [...] 3 - 19 + 3-dose series) 01/19/2011 [id number] (2 - season) 2024 022 Imm-Influenza (#1) [...] 10:36 AM EST) CLINICAL INFORMATION See Note [facility] Comment:Routine exam LMP See Note [facility] Comment:[id number] PREV. PAP See Note [facility] Comment:NONE GIVEN PREV. BX See Note [facility] Comment:NONE GIVEN SOURCE See Note [facility] Comment:Cervix STATEMENT OF ADEQUACY See Note [facility] Comment: Satisfactory for evaluation. Endocervical/transformation zone component present. INTERPRETATION/RESU LT See Note [facility] Comment: Cytology Results: Negative for intraepithelial lesion or malignancy. COMMENT See Note [facility] Comment: This Pap test has been evaluated with computer assisted technology. INFORMATION TECHNOLOGY ASSOCIATE See Note [facility] Comment: RXB, CT(ASCP) CT screening location: [address] ??[address] COMMENT [facility] HPV MRNA E6/E7 Not Detected Not Detected [facility] Comment: Methodology: Tuck Pointer Helper-Mediated Amplification This assay detects E6/E7 viral messenger RNA (mRNA) from 14 high-risk HPV types (16,18,31,33,35,39,45,51,52,56,58,59,66,68). Cervical sources are required for HPV testing. If a vaginal source from a patient who has had a total hysterectomy with removal of cervix was submitted, please contact the testing laboratory for alternative testing options. For additional information, please refer to http://education.Venustech/faq/RIR158z6 (This link if provided for information/ educational purposes only.) Swab Vaginal structure / Unknown 09/07/2023 10:36 AM EST 09/08/2023 5:13 AM EST Narrative [facility] - 09/13/2023 2:58 PM EST EXPLANATORY NOTE: [...] - NO BLOOD DRAW Final Resu lt [facility] [address] [place] [address], [facility] [address] [place] [address] * NFCT AGNT GENOTYP NUCLEIC ACID HEPATITIS C VIRUS (08/19/2023 11:16 AM EDT) HEPATITIS C VIRAL RNA GENOTYPE, LIPA Not Detected [facility] Comment: Genotype not detected due to low [...] of this assay have been determined by [facility]. ??The modifications have not been cleared or approved by the FDA. ??This assay has been validated pursuant to the CLIA regulations and is used for clinical purposes. ? For additional information, please refer to http://education.DeluxeBox/faq/HCVGenotyping (This link is being provided for informational/ educational purposes only.) ? 08/19/2023 11:1 6 AM EDT 08/19/2023 11:16 AM EDT Jenna Martinez PA-C LAB - BLOOD DRAW Final Resu lt [facility] [id number] [place], [place] , [facility] [facility] [address] [place], [place] * SYPHILIS ANTIBODY CASCADING REFLEX (08/18/2023 2:10 PM EDT) Pathologist [facility] T. PALLIDUM AB, EIA NEGATIVE NEGATIVE [facility] Comment: No antibodies to T. [...] Res ult - Final Performing Organization Address [facility] de Phone Number [facility] [address] [address], [place] [address] [address] * HIV 1/2 AG & AB W/RFLX (4TH GEN) (08/18/2023 2:10 PM EDT) [facility] HIV AG/AB, 4TH GEN NON-REAC TIVE NON-REAC TIVE [facility] Comment: HIV-1 antigen and HIV-1/HIV-2 antibodies [...] ?? For additional information please refer to http://education.Visionary Fun.Qwilt/faq/HRK810 (This link is being provided for informational/ educational purposes only.) The performance of this assay has not been clinically validated in patients less than 2 years old. Blood Blood / Unknown 08/18/2023 2 :10 PM EDT 08/18/2023 2:11 PM EDT us Jenna Martinez PA-C LAB - BLOOD DRAW Final Resu lt Performing Organization Address [facility]/ZIP Co de Phone Number [facility] [address] [address], [place] [address] [address] * (ABNORMAL) LIPID PANEL (08/18/2023 2:10 PM EDT) CHOLESTEROL, TOTAL 237(H) <200 mg/dL [facility] HDL CHOLESTEROL 54 > OR = 50 mg/dL [facility] TRIGLYCERIDES 118 <150 mg/dL [facility] LDL-CHOLESTEROL 159(H) 99 mg/dL (calc) [facility] Comment: Reference range: <100 Desirable range <100 mg/dL for primary prevention; ?? <70 mg/dL for patients with CHD or diabetic patients with > or = 2 CHD risk factors. LDL-C is now calculated using the Angelo calculation, which is a validated novel method providing better accuracy than the Friedewald equation in the estimation of LDL-C. Dong SS et al. ELISABETH. 2013;310(19): 8449-5833 (http://education.DeluxeBox/faq/EDG227) CHOL/HDLC RATIO 4.4 <5.0 (calc) [facility] NON-HDL CHOLESTEROL 183(H) <130 mg/dL (calc) [facility] Comment: For patients with diabetes plus 1 major ASCVD risk factor, treating to a non-HDL-C goal of <100 mg/dL (LDL-C of <70 mg/dL) is considered a therapeutic option. Blood Blood / Unknown 08/18/2023 2 :10 PM EDT 08/18/2023 2:11 PM EDT Jenna Martinez PA-C LAB - BLOOD DRAW Final Resu lt [facility] [address] [address], [facility] [address] [place] [address] from Last 3 Months or Most Recently Relevant to Health Maintenance Insurance [employer] Care Teams Dedicated Owner Operator Relationship Specialty Start Date End Date Jenna Martinez PA-C [facility] [place] [address] PCP - General Primary Care 08/17/23
--- OUTSIDE RECORDS SUMMARY | 2024-11-29 10:59 | XMS_ITS | Encounter Summary ---
Author Organization [facility] Address [address] [place] [address] Care Team Providers Care Identification Clerk Name Role Phone Pcp, Agatha SULLIVAN Primary Care Provider Unavailabl e Leobardo Diez MD Unavailable Braeden Gunter MD Unavailable [phone] Rekha Buck MD Unavailable [phone] Diann Tom RN Unavailable Unavailable Ramya Fowler RN Unavailable Mel Betts MD Unavailable Maria Victoria Glass Primary Care Provider [phone] Encounter Details Date Type Department Care Team (Late st Contact Info) Description 05/20/2021 Orders Only [facility] Department of Women's Health Outpatient [place] [address] [id number] Braeden Gunter MD [address] [facility] [place] [address] Social History Tobacco Use Types Packs/Day Years [...] documented as of this encounter Care Teams Identification Clerk Relationship Specialty Start Date End Date Agatha Oliva MD [address] [place] [address] PCP - General Internal Medicine 12/24/19 02/22/23 Maria Victoria Glass [address] [place] [address] [place] [address] PCP - General Family Medicine 02/23/23 Leobardo Diez MD [address] [place] [address] Consulting Physician Obstetrics and Gynecology 05/20/21 Braeden Gunter MD [address] [place] [address]-[employer] [place] [address] Obstetrics and Gynecology 05/20/21 Rekha Buck MD [address] [place], [place] [address] [place] [address] Personnel Worker Obstetrics and Gynecology 06/02/21 Diann Tom, ENRIQUE [address] [place] [address] Registered Nurse Nursing 07/21/21 Ramya Fowler RN [facility] [address] [place], [place] [id number] Registered Nurse Obstetrics and Gynecology 10/22/21 Mel Betts MD [address] [place] [address] [place] [address] Consulting Physician Obstetrics and Gynecology 05/17/22 documented as of this encounter
--- OUTSIDE RECORDS SUMMARY | 2024-11-29 10:59 | XMS_ITS | Patient Health Record ---
Author Organization [facility] [place], Address [address] [place] [address] Support Name Relationship Address Phone LEIDY AYALALYN Emergency Contact [address] [place], [place] [address] CITLALI RANDOLPH Guarantor Unknown [phone] Allergies Allergen (clinical drug ingredient) Drug/Non Drug Allergy documented on EMR Reaction Allergy Type Onset Date Status Fish Flavor Unknown Drug Allergy Activ e peanut allergenic extract Peanut (Diagnostic) Unknown Drug Allergy Active Latex Latex Unknown Allergy Active Reason For Referral No Information Medications Medication SIG (Take, Route, Fr equency, Duration) Notes Start Date End Date Status Gabapentin 800 MG 1 tablet Orally Once a day Active Vraylar 1.5 & 3 MG as directed Orally Active Topamax 50 MG 1 tablet Orally Once a day Active Immunizations Vaccine Route Administration Date Status Comme nts Tdap IM Intramuscular 06/06/2021 Administered Plan Of Treatment No Information Insurance Providers Payer Name Payer Address Payer Phone Subscriber Number Group Number Insured Name Patient Relationship to Insured Coverage Start Date Coverage End Date Medicaid of [place] [address] [place] [address] [id number] CITLALI RANDOLPH Self - patient is the insured
--- OUTSIDE RECORDS SUMMARY | 2024-11-29 10:59 | XMS_ITS | Clinical Summary ---
Author Organization [facility] Address [address] [place] [address] Care Team Providers Care Therapeutic Radiologist Name Role Phone Unavailable Primary Care Provider [...]
== END 2024-11-29 10:45 | disposition home or self-care (01) ==
PROVIDERS: PCP Physician Assistant Medical; Visit Provider Anesthesiology
DX: M47.812 Spondylosis without myelopathy or radiculopathy, cervical region (principal); M54.51 Vertebrogenic low back pain; G89.4 Chronic pain syndrome; M54.12 Radiculopathy, cervical region; G56.01 Carpal tunnel syndrome, right upper limb
CPT/HCPCS: 99213

== ENCOUNTER 2024-11-29 14:41 | Outpatient (REF) | payer MEDICAID, SELFPAY ==
--- NOTE | 2024-11-29 | EMG_ITS ---
Chief complaint: Right upper extremity pain Reason for referral: Evaluate for Carpal Tunnel Syndrome versus radiculopathy Referred by: Dr. Mckay Procedure done: Right upper extremity NCS/EMG Precautions and/or limitations: None The limb temperature was monitored continuously and remained between 32-36 degrees C during the performance of the NCS. Nerve Conduction Studies Anti Sensory Summary Table ?Stim Site NR Onset (ms) Norm Onset (ms) Peak (ms) Norm Peak (ms) O-P Amp (?V) Norm O-P Amp Site1 Site2 Delta-0 (ms) Dist (cm) Branden (m/s) Norm Branden (m/s) Right Median Anti Sensory (2nd Digit) Wrist ? 2.5 3.2 <3.6 32.8 >10 Wrist 2nd Digit 2.5 14.0 56 Right Radial Anti Sensory (Thumb) Forearm ? 1.5 2.0 <3.1 26.0 Forearm Thumb 1.5 0.0 Right Ulnar Anti Sensory (5th Digit) Wrist ? 1.8 2.8 <3.7 44.4 >15.0 Wrist 5th Digit 1.8 14.0 78 Motor Summary Table ?Stim Site NR Onset (ms) Norm Onset (ms) O-P Amp (mV) Norm O-P Amp iAmp (mV) Amp (1st) (%) Site1 Site2 Delta-0 (ms) Dist (cm) Branden (m/s) Norm Branden (m/s) Right Median Motor (Abd Poll Brev) Wrist ? 3.1 <3.9 12.1 >4.5 13.7 100.0 Elbow Wrist 3.2 18.5 58 >45 Elbow ? 6.3 12.1 13.9 100.0 Right Ulnar Motor (Abd Dig Minimi) Wrist ? 2.4 <3.0 15.1 >5 17.3 100.0 B Elbow Wrist 3.1 18.0 58 >45 B Elbow ? 5.5 14.6 16.9 96.7 A Elbow B Elbow 1.2 10.0 83 >45 A Elbow ? 6.7 12.8 15.0 84.8 EMG ?Side Muscle Nerve Root Ins Act Fibs Psw Amp Dur Poly Recrt Int Pat Comment Right 1stDorInt Ulnar C8-T1 Nml Nml Nml Nml Nml 0 Nml Complete Right FlexCarRad Median C6-7 Nml Nml Nml Nml Nml 0 Nml Complete Right Biceps Musculocut C5-6 Nml Nml Nml Nml Nml 0 Nml Complete Right Triceps Radial C6-7-8 Nml Nml Nml Nml Nml 0 Nml Complete Right Deltoid Axillary C5-6 Nml Nml Nml Nml Nml 0 Nml Complete FINDINGS: All motor and sensory nerves tested showed normal latencies, amplitudes and conduction velocities. Concentric needle EMG was performed in selected muscles of the right upper extremity. Study did not reveal signs of electric abnormalities as shown in the table above. IMPRESSION: 1. This is a normal study. 2. There is no electrodiagnostic evidence for median neuropathy, ulnar neuropathy, brachial plexopathy, or cervical radiculopathy. Thank you for your kind referral. Claudette Hdez MD, DARIELA Board Certified, [place] [employer] (ABPMR) Board Certified, [place] [employer] Electro[employer] (ABEM) CODIN [id number] MTDD
--- OUTSIDE RECORDS SUMMARY | 2024-11-29 14:44 | XMS_ITS | Encounter Summary ---
Author Organization [facility] Address [address] [place] [address] Care Team Providers Care Commercial Real Estate Lender Name Role Phone Pcp, No Primary Care Provider Unavailabl Renea Rg INSPECTOR TOOL Unavailable [phone] Dontrell Foley MD Unavailable [phone] Christal Emanuel MATE FISHING VESSEL Primary Care Provider [phone] Stevenson Ac CM Unavailable Abran Howard MD Unavailable [phone] Lenard Ferraro Unavailable [phone] Kesha Dawson RN SPINE Unavailable Cassandra Santos KENNEL MANAGER Unavailable Pcp, No Primary Care Provider Unavailabl e Asuncion Whyte Unavailable Rhonda Edmondson Unavailable Miesha Elam INSTRUCTIONAL TECHNOLOGY DIRECTOR Unavailable [phone] Laisha Jones INSPECTOR TOOL Unavailable Chato Carroll RN SPINE Unavailable Lisseth Avendano INSTRUCTIONAL TECHNOLOGY DIRECTOR Unavailable Kacy Pedro BS Unavailable [phone] Rivka Metzger RACEHORSE TRAINER Unavailable Lilliana Connolly KENNEL MANAGER Unavailable Maria Luz Dai Unavailable Yamini Hauser APRN Unavailable [phone] Reason for Visit * Auth/Cert Specialty Diagnoses / Procedures Referred By Contbridgett t Referred To Contact Diagnoses Alcohol dependence (HCC) Alcohol Use Disorder Procedures na Referral ID Status Reason Start Date Expiration Date Visits Re quested Visits Authorized [id number] 1 1 Encounter Details Date Type Department Care Team ([facility] Contact Info) Description 02/24/2021 Lab Requisition [id number] [address] [address] Mp Roman MD [address] [place] [address] Encounter for laboratory testing for COVID-19 [...] Detected Not Detected 02/24/2021 11:34 PM EDT [facility] Comment: ADDITIONAL INFORMATION The YOLANDA COVID-19 RT-PCR Assay is Real-Time Reverse Tire Fixer Polymerase Chain Reaction (assembler installer structures-PCR) for the in vitro qualitative detection of three SARS-Cov-2 target sequences unique to the coronavirus disease 2019 (COVID-19). This is an Emergency Use Authorization (EUA) in vitro diagnostic (IVD) test that has been modified to include the Askem automated liquid handler. Its analytical performance characteristics have been determined by the electronic publications specialist and verified by [facility] in a manner consistent with CLIA [...] at the following links: For Healthcare Providers: https://www.fda.gov/media/437255/download For Patients: https://www.fda.gov/media/800426/download TEST INTERPRETATION Data analysis and interpretation is performed using the Sayah COVID-19 Interpretive Software. SARS-CoV-2 Not Detected: negative [...] included for positive specimens. As per the Knip COVID-19 Combo Kit EUA documentation, each COVID [...] quarantine. For more information please refer to: https://www.cdc.gov/coronavirus/2019-ncov/lab/faqs.html#Fesdovhaqvfp-Fcjdllr-mi- Diagn ostic-Tests TEST LIMITATIONS Positive results are [...] system. For further details refer to the MammotomePath COVID-19 Combo Kit EUA submission (https://www.fda.gov/media/755765/download). ----- Test performed by [facility] for payworks Medicine, [address] [place] [address] CLIA# [id number] ?[id number] ? Kenneth Collins M.D., Ph.D., [facility], Clinical Svp Business Development Microbiology Nasopharyngeal swab / Unknown 02/24/2021 1:49 PM EDT 02/24/2021 1:49 PM EDT Narrative DOMINIC MOYA - 02/24/2021 11:34 PM EDT Performed at [facility], [address] [place] [address], [place], [place], [place] Lic 0695, CLIA [id number] Mp Roman MD MICROBIOLOGY - GENE RAL ORDERABLES [facility] [address] [place] [address] documented in this encounter Visit Diagnoses Diagnosis Encounter for laboratory testing for COVID-19 virus documented in this encounter Care Teams Commercial Real Estate Lender Relationship Specialty Start Date End Date Pcp, No PCP - General General Medicine 07/01/20 02/24/21 Christal Emanuel FNP [address] [place] [address] PCP - General Family Medicine 02/25/21 06/10/22 Pcp, No PCP - General General Medicine 06/11/22 Renea Ho LPC [address] [place] [address] Clinician Social Work 02/18/21 Dontrell Foley MD [address] [place] [address] Psychiatry, General 02/19/21 Stevenson Ac CM [address] [place] [address] Clinician Social Work 02/26/21 Abran Howard MD [address] [place] [address] Psychiatry, General 03/09/21 Lenard Ferraro [address] [place] [address] Clinician Social Work 03/10/21 Kesha Dawson LCSW [address] [place] [address] Tool Grinding Technician Clinical Social Work 04/08/21 Cassandra Santos APRN [address] [place] [id number] Nurse Practitioner Psychiatry, General 11/16/21 Asuncion Whyte [address] [place] [address] Clinician Social Work 06/13/22 Rhonda Edmondson [address] [place] [address] Clinician Social Work 06/16/22 Miesha Elam, [facility] [address] [place] [phone] Clinician Social Work 06/17/22 Laisha Jones LPC [address] [place] [address] Clinician Clinical Social Work 06/17/22 Chato Carroll LCSW [address] [place] [address] Tool Grinding Technician Clinical Social Work 06/21/22 Lisseth Avendano, [address] [address] Clinician Social Work 06/23/22 Kacy Pedro BS [address] [place] [address] Clinician Social Work 06/28/22 Rivka Metzger LPN [address] [phone] Licensed Practical Nurse 07/01/22 Lilliana Connolly APRN [address] [place] [address] Nurse Practitioner Psychiatry, General 07/14/22 Maria Luz Dai [address] [place], [place] [address] Clinician Social Work 08/28/22 Yamini Hauser APRN [address] [place] [address] Nurse Practitioner Psychiatry, Geriatric 10/25/22 documented as of this encounter
--- OUTSIDE RECORDS SUMMARY | 2024-11-29 14:45 | XMS_ITS | Encounter Summary ---
Author Organization [facility] Address [address] [place] [address] Care Team Providers Care Computer Lab Aide Name Role Phone Pcp, Agatha SULLIVAN Primary Care Provider Unavailabl e Leobardo Diez MD Unavailable [phone] Braeden Gunter MD Unavailable [phone] Rekha Buck MD Unavailable [phone] Diann Tom RN Unavailable Unavailable Ramya Fowler RN Unavailable Mel Betts MD Unavailable Maria Victoria Glass Primary Care Provider [phone] Encounter Details Date Type Department Care Team (Late st Contact Info) Description 05/20/2021 Orders Only [facility] Department of Women's Health Outpatient [place] [address] [id number] Braeden Gunter MD [address] [facility] [address] Social History Tobacco Use Types Packs/Day Years [...] documented as of this encounter Care Teams Computer Lab Aide Relationship Specialty Start Date End Date Agatha Oliva MD [address] [place] [address] PCP - General Internal Medicine 12/24/19 02/22/23 Maria Victoria Glass [address] [place] [address] [place] [address] PCP - General Family Medicine 02/23/23 Leobardo Diez MD [address] [place] [address] Consulting Physician Obstetrics and Gynecology 05/20/21 Braeden Gunter MD [address] [place] [address]-[place] [address] Obstetrics and Gynecology 05/20/21 Rekha Buck MD [address] [place], [place] [address] [address] Senior Compensation Analyst Obstetrics and Gynecology 06/02/21 Diann Tom, ENRIQUE [address] [place] [address] Registered Nurse Nursing 07/21/21 Ramya Fowler RN [facility] [address] [place], [place] [phone] Registered Nurse Obstetrics and Gynecology 10/22/21 Mel Betst MD [address] [place] [address] [place] [address] Consulting Physician Obstetrics and Gynecology 05/17/22 documented as of this encounter
--- OUTSIDE RECORDS SUMMARY | 2024-11-29 14:45 | XMS_ITS | Clinical Summary ---
Author Organization [facility] Address [address] [place] [address] Care Team Providers Care Safety Tech Name Role Phone Unavailable Primary Care Provider [...]
--- OUTSIDE RECORDS SUMMARY | 2024-11-29 14:45 | XMS_ITS | Clinical Summary ---
Author Organization [facility] Address [address] [place] [address] Care Team Providers Care Radiology Equipment Servicer Name Role Phone Leobardo Diez MD Unavailable [phone] Braeden Gunter MD Unavailable Rekha Buck MD Unavailable [phone] Diann Tom RN Unavailable Unavailable Ramya Fowler RN Unavailable Mel Betts MD Unavailable Maria Victoria Glass Primary Care Provider [phone] Allergies Active Allergy Reactions Criticality Noted Date [...] Bipolar disorder, current ep isode depressed, moderate ([facility]) 02/18/2021 Depressive disorder 08/26/2015 Chronic tonsillitis 08/06/2014 Resolved Problems Problem Noted Date Diagnosed Date Resolved Date Unwanted with plans for termination 12/11/1905/21/2021 Overview (12/11/2020): Added automatically from request for surgery [id number] High-risk in first trimester 11/28/2020 05/21/2021 Overview (12/05/2020): RESIDENT CLINIC PATIENT Problems -Hx bipolar d/o - on lurasidone, topomax, zoloft, stopped with pos UPT, following w/ [place] [facility] and has appt on 12/07 [...] AB/AG Negative Negative 11/28/2020 3:57 PM EST [facility] Blood Venous blood specimen / Unknown Venipuncture / Unknown 11/28/2020 12:34 PM EST 11/28/2020 12:34 PM EST Narrative [facility] - 11/28/2020 3:57 PM EST This test is a 4th generation HIV Antigen-Antibody Combination assay, using a chemiluminescent microparticle immunoassay, for the simultaneous qualitative detection of human immuno- deficiency virus (HIV) p24 antigen and antibodies to HIV type 1 (HIV-1) and/or HIV type 2 (HIV-2) in human serum or plasma. The [employer] HIV Ag/Ab Combo assay is intended to [...] BLOOD ORDERABLES NO STAT Fin al Result [facility] [address] [place] [address], [place] [phone] * Pap Test (05/13/2020 2:18 PM EDT) Case Report Cytology ?Case: [id number] ? Authorizing Provider: ??Dilia Mg APRN ? Collected: ? 05/13/2020 1418 ? Ordering Location: ? [facility] Department of Received: ?05/14/2020 0839 ? Women's Health ? First Screen: ?Lynn Nicole CT (ASCP) ? Specimen: ?Cytopathology, screening PAP test, Endocervix ? 05/15/2020 3:04 PM EDT [facility] LMP 05/05/2020 05/15/2020 3:04 PM EDT [facility] Interpretation Negative for intraepithelial lesion or malignancy 05/15/2020 3:04 PM EDT [facility] Specimen Adequacy Satisfactory for evaluation, endocervical/bragg sformation zone component present 05/15/2020 3:04 PM EDT [facility] Other Findings Shift in lis suggestive of bacterial vaginosis 05/15/2020 3:04 PM EDT [facility] Comment:Inflammation present Specimen Processing Thin Prep pap with manual screen/rescreen or review 05/15/2020 3:04 PM EDT [facility] Educational Note The Pap test is a screening test which carries an inherent false negative rate. These test results should be correlated with the patient's clinical findings and history. 05/15/2020 3:04 PM EDT [facility] Embedded Images 0 3:04 PM EDT [facility] [place] biopsy (procedure) Endocervical structure / Unknown Non-blood Collection / Unknown 05/13/2020 2:18 PM EDT 05/14/2020 8:39 AM EDT us Dilia Mg APRN LAB PATHOLOGY/CYTOLOGY ORDERA BLES Final Result [facility] [address] [place] [address], [place] [phone] from Last 3 Months or Most Recently Relevant to Health Maintenance Advance Directives For more information, please contact: [phone] Documents on File Type Date Recorded Patient Principal Trainer Expl anation Advance Directives 12/17/2020 10:42 AM Care Teams Radiology Equipment Servicer Relationship Specialty Start Date End Date Maria Victoria Glass [address] [place] [address] PCP - General Family Medicine 02/23/23 Leobardo Diez MD Consulting Physician Obstetrics and Gynecology 05/20/21 Braeden Gunter MD [address] [place], [place] [address] [address] Obstetrics and Gynecology 05/20/21 Rekha Buck MD [address] [place], [place] [address] [address] Soda Drier Feeder Obstetrics and Gynecology 06/02/21 Diann Tom, RN [address] [place] [address] Registered Nurse Nursing 07/21/21 Ramya Fowler, RN [facility] [id number] Registered Nurse Obstetrics and Gynecology 10/22/21 Mel Betts MD [address] [place] [address] Consulting Physician Obstetrics and Gynecology 05/17/22
--- OUTSIDE RECORDS SUMMARY | 2024-11-29 14:45 | XMS_ITS | Clinical Summary ---
Author Organization [facility] Address [address] [place] [address] Care Team Providers Care Usability Engineer Name Role Phone Jenna Martinez PA-C Primary Care Provider [phone] Source Comments PLEASE NOTE, if this patient [...] Pap smear 3 Overview (09/14/2023): - At [facility], ? 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 Assessment & Plan (09/07/2023 10:34 AM EST): - At [facility], ? - Repeat pap collected 09/07/2023 Mental [...] 3 - 19 + 3-dose series) 01/19/2011 [id number] (2 - season) 2024 022 Imm-Influenza (#1) [...] 10:36 AM EST) CLINICAL INFORMATION See Note [facility] Comment:Routine exam LMP See Note [facility] Comment:[id number] PREV. PAP See Note [facility] Comment:NONE GIVEN PREV. BX See Note [facility] Comment:NONE GIVEN SOURCE See Note [facility] Comment:Cervix STATEMENT OF ADEQUACY See Note [facility] Comment: Satisfactory for evaluation. Endocervical/transformation zone component present. INTERPRETATION/RESU LT See Note [facility] Comment: Cytology Results: Negative for intraepithelial lesion or malignancy. COMMENT See Note [facility] Comment: This Pap test has been evaluated with computer assisted technology. STEM PROCESSING MACHINE OPERATOR See Note [facility] t3n [facility] Comment: RXB, CT(ASCP) CT screening location: [address] ??[address] COMMENT [facility] HPV MRNA E6/E7 Not Detected Not Detected [facility] Comment: Methodology: [employer] Appliances Salesperson-Mediated Amplification This assay detects E6/E7 viral messenger RNA (mRNA) from 14 high-risk HPV types (16,18,31,33,35,39,45,51,52,56,58,59,66,68). Cervical sources are required for HPV testing. If a vaginal source from a patient who has had a total hysterectomy with removal of cervix was submitted, please contact the testing laboratory for alternative testing options. For additional information, please refer to http://education.CargoSpotter/faq/CPW790b8 (This link if provided for information/ educational purposes only.) Swab Vaginal structure / Unknown 09/07/2023 10:36 AM EST 09/08/2023 5:13 AM EST Narrative [facility] - 09/13/2023 2:58 PM EST EXPLANATORY NOTE: [...] - NO BLOOD DRAW Final Resu lt [facility] [address] [place] [address], [facility] [address] [place] [address] * NFCT AGNT GENOTYP NUCLEIC ACID HEPATITIS C VIRUS (08/19/2023 11:16 AM EDT) HEPATITIS C VIRAL RNA GENOTYPE, LIPA Not Detected [facility] Comment: Genotype not detected due to low [...] of this assay have been determined by [employer]. ??The modifications have not been cleared or approved by the FDA. ??This assay has been validated pursuant to the CLIA regulations and is used for clinical purposes. ? For additional information, please refer to http://education.[employer]len [employer]/faq/HCVGenotyping (This link is being provided for informational/ educational purposes only.) ? 08/19/2023 11:1 6 AM EDT 08/19/2023 11:16 AM EDT Jenna Martinez PA-C LAB - BLOOD DRAW Final Resu lt [employer] [id number] [place], [place] , [facility] [phone] [place], [place] * SYPHILIS ANTIBODY CASCADING REFLEX (08/18/2023 2:10 PM EDT) Pathologist [facility] T. PALLIDUM AB, EIA NEGATIVE NEGATIVE [employer] [facility] Comment: No antibodies to T. [...] Res ult - Final Performing Organization Address [facility] de Phone Number [employer] [address] [address], [facility] [address] [address] * HIV 1/2 AG & AB W/RFLX (4TH GEN) (08/18/2023 2:10 PM EDT) [facility] HIV AG/AB, 4TH GEN NON-REAC TIVE NON-REAC TIVE [facility] Comment: HIV-1 antigen and HIV-1/HIV-2 antibodies were [...] ?? For additional information please refer to http://education.Demibooks.Filtec/faq/ZUU306 (This link is being provided for informational/ educational purposes only.) The performance of this assay has not been clinically validated in patients less than 2 years old. Blood Blood / Unknown 08/18/2023 2 :10 PM EDT 08/18/2023 2:11 PM EDT us Jenna Martinez PA-C LAB - BLOOD DRAW Final Resu lt Performing Organization Address [facility]/ZIP Co de Phone Number [facility] [address] [address], [facility] [address] [address] * (ABNORMAL) LIPID PANEL (08/18/2023 2:10 PM EDT) CHOLESTEROL, TOTAL 237(H) <200 mg/dL [facility] HDL CHOLESTEROL 54 > OR = 50 mg/dL [facility] TRIGLYCERIDES 118 <150 mg/dL [facility] LDL-CHOLESTEROL 159(H) 99 mg/dL (calc) [facility] Comment: Reference range: <100 Desirable range <100 mg/dL for primary prevention; ?? <70 mg/dL for patients with CHD or diabetic patients with > or = 2 CHD risk factors. LDL-C is now calculated using the Angelo calculation, which is a validated novel method providing better accuracy than the Friedewald equation in the estimation of LDL-C. Dong SS et al. ELISABETH. 2013;310(19): 2324-2523 (http://education.[employer]/faq/MBP418) CHOL/HDLC RATIO 4.4 <5.0 (calc) [employer] [facility] NON-HDL CHOLESTEROL 183(H) <130 mg/dL (calc) [employer] [facility] Comment: For patients with diabetes plus 1 major ASCVD risk factor, treating to a non-HDL-C goal of <100 mg/dL (LDL-C of <70 mg/dL) is considered a therapeutic option. Blood Blood / Unknown 08/18/2023 2 :10 PM EDT 08/18/2023 2:11 PM EDT Jenna Martinez PA-C LAB - BLOOD DRAW Final Resu lt [employer] [facility] [address] [address], [facility] [address] [place] [address] from Last 3 Months or Most Recently Relevant to Health Maintenance Insurance [employer] Care Teams Usability Engineer Relationship Specialty Start Date End Date Jnena Martinez PA-C [facility] [place] [address] PCP - General Primary Care 08/17/23
--- OUTSIDE RECORDS SUMMARY | 2024-11-29 14:45 | XMS_ITS | Continuity of Care Document ---
Author Organization [facility] Address [address] [place] [address] Phone Care Team Providers Care Skylights Assembler Name Role Phone Maria Victoria Glass APRN [...] Location Reason(s) For Visit Diagnoses Date Provider [facility], [address] [place] [address], [facility], tel:[phone] [facility] Care Bris 10 NMS No Information 3 Quan Irene. [address] [place] [address], [id number], [place]. tel:[phone] [facility], [address] [place] [address], [address], tel:[phone] [facility] Care Bris 10 NMS back pain (chief complaint)Thyr oid problems (chief complaint) Body mass index (BMI) 32.0-32.9, adultDietary counseling and surveillanceBack painFatigue 3 Minihan Maria Victoria. [address] [place] [address], [id number], [place]. tel:[phone] [facility], [address] [place] [address], [address], [place] tel:[phone] OP A Bris 225 NMS Mar-2 3 Agudelo Jocelyne . [address] [place] [address], [id number], [place]. tel:[phone] [facility], [address] [place] [address], [address], [place] tel:[phone] OP A Bris 225 NMS Mar- 3 Sammi Ayanna. [address] [place] [address], [id number], [place]. tel:[phone] [facility], [address] [place] [address], [address], [place] tel:[phone] OP A Bris 10 NMS Mar-0 3 [place] Ayanna. [address] [place] [address], [id number], [place]. tel:[phone] [facility], [address] [place] [address], [address], [place] tel:[phone] IOP A Plnv [address] [place] [address] 3 London Serrita. [address] [place] [address], [id number], [place]. tel:[phone] [facility], [address] [place] [address], [address], [place] tel:[phone] IOP A Wtbry [address] 3 Capel Riri. [address] [place] [address], [id number], [place]. tel:[phone] [facility], [address] [place] [address], [address], [place] tel:[phone] OP A Bris 10 NMS 3 Ponce Lanie. [address] [place] [address], [id number], [place]. tel:[phone] [facility], [address] [place] [address], [address], [place] tel:[phone] [facility] Care Bris 10 NMS MAT (*Medication Assisted [place]) (chief complaint) 0 5-202 3 Minihan Maria Victoria. [address] [place] [address], [id number], [place]. tel:[phone] [facility], [address] [place] [address], [address], [place] tel:[phone] IOP A Wtbry [address] May-0 4-202 3 Capel Riri. [address] [place] [address], [id number], [place]. tel:[phone] [facility], [address] [place] [address], [address], [place] tel:[phone] OP A Wtbry [address] February-0 3-202 3 Capel Riri. [address] [place] [address], [id number], [place]. tel:[phone] [facility], [address] [place] [address], [address], [place] tel:[phone] OP A Bris 10 NMS February-0 2-202 3 Ponce Lanie. [address] [place] [address], [id number], [place]. tel:[phone] [facility], [address] [place] [address], [address], [place] tel:[phone] [facility] NMS MAT (*Medication Assisted [place]) (chief complaint)Anxi ety (chief complaint) Dietary counseling and surveillanceBody mass index (BMI) 29.0-29.9, adult February-0 2-202 3 Minihan Maria Victoria. [address] [place] [address], [id number], [place]. tel:[phone] [facility], [address] [place] [address], 23[address], [place] tel:[phone] [facility] 10 NMS No Information February-0 1-202 3 Minihan Maria Victoria. [address] [place] [address], [id number], [place]. tel:[phone] [facility], [address] [place] [address], [address], tel:[phone] [facility] Care Bris 10 NMS HOSP F/U (chief complaint) Hepatitis CBody mass index (BMI) 19.9 or less, adultPain in right shoulderDietary counseling and surveillanceExercise counseling 2 Quan Irene. [address] [place] [address], [id number], [place]. tel:[phone] [facility], [address] [place] [address], [address], [place] tel:[phone] [facility] Htfd [address] Right shoulder pain (chief complaint)Naus ea/vomiting (chief complaint) Body mass index (BMI) 26.0-26.9, adultPain in right shoulderNausea with vomiting, unspecifiedDietary counseling and surveillanceExercise counseling 2 Danuta Ely. [address] [place] [address], [id number], [place]. tel:[phone] [facility], [address] [place] [address], [address], [place] tel:[phone] [facility] W[facility] [address] Discuss test results (chief complaint) Body mass index (BMI) 27.0-27.9, adultHepatitis CHypercholesterolemiaDiet cierra counseling and surveillanceExercise counseling 2 Wimaumaarthur Reid. [address] [place] [address], [id number], [place]. tel:[phone] [facility], [address] [place] [address], [address], [place] tel:[phone] [facility] Wtb[facility] [address] Body mass index (BMI) 27.0-27.9, adult 2 Shireen Reid. [address] [place] [address], [id number], [place]. tel:[phone] [facility], [address] [place] [address], [address], [place] tel:[phone] [facility] Care NBrit 40 Carey No Information 1 Adelfo Siegel. [address] [place] [address], [id number], [place]. tel:[phone] [facility], [address] [place] [address], 117[address], [place] tel:[phone] [facility] NBrit 40 Carey physical (chief complaint) Body mass index (BMI) 27.0-27.9, adultEncounter for immunizationEncntr for general adult medical exam w/o abnormal findings 1 Adelfo Siegel. [address] [place] [address], [id number], [place]. tel:[phone] [facility], [address] [place] [address], 5[address], [place] tel:[phone] [facility] Care Bris 10 NMS Encounter for immunization 1 Erika Sneed. [address] [place] [address], [address] [place] [address], [place]. tel:[phone] [facility], [address] [place] [address], [facility], [place] tel:[phone] [facility] 10 NMS Medication (chief complaint)MAT (*Medication Assisted [place]) (chief complaint) No Information 1 Adelfo Siegel. [address] [place] [address], [id number], [place]. tel:[phone] [facility], [address] [place] [address], [facility], [place] tel:[phone] [facility] Care Bris 10 NMS MAT (*Medication Assisted [place]) (chief complaint)er follow up (chief complaint) Body mass index (BMI) 25.0-25.9, adultEncounter for screening for other disorderDietary counseling and surveillanceExercise counseling 1 Adelfo Siegel. [address] [place] [address], [id number], [place]. tel:[phone] [facility], [address] [place] [address], 064[address], [place] tel:[phone] [facility] Care Bris 10 NMS relapse (chief complaint) 1 Adelfo Siegel. [address] [place] [address], [id number], [place]. tel:[phone] [facility], [address] [place] [address], 90628, [place] tel:[phone] OP A LL Plnv 91 [address] 1 Kirby Case. [address] [place] [address], [id number], [place]. tel:[phone] [facility], [address] [place] [address], [facility], [place] tel:[phone] Medication Management (chief complaint)Psyc hiatric (chief complaint) 1 Kris Salinas. [address] [place] [address], [id number], [place]. tel:[phone] [facility], [address] [place] [address], [facility], tel:[phone] OP A LL Plnv D 1 Kirby Barrowsa. [address] [place] [address], [address] [place] [address], [place]. tel:[phone] [facility], [address] [place] [address], [facility], [place] tel:[phone] [facility] Bris 10 NMS MAT (*Medication Assisted [place]) (chief complaint) Body mass index (BMI) 27.0-27.9, adultEncounter for screening for other disorderDietary counseling and surveillanceExercise counseling Dec- 1 Adelfo Siegel. [address] [place] [address], [id number], [place]. tel:[phone] [facility], [address] [place] [address], [facility], [place] tel:[phone] [facility] Care NBrit 75 NMR establishment of care (chief complaint)anxi ety (chief complaint)medi cation management (chief complaint)othe r (chief complaint) Body mass index (BMI) 27.0-27.9, adultSpontaneous abortionDietary counseling and surveillanceExercise counselingEncounter for screening for other disorder Dec-2 1 Adelfo Siegel. [address] [place] [address], [id number], [place]. tel:[phone] [facility], [address] [place] [address], 80[address], [place] tel:[phone] OP A LL Plnv 91 NWD Dec-2 3 1 Kirby Evie. [address] [place] [address], [id number], [place]. tel:[phone] [facility], [address] [place] [address], 284[address], [place] tel:[phone] Dec-1 5 1 [place] Evie. [address] [place] [address], [id number], [place]. tel:[phone] [facility], [address] [place] [address], 42436, [place] tel:[phone] OP A LL Plnv NWD Medication Management (chief complaint)Psyc hiatric (chief complaint) Dec-0 8- 1 Kris Salinas. [address] [place] [address], [id number], [place]. tel:[phone] [facility], [address] [place] [address], 61130, [place] tel:[phone] OP A LL Plnv NWD Dec-0 1 Kirby Evie. [address] [place] [address], [id number], [place]. tel:[phone] [facility], [address] [place] [address], 60935, [place] tel:[phone] [facility] Wtbry [address] MAT (*Medication Assisted [place]) (chief complaint) Body mass index (BMI) 25.0-25.9, adultDietary counseling and surveillanceExercise counseling Dec-0 3- 1 Shireen Reid. [address] [place] [address], [id number], [place]. tel:[phone] [facility], [address] [place] [address], 13790, [place] tel:[phone] Medication Management (chief complaint)Psyc hiatric (chief complaint) 1 Kris Chonga. [address] [place] [address], [id number], [place]. tel:[phone] [facility], [address] [place] [address], 93513, tel:[phone] OP A Plnv [address] 1 [place] Evie. [address] [place] [address], [id number], [place]. tel:[phone] [facility], [address] [place] [address], 31423, [place] tel:[phone] OP A Plnv [address] Medication Management (chief complaint)Psyc hiatric (chief complaint) 1 Kris Chonga. [address] [place] [address], [id number], [place]. tel:[phone] [facility], [address] [place] [address], [facility], tel:[phone] Medication Management (chief complaint)Psyc hiatric (chief complaint) 1 Kris Chonga. [address] [place] [address], [id number], [place]. tel:[phone] [facility], [address] [place] [address], [address]757, [place] tel:[phone] [address] Medication Management (chief complaint)Psyc hiatric (chief complaint) 0 Ponce Rita. [address] [place] [address], [id number], [place]. tel:[phone] [facility], [address] [place] [address], 03722, [place] tel:[phone] OP A Plnv [address] 0 Kirby Evie. [address] [place] [address], [id number], [place]. tel:[phone] [facility], [address] [place] [address], 07126, [place] tel:[phone] OP A Plnv [facility] 7 0 Hsu Reza. [address] [place] [address], [id number], [place]. tel:[phone] [facility], [address] [place] [address], [facility], tel:[phone] OP A LL Plnv [facility] 0 [place] Evie. [address] [place] [address], [id number], [place]. tel:[phone] [facility], [address] [place] [address], [facility], tel:[phone] OP A Plnv [facility] 0 Kirby Evie. [address] [place] [address], [id number], [place]. tel:[phone] [facility], [address] [place] [address], [facility], tel:[phone] OP A Plnv [facility] 0 Hsu Reza. [address] [place] [address], [id number], [place]. tel:[phone] [facility], [address] [place] [address], [facility], tel:[phone] OP A Plnv [facility] 0 0 Rene Jorge. [address] [place] [address], [address] [place] [address], [place]. tel:[phone] [facility], [address] [place] [address], [facility], [place] tel:[phone] OP A Plnv [facility] 0 López Ania. [address] [place] [address], [id number], [place]. tel:[phone] [facility], [address] [place] [address], [facility], tel:[phone] [facility] Wtbry [address] MAT (*Medication Assisted [place]) (chief complaint) 0 Niall Sauer. [address] [place] [address], [id number], [place]. tel:[phone] [facility], [address] [place] [address], 18653, [place] tel:[phone] OP A Plnv [address] [place] [address] 6202 0 Kris Salinas. [address] [place] [address], [id number], [place]. tel:[phone] [facility], [address] [place] [address], 18333, [place] tel:[phone] [facility] Care Wtbry [address] MAT (*Medication Assisted [place]) (chief complaint) Hepatitis CBody mass index (BMI) 25.0-25.9, adultEncntr screen exam for other mental hlth and behavrl disord 3- 0 Niall Sauer. [address] [place] [address], [id number], [place]. tel:[phone] [facility], [address] [place] [address], [facility], [place] tel:[phone] OP A Plnv [facility] 2202 0 Kristenkadeem Ramirez. [address] [place] [address], [id number], [place]. tel:[phone] [facility], [address] [place] [address], [facility], [place] tel:[phone] OP A Bris 225 NMS Dec-1 2-202 0 Broderick Diann. [address] [place] [address], [id number], [place]. tel:[phone] [facility], [address] [place] [address], 19803, [place] tel:[phone] OP A Bris 225 NMS Mar-1 2-202 0 Ransom Diann. [address] [place] [address], [id number], [place]. tel:[phone] [facility], [address] [place] [address], [facility], [place] tel:[phone] OP A Bris 225 NMS Mar-0 5-202 0 Asif Boswell. [address] [place] [address], [address] [place] [address], [place]. tel:[phone] [facility], [address] [place] [address], [facility], tel:[phone] OP A Bris 225 NMS Feb-2 0-202 0 Asif Andreia. [address] [place] [address], [address] [place] [address], . tel:[phone] [facility], [address] [place] [address], [facility], tel:[phone] OP A Bris 225 NMS Feb-1 3-202 0 Asif Andreia. [address] [place] [address], [id number], [place]. tel:[phone] [facility], [address] [place] [address], [facility], tel:[phone] OP A Bris 225 NMS b- 1-202 0 Asif Andreia. [address] [place] [address], [address] [place] [address], . tel:[phone] As per patient privacy policy some of [...] Registry Payers Payer name Insurance type Covered libertarian ID Authoriza tion(s) Kitty Charles [id number] Kitty Charles [id number] Kitty Charles [id number] Kitty Charles [id number] State Probation [facility] [id number] Social History Type Description Quantity Date Captured Comments Alcohol Use Details Unknown Caffeine Use Details Unknown Tobacco Use Status No Information Smoking Status No Information Sex Female Sexual Orientation Bisexual Gender Identity Female Chief Complaint And Reason For Visit No Information Plan Of Treatment Date Type Action Status Goal Influenza vaccine. Due on due Goal HPV. Due on due Goal Td vaccine. Due on due Goal Pap/HPV testing. Due on due Goal Health Literacy Assessment. Due on due Goal Unhealthy drug u se screening. Due on due Goal Tdap. Due on due Goal Hepatitis C scre [...] due Goal HPV. Due on due Goal HPV. Due on [...] Influenza vaccine. Due on Oc due Goal Unhealthy drug u se screening. Due on due Goal Hepatitis C scre ening. Due on due Goal Pap/HPV testing. Due on due Goal Lifestyle education regardin g diet completed Goal Tobacco cessation counseling completed Goal Pap/HPV testing. Due on due Goal Health Literacy Assessment. Due on due Goal Unhealthy drug u se screening. Due on due Goal Depression scree demario. Due on due Goal Td vaccine. Due on due Goal HIV 1/0/2 Ag/Ab w/Rflx. Due on due Goal HPV. Due on due Goal Tdap. Due on due Goal Influenza vaccine. Due on due Goal Hepatitis C scre ening. Due on due Goal Tobacco cessation counseling completed Goal Lifestyle education regardin g diet completed Goal Tdap. Due on due Goal Depression scree demario. Due on due Goal HIV 1/0/2 Ag/Ab [...] completed Goal PAP. Due on due Goal Td [...] Depression scree demario. Due on due Goal HIV 1/0/2 Ag/Ab w/Rflx. Due on due Goal Health Literacy Assessment. Due on due Goal Td vaccine. Due on due Goal HIV 1/0/2 Ag/Ab w/Rflx. Due on due Goal Depression scree demario. Due on due Goal Influenza vaccine. Due on due Goal Tdap. Due on due Goal Health Literacy Assessment. Due on due Goal PAP. Due on due Goal Lifestyle education regardin g diet completed Goal Td vaccine. Due on due Goal Health Literacy Assessment. Due on due Goal Tdap. Due on due Goal HIV 1/0/2 Ag/Ab w/Rflx. Due on due Goal PAP. Due on due Goal Influenza vaccine. Due on Wi due Goal Depression scree demario. Due on [...] on due Goal Influenza vaccine. Due on Wi due Goal PAP. Due on due Goal [...] Lifestyle education regardin g diet completed Goal Influenza vaccine. Due on due [...] Goal Td vaccine. Due on due Goal Lifestyle education regardin g diet completed Goal Dietary manageme nt education, guidance, and counseling completed Referral Ordered: Referrals: Medication Assisted Treatment (MAT). Evaluate and treat ordered Future Order: Lab Order RPR (DX) W/REFL TITER AND CONFIRMATORY TESTING ([id number]), Sent on: Sent Future Order: Lab Order CHLAMYDI A/NEISSERIA GONORRHOEAE RNA, TMA UROGENITAL ([id number]), Sent on: Sent Future Order: Lab Order [facility] Cu stom Tox Panel v3 ([id number]), Ordered on: Ordered Future Order: Lab Order HCG, TOT AL, QN ([id number]), Sent on: Sent Future Order: Lab Order CBC (H/H , RBC, INDICES, WBC, PLT) ([id number]), Sent on: Sent Future Order: Lab Order COMPREHE NSIVE METABOLIC PANEL ([id number]), Sent on: Sent Future Order: Lab Order HEMOGLOB IN A1C (496), Sent on: Sent Future Order: Lab Order HEPATITI S PANEL, ACUTE W/REFLEX ([id number]), Sent on: Sent Future Order: Lab Order HIV 1/2 ANTIGEN/ANTIBODY, FOURTH GEN W/ REFLEX ([id number]), Sent on: Sent Future Order: Lab Order LIPID PA ERWIN ([id number]), Sent on: Sent Future Order: Lab Order TSH W/RE FLEX TO FREE T4 ([id number]), Sent on: Sent Future Order: Lab Order RPR (DX) W/REFL TITER AND CONFIRMATORY TESTING ([id number]), Sent on: Sent Future Order: Lab Order VITAMIN D, 1,25 DIHYDROXY LC/MS/MS ([id number]), Sent on: Sent Future Order: Lab Order VITAMIN B12/FOLATE, SERUM PANEL ([id number]), Sent on: Sent Future Order: Lab Order C. TRACH /N. GONORR RNA, TMA, CERVICAL/URETHRAL/VAGINAL/URINE ([id number]), Sent on: Sent History Of Present Illness Encounter Date Complaint History Of Prese nt Illness back pain Symptoms are agg ravated by standing and twisting. Symptoms are relieved by rest. Associated symptoms include numbness in the buttock. Pertinent negatives include loss of balance and weakness. Additional information: reports presenting to [facility] last week and had emergency MRI due to numbness/tingling of groin, hx of bulging disc, established with [facility] and has appt on 06/02 for her [...] observation for anxiety. [facility] - reports feeling off - reports tips of toe are numb - rash persistsP !was doing PHP @ [facility] Right shoulder pain Onset: 1 mon ago. [...] for routine labs. will be tx to [facility] as she recently moved there. getting medication management from [facility] in [place], states she will remain there as well. denies any specific questions or concerns. reports continued back pain. records will be req Medication MAT (*Medication Assisted [place]) Ad ditional information: UTOX + THC, AMP. MAT (*Medication Assisted [place]) er follow up The symptoms are reported as being mild. She states the symptoms are acute. pt states she is going to the experience specialist through [facility] later this afternoon. pt states that she wants to wait for her appointment today to decide which medications she would like to pursue and does not want a MAT eval at this time. States she will be engaging with in [place] relapse The symptoms are reported as being mild. She states the symptoms are chronic. Telephonic visit to discuss pt's progress in the MAT program. Pt states that she has stopped all of her psychiatric medications prescribed by [facility] and was recently seen at [facility] in [place] for a intake and states that she [...] be staying at her sister's house in [place]. Of note pt will have to engage [...] states the symptoms are chronic. Per front desk person staff, pt comes to front desk person and demands to be seen for med management visit despite not being scheduled for today. Pt however is scheduled with her clinician. windows desktop engineer states permission was given by configuration management administrator for pt to have both visits in same day. Pt says she is getting grief from her Skylights Assembler due to not attending the scheduled visits [...] that was performed. Pt says she called [facility] and they said they would need to see her if she passed another clot. Other than this new issue, pt says she is actually doing really well. She says she got a job at [email or web address] and this is going well. She is [...] I just haven't been on meds. This staff writer discusses that no med will be [...] excited to go to online school @ [employer] for bachelors in business administrationPt is currently [...] period of time and started that. This staff writer instructs pt to discontinue this as [...] needs more frequent contact with both this staff writer and her clinician in order to [...] Oxycodone and THC. She is engaged in [employer] for [employer]. Recent D&C Tuesday. Stopped all of her [...] she took Geodon while I was in detention and that helped her feel calmer and [...] safe, staying at her aunt's home in [place] but has some times she has EULALIO and thinks this is due to the worries about her ex finding her, My head is all over the place. Pt says she took a Gabapentin on a few occasions but didn't even find it that helpful. States she now has insurance via [employer] through, she thinks, February and plans to [...] less, adult rtc as needed Take m marieications as directedMoist heat for 20-30 minutes, gentle [...] you start treatment. Related to Hepatitis C Dietary management e ducation, guidance, and counseling Related to Body mass index [BMI] 27.0-27.9, adult Giving encouragement to exercise Related to Body mass index [BMI] 27.0-27.9, adult Giving encouragement to exercise Related to Body mass index [BMI] 27.0-27.9, adult Dietary management e ducation, guidance, and counseling Related to Body mass index [BMI] 27.0-27.9, adult You had a physical e xam today [...] general adult medical exam w/o abnormal findings You received vaccine s today. The arm [...] schedule a follow-up visit with a nurse career development associate who can help ensure your vaccines are up to date. Our nurses can work with you under my supervision for the next 6 months or so to help get other chronic illnesses under control. The plan for today's visit was discussed with you today and you verbalized an understanding and were in agreement of this plan. Related to Encounter for immunization Giving encouragement to exercise Related to Body [...] 40mg daily. Related to Bipolar disorder, unspecified Dietary management e ducation, guidance, and counseling Related to Body mass index (BMI) 25.0-25.9, adult Giving encouragement to exercise Related to Body mass index (BMI) 25.0-25.9, adult As per patient privacy policy some of the clinical information may not be visible. Assessments Type Assessment Date No Information
--- OUTSIDE RECORDS SUMMARY | 2024-11-29 14:45 | XMS_ITS | Clinical Summary ---
Author Organization [facility] Address [address] [place] [address] Care Team Providers Care Concrete Tile Machine Operator Name Role Phone Unavailable Primary Care Provider [...]
--- OUTSIDE RECORDS SUMMARY | 2024-11-29 14:45 | XMS_ITS | Clinical Summary ---
Author Organization [facility] Address [address] [place] [address] Care Team Providers Care Dispute Resolution Specialist Name Role Phone Renea Ho CORRUGATED BOX MACHINE OPERATOR Unavailable [phone] Dontrell Foley MD Unavailable [phone] Stevenson Ac CM Unavailable Abran Howard MD Unavailable [phone] Lenard Ferraro Unavailable [phone] Kesha Dawson URBAN PLANNER Unavailable Cassandra Santos JOGGLE PRESS OPERATOR Unavailable Pcp, No Primary Care Provider Unavailabl e Asuncion Whyte Unavailable Rhonda Edmondson Unavailable Miesha Elam RAIL CAR MECHANIC Unavailable [phone] Laisha Jones CORRUGATED BOX MACHINE OPERATOR Unavailable [phone] Chato Carroll URBAN PLANNER Unavailable Lisseth Avendano RAIL CAR MECHANIC Unavailable Kacy Pedro BS Unavailable [phone] Rivka Metzger HEALTH COORDINATOR Unavailable Lilliana Connolly JOGGLE PRESS OPERATOR Unavailable Maria Luz Dai Unavailable Yamini Hauser JOGGLE PRESS OPERATOR Unavailable [phone] Allergies Active Allergy Reactions Criticality Noted Date [...] from the original note were not included. [facility] [address] [facility] RC JOSÉ PATO RES MDTWN [address] [facility] [place] [address] MY SAFETY PLAN Name: Lucy Barnett Date: 02/24/2021 MR#: [id number] The one thing that is most important [...] 2. Name: [facility] 3. Name: Sweta Philippe Additional Resources: [place] infoline 211, Suicide Prevention Lifeline 4-704-426-ZFEY (0510), Text Hello to 847976, 868 Step 6 - Making the environment safe/access to guns: No This tool has been adapted from the [employer] Safety Plan [facility] Form 416946 R10-18 Pg 1 of 1 Post traumatic [...] CMIA Nonreactive Nonreactive 02/14/2023 10:10 AM EDT [facility] Comment: Results show no [...] EDT 02/12/2023 9:31 AM EDT Lillie Hamlin JOGGLE PRESS OPERATOR LAB BLOOD ORDERABLES HOSPITAL LAB See Below [facility] [address] [place] [address] from Last 3 Months or Most Recently Relevant to Health Maintenance Advance Directives * Full Code (Latest Code Status on File) Date Activated Date Inactivated Comments 02/12/2023 11:52 AM 03/11/2023 3:07 PM * Full Code Date Activated Date Inactivated Comments 02/25/2021 9:49 PM 03/15/2021 3:21 PM Care Teams Dispute Resolution Specialist Relationship Specialty Start Date End Date Pcp, No PCP - General General Medicine 06/11/22 Renea Ho CORRUGATED BOX MACHINE OPERATOR [address] [place] [address] Clinician Social Work 02/18/21 Dontrell Foley MD [address] [place] [address] Psychiatry, General 02/19/21 Stevenson Ac CM [address] [place] [address] Clinician Social Work 02/26/21 Abran Howard MD [address] [place] [address] Psychiatry, General 03/09/21 Lenard Ferraro [address] [place] [address] Clinician Social Work 03/10/21 Kesha Dawson LCSW [address] [place] [address] Machinist Outside Clinical Social Work 04/08/21 Cassandra Santos APRN [address] [place] [address] Nurse Practitioner Psychiatry, [facility] 11/16/21 Asuncion Whyte [address] [place] [address] Clinician Social Work 06/13/22 Rhonda Edmondson [address] [place] [address] Clinician Social Work 06/16/22 Miesha Elam, [facility] [address] [place] [address] Clinician Social Work 06/17/22 Laisha Jones LPC [address] [place] [address] Clinician Clinical Social Work 06/17/22 Chato Carroll LCSW [address] [place] [address] [phone] Machinist Outside Clinical Social Work 06/21/22 Lisseth Avendano, [address] [address] Clinician Social Work 06/23/22 Kacy Pedro BS [address] [place] [address] [phone] Clinician Social Work 06/28/22 Rivka Metzger LPN [address] [place] [address] [phone] Licensed Practical Nurse 07/01/22 Lililana Connolly APRN [address], [place] [phone] Nurse Practitioner Psychiatry, General 07/14/22 Maria Luz Dai [address], [place] [phone] Clinician Social Work 08/28/22 Yamini Hauser APRN [address], [place] [phone] Nurse Practitioner Psychiatry, Geriatric 10/25/22
== END 2024-11-29 14:42 | disposition home or self-care (01) ==
LOC: HO.NEURO 14:41
PROVIDERS: PCP Physician Assistant Medical; Visit Provider Anesthesiology
DX: M54.12 Radiculopathy, cervical region (principal); M47.812 Spondylosis without myelopathy or radiculopathy, cervical region; M54.51 Vertebrogenic low back pain; G89.4 Chronic pain syndrome
CPT/HCPCS: 95886; 95909; 99212

== ENCOUNTER → 2024-11-29 15:08 | Outpatient (BNV) | payer MEDICAID, SELFPAY | PROVIDERS: PCP Physician Assistant Medical; Visit Provider Physical Medicine & Rehabilitation | DX: M79.601 Pain in right arm (principal) | CPT/HCPCS: 95886; 95909 ==